=== PATIENT | male | born 1960 | race Hispanic/Latino ===

== ENCOUNTER 2017-07-05 15:20 | Inpatient (IN) | payer MEDICARE ==
[2017-07-05 16:10] LABS: Bilirubin Negative (Negative); Blood, Urine Large (Negative); Glucose, Urine (Dipstick) Negative (Negative); Ketone, Urine Negative (Negative); Nitrite Positive (Negative); Protein, Urine (Dipstick) 100 mg/dL (Neg-Trace)
[2017-07-05 16:13] LABS: Bacteria/HPF 3+ HPF (None Seen); Hyaline Casts/LPF 0-3 HYALINE CAST LPF (0-3 Hyaline); RBC/HPF GREATER THAN 50-TNTC HPF (0-3); Squamous Epithelial 0-3 HPF (0-3)
--- NOTE | 2017-07-05 16:22 | RAD ---
PORTABLE CHEST ONE VIEW: Date: 07-05-17 Time: 4:09 p.m. History: Dyspnea. FINDINGS/IMPRESSION: Comparison made with exam of 04-10-17. There are changes of median sternotomy. Left sided AICD remains in place. The heart is enlarged. Mil d pulmonary vascular congestion is present. No lobar consolidation, pneumothorax, or large effusions are seen. POS: [facility]
[2017-07-05 16:25] LABS: Renal Epithelial None Seen HPF (0-3); Transitional Epithelial NONE SEEN HPF (0-3)
[2017-07-05 16:27] LABS: #Lymphocytes 0.5 thou/uL (1.20-3.40); #Monocytes 0.4 thou/uL (0.11-0.59); #Neutrophils 3.3 thou/uL (1.40-6.50); %Basophils 0.2 % (0.0-1.0); %Eosinophils 0.8 % (0.0-10.0); %Lymphocytes 11.4 % (21.0-51.0); %Monocytes 9.8 % (0.0-10.0); Hematocrit 26.2 % (42.0-52.0); Mean Platelet Volume 8.6 fL (7.4-10.4); Red Blood Cell (RBC) Count 2.59 mill/uL (4.70-6.10); White Blood Cell (WBC) Count 4.2 thou/uL (4.8-10.8)
[2017-07-05 16:32] LABS: ALT (SGPT) 7 U/L (8-55); AST (SGOT) 18 U/L (5-34); Alkaline Phosphatase 261 U/L (40-150); Anion Gap 16 mmol/L (10-20); BUN (Urea Nitrogen) 30 mg/dL (8.4-25.7); Bilirubin, Total 1.4 mg/dL (0.2-1.2); CK (CPK) 54 U/L (30-200); Calc. Creatinine Clearance 0 mL/min (70-130); Calcium 8.6 mg/dL (7.8-10.44); Carbon Dioxide 30 mmol/L (22-29); Chloride 100 mmol/L (98-107); Estimated GFR-MDRD 43; Globulin 3.6 g/dL (2.4-3.5); Protein, Total 6.6 g/dL (6.0-8.3)
[2017-07-05 16:35] LABS: Lactic Acid - Sepsis 2.4 mmol/L (0.5-2.2)
[2017-07-05 16:36] LABS: Troponin I 0.048 ng/mL (< 0.028)
[2017-07-05] MEDS ORDERED: Piperacillin/Tazobactam 3.375 GM in Sodium Chloride 0.9% 100 ML IVPB SCH (17:45)
[2017-07-05] MEDS ORDERED: Ondansetron ODT 4 MG TAB PO PRN (21:55)
[2017-07-05] MEDS ORDERED: Dextrose 5% in Water 1,000 ML IV PRN (21:55)
[2017-07-05] MEDS ORDERED: Acetaminophen 500 MG TAB PO PRN (21:55)
[2017-07-05] MEDS ORDERED: Non-Formulary Item 1 EACH (Ranitidine Hcl [Ranitidine Hcl] 150 MG) PO SCH (21:55)
[2017-07-05] MEDS ORDERED: hydrALAZINE 20 MG/ML VIAL SLOW IVP PRN (21:55)
[2017-07-05] MEDS ORDERED: cloNIDine 0.1 MG TAB PO PRN (21:55)
[2017-07-05] MEDS ORDERED: Dextrose 50% Abboject 50 ML SYRINGE SLOW IVP PRN (21:55)
[2017-07-05] MEDS ORDERED: HumaLOG 300 UNITS/3 ML VIAL SC PRN (21:55)
[2017-07-05] MEDS ORDERED: Ondansetron HCl/PF 4 MG/2 ML Vial IVP PRN (21:55)
[2017-07-05] MEDS ORDERED: Sodium Chloride 0.9% 1,000 ML IV SCH (22:02)
[2017-07-05] MEDS ORDERED: Acetaminophen 325 MG TAB PO PRN (22:02)
[2017-07-05] MEDS: Sodium Chloride 0.9% 1,000 ML IV SCH (22:39)
--- NOTE | 2017-07-05 23:52 | HP ---
PRIMARY CARE PROVIDER: Dr. Morales. CHIEF COMPLAINT: Shortness of breath and chest pain. HISTORY OF PRESENT ILLNESS: This is a 57-year-old male who was recently placed on hospice with the [facility] agency over the last month and a half according to the patient. The patient stat es that he had increasing shortness of breath and swelling in the scrotum and lower extremities with some chest pain. The patient admitted to substernal chest pain over the last several hours prior t o evaluation in the emergency room, and was evaluated by EMS personnel, given 1 aspirin and 2 sublin gual nitroglycerins. The patient was also placed on oxygen supplementation and brought to the emerg ency room for evaluation. The patient states that he revoked his hospice status, stating that he di d not want to and wanted treatment. The patient denied any specific fever or chills, but admits to a cough over the last 7-9 months. The patient admits the sputum is brownish in appearance witho ut hemoptysis. The patient states he is minimally ambulatory at home, needing some assistance due t o a left udwiz-wbw-usvy amputation with a prosthesis device. The patient denied any recent fall or chest trauma. The patient initially rated the pain in chest, 8/10, worse with deep inspiration, imp roved with resting. The patient states that he was unhappy with hospice care and decided to revoke hospice and pursue treatment. The patient states approximately a week prior to this evaluation, he was given a Novak catheter due to urinary retention and [facility]. In the emergency room, the patient underwent general evaluation including chest imaging showing mild pulmonary vascular prominence. The patient also underwent urinalysis showing suspicious for ur inary tract infection and elevated lactic acid level of 2.4. The patient received IV vancomycin, Zo syn and Levaquin in addition to 1 liter of normal saline. The patient met sepsis criteria and has b een referred to the Hospitalist Service for admission. PAST MEDICAL HISTORY: 1. Coronary artery disease status post cardiac stent placement in 02/2017. 2. 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 3. Peripheral vascular disease. 4. Congestive heart failure with ejection fraction of 25% to 30%. 5. Dyslipidemia. 6. Chronic obstructive pulmonary disease. 7. Chronic kidney disease stage 2. PAST SURGICAL HISTORY: 1. Status post 5-vessel coronary artery bypass grafting. 2. Status post cardiac stent placement x3 in 02/2017. 3. Status post left mzioy-hui-sfiv amputation. 4. Status post amputation of several toes on the right foot. 5. Status post lumbar spine surgery. 6. Status post right rotator cuff repair. 7. Status post AICD placement. CURRENT MEDICATIONS: 1. Albuterol sulfate 90 mcg 2 puffs inhaled q.6 hours p.r.n. 2. Anoro Ellipta 1 puff inhaled daily. 3. Aspirin 81 mg 1 tab p.o. daily. 4. Lipitor 40 mg 1 tab p.o. at bedtime. 5. Carvedilol 6.25 mg p.o. b.i.d. 6. Plavix 37.5 mg p.o. daily. 7. Ferrous sulfate 325 mg 1 tab p.o. daily. 8. Gabapentin 800 mg p.o. t.i.d. 9. [place] 10/325 mg 1 tab p.o. q.8 hours p.r.n. pain. 10. Dulcolax suppositories 10 mg rectally daily p.r.n. constipation. 11. Glargine insulin 5 units subcutaneously t.i.d. 12. DuoNebs t.i.d. p.r.n. 13. Isosorbide mononitrate 15 mg p.o. daily. 14. Lasix 120 mg 1-1/2 tablets b.i.d. 15. Levsin 0.125 mg p.o. q.4 hours p.r.n. 16. Nitroglycerin 0.4 mg sublingually q.5 minutes p.r.n. chest pain. 17. Protonix 40 mg 1 tab p.o. b.i.d. 18. Potassium chloride 20 mg p.o. daily. 19. Ranitidine 150 mg p.o. t.i.d. 20. Sertraline 50 mg 1 tab p.o. at bedtime. 21. Tamsulosin 0.4 mg p.o. daily. 22. Tessalon Perles 100 mg p.o. t.i.d. p.r.n. ALLERGIES: No known drug allergies. FAMILY HISTORY: Mother at 73 years of age, alive and well. SOCIAL HISTORY: Patient resides in [place], [place]. Smoked up to 3-4 cigarettes his entire life. No alcohol use. Smokes marijuana daily. Previously on hospice with [facility], asim ently revoked. REVIEW OF SYSTEMS: Otherwise negative except as stated per HPI. Constitutional: Weight loss or gain, ability to conduct usual activities. Skin: Rash, itching. Eyes: Double vision, pain. ENT/Mouth: Nose bleeding, neck stiffness, pain, tenderness. Cardiovascular: Palpitations, dyspnea on exertion, orthopnea. Respiratory: Shortness of breath, wheezing, cough, hemoptysis, fever or night sweats. Gastrointestinal: Poor appetite, abdominal pain, heartburn, nausea, vomiting, constipation, or diar thu. Genitourinary: Urgency, frequency, dysuria, nocturia. Musculoskeletal: Pain, swelling. Neurologic/Psychiatric: Anxiety, depression. Allergy/Immunologic: Skin rash, bleeding tendency. PHYSICAL EXAMINATION: VITAL SIGNS: On admission, blood pressure 109/50, pulse 60, respiratory rate 17, temperature 98.2 d egrees Fahrenheit and O2 saturation 98% on 3 liters per minute by nasal cannula. GENERAL APPEARANCE: This is a 57-year-old male, alert and oriented x3, pleasant, conversan t, in no acute distress. HEENT: Pupils are equal, round and reactive to light and accommodation. Extraocular muscles are in tact. No scleral icterus, no conjunctival injection. Nares patent. OP is clear. NECK: Supple. No cervical adenopathy, no thyromegaly, no carotid bruits, no JVD appreciated. Cerv ical spine with full active and passive range of motion. CHEST: Decreased breath sounds in the bases bilaterally. Occasional scattered rhonchi. CARDIOVASCULAR: S1 and S2 with distant heart sounds. ABDOMEN: Obese, firm, nontender and nondistended. Bowel sounds are positive in all four quadrants. There is no hepatosplenomegaly, no abdominal bruits, no rebound or guarding appreciated. [place] s are difficult to palpate due to patient's body habitus. EXTREMITIES: Right lower extremity with edema to the knee. Hyperpigmentation changes consistent wi th chronic venous stasis. Pulses diminished bilaterally at the right dorsalis pedis, posterior tibi al and popliteal arteries. Left lower extremity with below the knee amputation, stump intact with p rosthesis in place. NEUROLOGIC: Cranial nerves II-XII are grossly intact. No focal or lateralizing signs appreciated. PERTINENT LABORATORY AND X-RAY FINDINGS: Sodium 142, potassium 4.3, chloride 100, CO2 of 30, BUN 30 , creatinine 1.65 with estimated GFR of 43, glucose 144, lactic acid level 2.4, calcium 8.6, total b ilirubin 1.4, AST 18, ALT of 7, alkaline phosphatase 61, total CK 54, troponin 0.048. BNP 1175 prev iously noted at 619 822, albumin 3.0. CBC showed a white blood cell count 4.2, hemoglobin 8.3, dereck tocrit 26.2, MCV 101, platelet count 75 with 78% neutrophils. Urinalysis showed positive protein, l arge amount of blood, positive nitrite, large leukocyte esterase with greater than 50 to too numerou s to count rbc's per high power field and 11-20 wbc's per high powered field, 3+ bacteria noted. Po rtable chest x-ray dated 07/05/2017 showed mild pulmonary vascular prominence. Left-sided AICD mich ce in place. No lobar consolidation. EKG dated 07/05/2017 by my interpretation shows sinus mechani sm with heart rates in the 70s. Attenuated R waves noted in the precordial leads. Normal axis. No acute ST-T wave changes appreciated. T-wave flattening in lead V5 and V6. ASSESSMENT AND PLAN: 1. Sepsis. Patient will be admitted to the Intermediate Care Unit. Suspected urinary tract source preliminarily. We will continue Rocephin 1 gram IV q.12 hours with additional vancomycin 1 gram IV q.12 hours. Await urine and blood culture results. Continue intravenous normal saline at 75 mL pe r hour. Repeat lactate per protocol. 2. Hypotension secondarily to #1, improved with IV fluid hydration. Continue low volume IV fluid r eplacement and avoid antihypertensive medications. 3. Acute kidney injury on chronic kidney disease stage 2. We will continue intravenous fluids as o utlined previously. Avoid nephrotoxic agents and contrast media. Repeat creatinine in the a.m. 4. Chest pain. Suspect secondarily to #1. No current evidence to suggest acute coronary syndrome. Monitor on the telemetry unit. Continue aspirin 81 mg and Plavix 37.5 mg daily. 5. Diabetes mellitus type 2, insulin requiring. Insulin sliding scale for reflexive coverage. Ser ial Accu-Cheks. ADA diet. Resume Glargine insulins 5 units subcutaneously daily. 6. Chronic obstructive pulmonary disease. No evidence to suggest an acute exacerbation. Continue general pulmonary supportive measures. Oxygen as needed to maintain O2 saturations greater than or equal to 90%. 7. Chronic macrocytic anemia. Stable currently. Continue to monitor hemoglobin trend. No evidenc e to suggest acute blood loss. 8. Ischemic cardiomyopathy with ejection fraction of 25% to 30%. We will continue close monitoring of cardiopulmonary status. Continue Lasix 40 mg p.o. b.i.d. 9. Deconditioning. PT, OT evaluation in the a.m. for functional assessment. 10. Prophylaxis. Sequential compression devices while in bed. Protonix 40 mg p.o. b.i.d. 11. Code status is full. Surrogate medical decision maker is patient's son.
[2017-07-06] MEDS: cefTRIAXone\\ROCEPHIN 2 GM, Admixture Fee 1 EACH in Sodium Chloride 0.9% 100 ML IVPB SCH ×2 (00:22→23:27)
[2017-07-06] MEDS: HYDROcodone/Acetaminophen 10/325 mg Tablet PO PRN ×2 (00:23→20:44)
[2017-07-06] MEDS: Vancomycin HCl 1 GM in Premix Bag 1 BAG IVPB SCH ×2 (05:15→15:18)
[2017-07-06 05:34] LABS: ALT (SGPT) Less than 7 U/L (8-55); AST (SGOT) 17 U/L (5-34); Alkaline Phosphatase 232 U/L (40-150); Anion Gap 10 mmol/L (10-20); BUN (Urea Nitrogen) 29 mg/dL (8.4-25.7); Bilirubin, Total 0.9 mg/dL (0.2-1.2); Calc. Creatinine Clearance 81 mL/min (70-130); Calcium 8.2 mg/dL (7.8-10.44); Carbon Dioxide 33 mmol/L (22-29); Chloride 101 mmol/L (98-107); Estimated GFR-MDRD 46; Globulin 3.4 g/dL (2.4-3.5); Protein, Total 6.1 g/dL (6.0-8.3)
[2017-07-06 05:53] LABS: Band 1 % (5-11); Hematocrit 24.4 % (42.0-52.0); Mean Platelet Volume 9.3 fL (7.4-10.4); Neutrophil 77 % (42-75); Red Blood Cell (RBC) Count 2.41 mill/uL (4.70-6.10); White Blood Cell (WBC) Count 3.6 thou/uL (4.8-10.8)
[2017-07-06] MEDS: HumaLOG 300 UNITS/3 ML VIAL SC PRN (06:22)
[2017-07-06] MEDS ORDERED: Non-Formulary Item 1 EACH (Budesonide-Formoterol [Symbicort 160-4.5] 1 PUFF) INH SCH (06:30)
[2017-07-06] MEDS ORDERED: [UNRECOGNIZED DRUG - OTHER] IH SCH (07:00)
[2017-07-06] MEDS: Gabapentin 400 MG CAP PO SCH ×3 (07:20→20:44)
[2017-07-06] MEDS: Ferrous Sulfate 325 MG TAB PO SCH (07:20)
[2017-07-06] MEDS: Clopidogrel Bisulfate 75 MG TAB PO SCH (07:21)
[2017-07-06] MEDS: Famotidine 20 MG TAB PO SCH ×2 (07:21→20:44)
[2017-07-06] MEDS: Pantoprazole 40 MG GRANULES PACKET PO SCH (07:21)
[2017-07-06] MEDS: Mometasone/Formoterol 120 PUFF INHALER INH SCH ×2 (07:38→18:32)
[2017-07-06] MEDS: Insulin Detemir 100 UNITS/ML 5 UNITS in Pre-Filled Syringe 1 EACH SC SCH (08:17)
[2017-07-06] MEDS ORDERED: Non-Formulary Item 1 EACH (Insulin Glargine,Hum.Rec.Anlog 5 UNIT) SQ SCH (09:00)
--- NOTE | 2017-07-06 10:22 | CON ---
DATE OF CONSULTATION: 07/06/2017 HISTORY OF PRESENT ILLNESS: Usman Hein is a 57-year-old obese gentleman who seeks normally care at [facility]. 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 He presented with generalized anasarca, fluid overload and shortness of breath. He was smoking until 2 weeks ago, cigarettes. He also smokes marijuana. He apparently was on hospice which he revo ked. He did not go to [facility] because apparently they were not helping his medical problems. Extensive history with a recent discharge here with a diagnosis of congestive heart failure, EF is at 20-30%. He has a left leg amputation which prevents him from ambulating. Denies any fever, chills, sweats, hemoptysis. PAST MEDICAL HISTORY: Coronary artery disease, diabetes, hypertension, COPD, peripheral vascular dis ease, CVA, hemiparesis. PAST SURGICAL HISTORY: Left BKA, right foot surgery, a single chamber ICD, coronary artery bypass gr aft, multiple stents, spine, back, shoulder surgery. MEDICATIONS: Anoro, tamsulosin, sertraline, potassium, Zofran, morphine, ISMO, DuoNeb, gabapentin, L asix 180, Plavix 75, Coreg, Tessalon, atorvastatin. On his admission he was started on ceftriaxone and vancomycin for presumed infection. LABORATORY AND X-RAY FINDINGS: X-ray shows as noted CHF. White count 3.6, H&H 7 and 24, platelet count is low at 70,000, 77 segs. Creatinine 1.56[place] [address]. Urine is growing Proteus. IMPRESSION: 1. Respiratory failure. 2. Congestive heart failure, ejection fraction 20%. 3. Ongoing tobacco. 4. Chronic obstructive pulmonary disease. 5. Peripheral vascular disease. 6. Renal failure. 7. Anemia. 8. Severe thrombocytopenia. PLAN: I have started neb treatments, deescalate antibiotics once we have all cultures back. [facility] max care as per Cardiology. I will follow while in the [facility].
[2017-07-06] MEDS: Sodium Chloride 0.9% 1,000 ML IV SCH (15:19)
[2017-07-06] MEDS: Furosemide 40 MG/4 ML VIAL SLOW IVP SCH (15:19)
--- NOTE | 2017-07-06 15:52 | PDOC.PN ---
- Subjective Encounter Start Date: 07/06/17 Encounter Start Time: 15:10 Subjective: f/u for sepsis, UTI with Proteus spp. Currently feeling better overall. -: No fever or chills. Some swelling in L thigh and flank region. Appetite -: good. - Objective Resuscitation Status: Resuscitation Status FULL:Full Resuscitation MAR Reviewed: Yes Vital Signs & Weight: Vital Signs (12 hours) Temp Pulse Resp BP Pulse Ox 07/06/17 13:00 61 19 99 07/06/17 07:47 98.0 F 56 L 16 110/60 98 07/06/17 07:39 99 07/06/17 07:08 98.0 F 61 16 100 Weight Weight 240 lb 3.2 oz I&O: 07/05/17 07/06/17 07/07/17 06:59 06:59 06:59 Intake Total 2215 Output Total 1800 Balance 415 Result Diagrams: 07/06/17 04:04 07/06/17 04:04 Additional Labs: Accuchecks 07/06/17 07/06/17 07/05/17 11:10 05:17 22:05 POC Glucose 131 H 166 H 116 H Microbiology 07/05/17 16:00 Urine lawrence catheter Urine Culture - Preliminary Proteus mirabilis 07/05/17 15:55 Venous blood - Right Arm Blood Culture - Preliminary Specimen has been received and culture in progress. No Growth to date. 07/05/17 15:43 Venous blood - Left Hand Blood Culture - Preliminary Specimen has been received and culture in progress. No Growth to date. Laboratory Tests 07/05/17 07/05/17 15:43 15:43 WBC 4.2 L Hgb 8.3 L Plt Count 75 L Creatinine 1.65 H EKG Reviewed by me: Yes (Tele - SR in 70's) Phys Exam - Physical Examination Constitutional: NAD alert, responsive HEENT: PERRLA, oral pharynx no lesions Neck: no JVD, supple diminished in bases bilat Cardiovascular: RRR obese, firm Gastrointestinal: non-tender, positive bowel sounds + edema of L thigh and L flank region L femoral stump intact Musculoskeletal: pulses present Neurological: normal sensation, moves all 4 limbs Psychiatric: A&O x 3 Skin: normal turgor, cap refill <2 seconds Dx/Plan (1) Sepsis Code(s): A41.9 - SEPSIS, UNSPECIFIED ORGANISM Status: Acute Comment: Secondary to UTI with Proteus spp, continue Rocephin another 24h until final sensitivities available, saline lock IVF's (2) BARB (acute kidney injury) Code(s): N17.9 - ACUTE KIDNEY FAILURE, UNSPECIFIED Status: Acute Comment: Improved, saline lock IVF, avoid nephrotoxic meds and contrast media (3) Hypotension Status: Acute Comment: Secondary to #1, improved (4) DM type 2 (diabetes mellitus, type 2) Status: Chronic Comment: Resume Levemir, ISS, serial accuchecks (5) PVD (peripheral vascular disease) Code(s): I73.9 - PERIPHERAL VASCULAR DISEASE, UNSPECIFIED Status: Chronic Comment: Supportive, continue ASA 81mg daily - Plan continue antibiotics, PT/OT, social services assistant, out of bed/ambulate Stable currently -: Continue Rocephin and Vancomycin another 24h pending final cx -: sensitivities -: Saline lock IVF's -: Transfer to Tele unit * AM lab: CMP, CBC
[2017-07-06] MEDS ORDERED: Benzonatate 100 MG CAP PO PRN (16:00)
[2017-07-06] MEDS ORDERED: PROVENTIL INHALER 6.7 G (200 INHALATIONS) INH PRN (16:15)
[2017-07-06] MEDS: Atorvastatin Calcium 40 MG TAB PO SCH (20:44)
[2017-07-06] MEDS: Carvedilol 6.25 MG TAB PO SCH (20:44)
[2017-07-06] MEDS ORDERED: Furosemide 20 MG TAB PO SCH (21:00)
[2017-07-07 05:14] LABS: Band 4 % (5-11); Hematocrit 24.7 % (42.0-52.0); Mean Platelet Volume 8.4 fL (7.4-10.4); Neutrophil 64 % (42-75); Red Blood Cell (RBC) Count 2.46 mill/uL (4.70-6.10); White Blood Cell (WBC) Count 4.1 thou/uL (4.8-10.8)
[2017-07-07 05:18] LABS: Vancomycin, Trough 19.2 ug/mL
[2017-07-07 05:22] LABS: ALT (SGPT) 7 U/L (8-55); AST (SGOT) 15 U/L (5-34); Alkaline Phosphatase 235 U/L (40-150); Anion Gap 10 mmol/L (10-20); BUN (Urea Nitrogen) 27 mg/dL (8.4-25.7); Bilirubin, Total 0.8 mg/dL (0.2-1.2); Calc. Creatinine Clearance 82 mL/min (70-130); Calcium 8.4 mg/dL (7.8-10.44); Carbon Dioxide 34 mmol/L (22-29); Chloride 100 mmol/L (98-107); Estimated GFR-MDRD 49; Globulin 3.4 g/dL (2.4-3.5); Protein, Total 6.2 g/dL (6.0-8.3)
[2017-07-07] MEDS: Vancomycin HCl 1 GM in Premix Bag 1 BAG IVPB SCH (05:49)
[2017-07-07] MEDS: Furosemide 40 MG/4 ML VIAL SLOW IVP SCH ×2 (05:50→14:06)
[2017-07-07] MEDS: Mometasone/Formoterol 120 PUFF INHALER INH SCH ×2 (07:05→18:59)
--- NOTE | 2017-07-07 07:10 | PDOC.EVN ---
Event Note - Event Note Event Note: RN called with 1/2 positive blood culture - already on Vancomycin
[2017-07-07] MEDS: Famotidine 20 MG TAB PO SCH ×2 (10:08→20:49)
[2017-07-07] MEDS: Cefdinir 300 MG CAP PO SCH ×2 (10:08→20:48)
[2017-07-07] MEDS: Ferrous Sulfate 325 MG TAB PO SCH (10:08)
[2017-07-07] MEDS: Gabapentin 400 MG CAP PO SCH ×3 (10:08→20:48)
[2017-07-07] MEDS: Clopidogrel Bisulfate 75 MG TAB PO SCH (10:08)
[2017-07-07] MEDS: Pantoprazole 40 MG GRANULES PACKET PO SCH (10:09)
[2017-07-07] MEDS: Aspirin 81 mg Enteric Coated Tablet PO SCH (10:09)
[2017-07-07] MEDS: Carvedilol 6.25 MG TAB PO SCH ×2 (10:09→20:52)
[2017-07-07] MEDS: Insulin Detemir 100 UNITS/ML 5 UNITS in Pre-Filled Syringe 1 EACH SC SCH (10:10)
--- NOTE | 2017-07-07 12:01 | PDOC.PN ---
- Subjective Encounter Start Date: 07/07/17 Encounter Start Time: 11:30 Subjective: f/u of sepsis and UTI with Proteus spp. Currently on Omnicef. Feeling fine -: no SOB or fever. Working with PT for mobilization. - Objective Resuscitation Status: Resuscitation Status FULL:Full Resuscitation MAR Reviewed: Yes Vital Signs & Weight: Vital Signs (12 hours) Temp Pulse Resp BP BP Pulse Ox 07/07/17 10:09 128/65 07/07/17 08:18 97.5 F L 64 17 128/65 94 L 07/07/17 08:00 97.5 F L 59 L 20 94 L 07/07/17 07:08 100 07/07/17 07:05 59 L 20 100 07/07/17 04:50 100 07/07/17 04:00 97.6 F 61 18 120/61 97 07/07/17 02:01 58 L 16 100 Weight Weight 233 lb I&O: 07/06/17 07/07/17 07/08/17 06:59 06:59 06:59 Intake Total 2215 2440 240 Output Total 1800 2465 Balance 415 -25 240 Result Diagrams: 07/07/17 04:34 07/07/17 04:34 Additional Labs: Accuchecks 07/07/17 07/06/17 07/06/17 05:31 20:33 15:44 POC Glucose 119 H 130 H 142 H Radiology Reviewed by me: Yes (2D echo - EF 25-30%, severe TR, LAE) EKG Reviewed by me: Yes (Tele - sinus rosanna in 50's) Phys Exam - Physical Examination Constitutional: NAD HEENT: PERRLA, oral pharynx no lesions Neck: no JVD, supple diminished in bases Cardiovascular: RRR firm Gastrointestinal: soft, non-tender, positive bowel sounds LLE stump intact Musculoskeletal: pulses present, edema present Neurological: normal sensation, moves all 4 limbs Psychiatric: A&O x 3 Skin: normal turgor, cap refill <2 seconds Dx/Plan (1) Sepsis Code(s): A41.9 - SEPSIS, UNSPECIFIED ORGANISM Status: Acute Comment: Secondary to UTI with Proteus spp, continue Omnicef 300mg BID, saline lock IVF's , resolving (2) BARB (acute kidney injury) Code(s): N17.9 - ACUTE KIDNEY FAILURE, UNSPECIFIED Status: Acute Comment: Improved, saline lock IVF, avoid nephrotoxic meds and contrast media (3) Hypotension Status: Acute Comment: Secondary to #1, improved (4) DM type 2 (diabetes mellitus, type 2) Status: Chronic Comment: Resume Levemir, ISS, serial accuchecks (5) PVD (peripheral vascular disease) Code(s): I73.9 - PERIPHERAL VASCULAR DISEASE, UNSPECIFIED Status: Chronic Comment: Supportive, continue ASA 81mg daily (6) Ischemic cardiomyopathy Code(s): I25.5 - ISCHEMIC CARDIOMYOPATHY Status: Chronic Comment: EF 25-30% , Lasix 40mg IV q12h, follow I/O's (7) Pancytopenia Code(s): D61.818 - OTHER PANCYTOPENIA Status: Chronic Comment: ? etiology, check Iron, Ferritin, Retic count, B12/Folate and stool guaiac - Plan continue antibiotics, PT/OT, hospice social worker, respiratory therapy, out of bed/ ambulate Stable overall -: Continue Lasix 40mg IV q12h -: Saline lock IVF's -: PT for mobilization -: AM lab: BMP, CBC, Ferritin, Iron, Retic count, B12/Folate * .
--- NOTE | 2017-07-07 12:38 | PQF ---
CLINICAL DOCUMENTATION IMPROVEMENT CLARIFICATION FORM: ICD-10 Updated PLEASE DO AN ADDENDUM TO THE PROGRESS NOTE WITH ANY DOCUMENTATION UPDATES OR ADDITIONS AND CARRY THROUGH TO DC SUMMARY. THANK YOU. DATE: 07/07 ATTN: DR. OSMANI CHANDRA Please exercise your independent, professional judgment in responding to the clarification form. Clinical indicators are provided on the bottom of this form for your review Please check appropriate box(s): [ x ] UTI please specify if due to or related to (as applicable): [ x ] Indwelling catheter [ ] Not r/t Indwelling catheter [ ] Unable to determine etiology [ ] Other diagnosis [ ] Unable to determine For continuity of documentation, please document condition throughout progress notes and discharge summary. Thank You. CLINICAL INDICATORS - SIGNS / SYMPTOMS / LABS ER PHYSICIAN DOCUMENTATION 07/05: HE PRESENTED WITH A EASTON D/T TESTICULAR SWELLING THAT WAS PLACED ONE WEEK AGO URINE CX SOURCE 07/05: EASTON CATHETER POSITIVE URINALYSIS ATTENDING PHYSICIAN PN 07/06 & DOCUMENTATION: DX/PLAN: 1. SEPSIS 2/2 UTI RISK FACTORS: EASTON CATHETER PLACED 1 WEEK AGO FOR TESTICULAR SWELLING URINARY RETENTION TREATMENT: IV ANTIBIOTICS (VANCOMYCIN 07/05 - ; IV ROCEPHIN 07/05 - ) IVF (NS 07/05 - ) THANK YOU! Manuela (This form is maintained as a part of the permanent medical record) 2015 [employer]. All Rights Reserved Manuela Moon RN, BSN [email or web address] Office: [phone] [facility]
--- NOTE | 2017-07-07 12:44 | PRG ---
DATE OF SERVICE: 07/07/2017 SUBJECTIVE: Usman Hein this morning is better, less short of breath, less coughing. PHYSICAL EXAMINATION: VITAL SIGNS: Stable. Blood pressure 120/65, sats are 97% on 2 liters, temperature 97.5. I's and O' s are 2440 in and 2465 out. CHEST: Bilateral crackles. CARDIAC: Normal S1, S2, no gallops. ABDOMEN: Soft, no masses. LABORATORY DATA: White count 4,000, hemoglobin and hematocrit is 7 and 24, platelet count is low at 72, creatinine 1.49. Urine is growing Proteus sensitive pretty much. Hold the antibiotics. Suggest deescalating antibiotics, we will notify Dr. Antoine who has seen the patient in the past. Continue cardiac cath.
--- NOTE | 2017-07-07 15:15 | PRG ---
DATE OF SERVICE: 07/07/2017 SERVICE: Pulmonary Medicine. INTERVAL HISTORY: The patient is doing fine from a cardiovascular and respiratory standpoint. He de nies any current fevers, chills, nausea, or vomiting. His breathing is much improved. With the diur etics, he is pulling more fluid off. His lower extremity swelling is improving based on omi zimmer. PHYSICAL EXAMINATION: VITAL SIGNS: Afebrile, pulse 65, blood pressure 134/69, respirations 17, and saturation 99% on 3 lit ers nasal cannula. GENERAL: Patient is awake, alert, no apparent distress. LUNGS: Decent air entry. Dependent crackles are present with no prolonged expiratory phase, wheezin g or rhonchi. HEART: Normal rate, regular. ABDOMEN: Soft, nontender, nondistended. Bowel sounds positive. MUSCULOSKELETAL: No cyanosis or clubbing. Left leg is surgically absent below the knee. He has a r ight transmetatarsal amputation. He has got 2+ pitting in the bilateral lower extremities. GENITOURINARY: Novak catheter in place. NEUROLOGIC: Grossly nonfocal. LABORATORY DATA: WBC 4.1, hemoglobin 7.8, and platelets 72,000. INR 1.49, which is gently down tren ding. Basic metabolic profile is otherwise unremarkable. Alkaline phosphatase is 235. AST and ALT are otherwise normal. Vancomycin trough is 19.2. He has significant red blood cells in the urine. Urine culture is growing Proteus mirabilis, which is pansensitive. One out of two blood cultures is growing coag negative staph. ASSESSMENT: 1. Acute on chronic systolic and diastolic heart failure. 2. Acute hypoxic respiratory failure. 3. Urinary tract infection. 4. Peripheral vascular disease, severe. PLAN: We can direct antibiotics at his Proteus mirabilis. IV fluids will be minimized. We will con tinue to diurese the patient to euvolemia. Pulmonary will continue to follow for the time being.
[2017-07-07] MEDS: Atorvastatin Calcium 40 MG TAB PO SCH (20:49)
[2017-07-08] MEDS: Guaifenesin DM 100-10/5 ML UDCUP PO PRN (03:05)
[2017-07-08 05:35] LABS: Hematocrit 25.9 % (42.0-52.0); Mean Platelet Volume 9.9 fL (7.4-10.4); Red Blood Cell (RBC) Count 2.55 mill/uL (4.70-6.10); White Blood Cell (WBC) Count 3.9 thou/uL (4.8-10.8)
[2017-07-08 05:45] LABS: Anion Gap 9 mmol/L (10-20); BUN (Urea Nitrogen) 28 mg/dL (8.4-25.7); Calc. Creatinine Clearance 79 mL/min (70-130); Calcium 8.5 mg/dL (7.8-10.44); Carbon Dioxide 32 mmol/L (22-29); Chloride 100 mmol/L (98-107); Estimated GFR-MDRD 46; Iron 39 ug/dL (65-175)
[2017-07-08 05:52] LABS: IRF 0.294 Ratio (0.163-0.362); Reticulocyte Count 1.3 % (0.5-1.5)
[2017-07-08 06:00] LABS: Band 1 % (5-11); Neutrophil 83 % (42-75)
[2017-07-08] MEDS: Furosemide 40 MG/4 ML VIAL SLOW IVP SCH (06:27)
[2017-07-08] MEDS: Mometasone/Formoterol 120 PUFF INHALER INH SCH ×2 (08:31→18:37)
[2017-07-08] MEDS: Carvedilol 6.25 MG TAB PO SCH ×2 (09:32→21:25)
[2017-07-08] MEDS: Clopidogrel Bisulfate 75 MG TAB PO SCH (09:32)
[2017-07-08] MEDS: Aspirin 81 mg Enteric Coated Tablet PO SCH (09:32)
[2017-07-08] MEDS: Cefdinir 300 MG CAP PO SCH ×2 (09:32→21:26)
[2017-07-08] MEDS: Famotidine 20 MG TAB PO SCH ×2 (09:33→21:26)
[2017-07-08] MEDS: Ferrous Sulfate 325 MG TAB PO SCH (09:33)
[2017-07-08] MEDS: Gabapentin 400 MG CAP PO SCH ×3 (09:33→21:26)
[2017-07-08] MEDS: Insulin Detemir 100 UNITS/ML 5 UNITS in Pre-Filled Syringe 1 EACH SC SCH (09:36)
--- NOTE | 2017-07-08 12:19 | PDOC.PN ---
- Subjective Encounter Start Date: 07/08/17 Encounter Start Time: 11:30 Pt seen and examined, chart reviewed in its entirety. This is my first visit with this patient. Pt complaint of dry nose today. says hes still 30 pounds up from dry weight since admit, improved form the initial 40. No F/C,no N/V/d/C. not able to walk due to RLE stump edema and inability to wear prosthesis. discussed with case management. Pt plans ot head [facility] on D/c to be with girlfriend. not willing to do rehab. 10 point ROS performed and neg for all systems except as above - Objective Resuscitation Status: Resuscitation Status FULL:Full Resuscitation MAR Reviewed: Yes Vital Signs & Weight: Vital Signs (12 hours) Temp Pulse Resp BP BP Pulse Ox 07/08/17 09:32 142/64 H 07/08/17 08:31 73 16 07/08/17 08:24 94 L 07/08/17 08:22 73 16 07/08/17 07:56 97.8 F 66 16 142/64 H 93 L 07/08/17 04:00 98.0 F 65 20 113/58 L 96 07/08/17 00:18 60 16 Weight Admit Weight 240 lb 3.2 oz Weight 234 lb I&O: 07/07/17 07/08/17 07/09/17 06:59 06:59 06:59 Intake Total 2440 1440 Output Total 2465 1925 Balance -25 -744 Result Diagrams: 07/08/17 04:45 07/08/17 04:44 Additional Labs: Accuchecks 07/08/17 07/08/17 07/07/17 11:44 06:21 20:27 POC Glucose 126 H 108 386 H 07/07/17 17:12 POC Glucose 177 H Radiology Reviewed by me: Yes EKG Reviewed by me: Yes Phys Exam - Physical Examination Constitutional: NAD HEENT: PERRLA, moist MMs, sclera anicteric, oral pharynx no lesions Neck: no nodes, supple, full ROM Respiratory: no wheezing, no rales, no rhonchi faint bibasilar rales Cardiovascular: RRR, no significant murmur, no rub HSM, 2/6 LLSB Gastrointestinal: soft, non-tender, no distention, positive bowel sounds Musculoskeletal: pulses present edema MALLORY, including RLE BKA stump Neurological: non-focal, normal sensation, moves all 4 limbs Lymphatic: no nodes Psychiatric: normal affect, A&O x 3 Skin: no rash, normal turgor, cap refill <2 seconds Dx/Plan (1) UTI (urinary tract infection) Status: Acute Qualifiers: Urinary tract infection type: acute cystitis Hematuria presence: with hematuria Qualified Code(s): N30.01 - Acute cystitis with hematuria Comment: present on admit (2) Proteus (mirabilis) (morganii) as the cause of diseases classified elsewhere Code(s): B96.4 - PROTEUS (MIRABILIS) (MORGANII) CAUSING DIS CLASSD [id number] Status: Acute (3) BARB (acute kidney injury) Code(s): N17.9 - ACUTE KIDNEY FAILURE, UNSPECIFIED Status: Acute Comment: Improved, saline lock IVF, avoid nephrotoxic meds and contrast media. Cr stable form admit, increased eleno march of 2017/. increase lasix, on 40 IV bid , only a fraction of home dose (4) Hypotension Status: Acute Qualifiers: Hypotension type: other hypotension type Qualified Code(s): I95.89 - Other hypotension Comment: Secondary to #1, improved (5) Sepsis Code(s): A41.9 - SEPSIS, UNSPECIFIED ORGANISM Status: Acute Comment: Secondary to UTI with Proteus spp, continue Omnicef 300mg BID, saline lock IVF's , resolving (6) Ischemic cardiomyopathy Code(s): I25.5 - ISCHEMIC CARDIOMYOPATHY Status: Chronic Comment: EF 25-30% , Lasix 40mg IV q12h, follow I/O's (7) Pancytopenia Code(s): D61.818 - OTHER PANCYTOPENIA Status: Chronic Comment: ? etiology, check Iron, Ferritin, Retic count, B12/Folate and stool guaiac (8) Acute on chronic systolic and diastolic heart failure, NYHA class 2 Code(s): I50.43 - ACUTE ON CHRONIC COMBINED SYSTOLIC AND DIASTOLIC HRT FAIL Status: Acute (9) HLD (hyperlipidemia) Code(s): E78.5 - HYPERLIPIDEMIA, UNSPECIFIED Status: Acute Qualifiers: Hyperlipidemia type: unspecified Qualified Code(s): E78.5 - Hyperlipidemia , unspecified (10) HTN (hypertension) Code(s): I10 - ESSENTIAL (PRIMARY) HYPERTENSION Status: Acute Qualifiers: Hypertension type: essential hypertension Qualified Code(s): I10 - Essential (primary) hypertension - Plan cont current plan of care, continue antibiotics, PT/OT * . anticipste discharge as early as tomorrow
[2017-07-08] MEDS: Furosemide 100 MG/10 ML VIAL SLOW IVP SCH (14:55)
--- NOTE | 2017-07-08 15:00 | PRG ---
DATE OF SERVICE: 07/08/2017 SERVICE: Pulmonary Medicine. INTERVAL HISTORY: The patient is doing fine from a respiratory standpoint. He is on room air presen tly. He just got transitioned to room air because his saturations were fine on 1 liter nasal cannula . Otherwise, he did have no complaints of fevers, chills, nausea, vomiting or chest discomfort. His lower extremity swelling is improving, but still prevents him from putting his prosthetic leg on. PHYSICAL EXAMINATION: VITAL SIGNS: Afebrile, pulse 67, blood pressure 129/62, respirations 18, saturation 95% on room air. GENERAL: Awake, alert, in no apparent distress. LUNGS: Excellent air entry. There is no prolonged expiratory phase. I do not appreciate wheezing o r rhonchi. Crackles are much improved. HEART: Normal rate, regular. ABDOMEN: Soft, nontender, nondistended, bowel sounds positive. MUSCULOSKELETAL: No cyanosis or clubbing. No pitting in the bilateral lower extremities. NEUROLOGIC: Grossly nonfocal. LABORATORY DATA: WBC 3.9, hemoglobin 8.1 and stable. Platelets 86,000. Creatinine 1.55 and roughly stable. BUN 28. Basic metabolic profile is otherwise unremarkable. Ferritin is elevated. Folate and B12 fall within normal limits. Vancomycin trough was 19.2. Urinalysis is growing Proteus mirabi lis, which is essentially pansensitive. Coag negative Staph is growing in 1 of 2 blood cultures. ASSESSMENT: 1. Acute on chronic systolic and diastolic heart failure. 2. Acute hypoxic respiratory failure, resolved. 3. Urinary tract infection. 4. Peripheral vascular disease, severe. We will continue diuresing the patient until he returns to euvolemia. He has made a significant headway over the past 48 hours and my hope is that he will cont inue to improve. Pulmonary will continue to follow intermittently during this hospital stay. If he gets into trouble, please call Dr. Ritter over the weekend.
[2017-07-08] MEDS: HYDROcodone/Acetaminophen 10/325 mg Tablet PO PRN (17:04)
[2017-07-08] MEDS: Atorvastatin Calcium 40 MG TAB PO SCH (21:25)
[2017-07-09 05:19] LABS: #Eosinphils 0.1 thou/uL (0.0-0.7); #Lymphocytes 0.5 thou/uL (1.20-3.40); #Monocytes 0.4 thou/uL (0.11-0.59); #Neutrophils 2.7 thou/uL (1.40-6.50); %Basophils 0.5 % (0.0-1.0); %Eosinophils 1.5 % (0.0-10.0); %Lymphocytes 14.6 % (21.0-51.0); %Monocytes 10.1 % (0.0-10.0); Hematocrit 25.2 % (42.0-52.0); Mean Platelet Volume 8.8 fL (7.4-10.4); Red Blood Cell (RBC) Count 2.51 mill/uL (4.70-6.10); White Blood Cell (WBC) Count 3.7 thou/uL (4.8-10.8)
[2017-07-09] MEDS: Furosemide 100 MG/10 ML VIAL SLOW IVP SCH ×2 (05:37→14:13)
[2017-07-09 05:38] LABS: Anion Gap 10 mmol/L (10-20); BUN (Urea Nitrogen) 34 mg/dL (8.4-25.7); Calc. Creatinine Clearance 67 mL/min (70-130); Calcium 8.6 mg/dL (7.8-10.44); Carbon Dioxide 33 mmol/L (22-29); Chloride 100 mmol/L (98-107); Estimated GFR-MDRD 39
[2017-07-09] MEDS: Mometasone/Formoterol 120 PUFF INHALER INH SCH ×2 (07:18→18:48)
[2017-07-09] MEDS: Aspirin 81 mg Enteric Coated Tablet PO SCH (09:40)
[2017-07-09] MEDS: Cefdinir 300 MG CAP PO SCH ×2 (09:40→21:04)
[2017-07-09] MEDS: Famotidine 20 MG TAB PO SCH ×2 (09:41→21:03)
[2017-07-09] MEDS: Clopidogrel Bisulfate 75 MG TAB PO SCH (09:41)
[2017-07-09] MEDS: Insulin Detemir 100 UNITS/ML 5 UNITS in Pre-Filled Syringe 1 EACH SC SCH (09:42)
[2017-07-09] MEDS: Ferrous Sulfate 325 MG TAB PO SCH (09:42)
[2017-07-09] MEDS: Gabapentin 400 MG CAP PO SCH ×3 (09:42→21:03)
[2017-07-09] MEDS: Carvedilol 6.25 MG TAB PO SCH ×2 (09:43→21:04)
--- NOTE | 2017-07-09 12:00 | PDOC.PN ---
- Subjective Encounter Start Date: 07/09/17 Encounter Start Time: 08:00 Subjective: feels better, no sob - Objective Resuscitation Status: Resuscitation Status FULL:Full Resuscitation MAR Reviewed: Yes Vital Signs & Weight: Vital Signs (12 hours) Temp Pulse Resp BP BP Pulse Ox 07/09/17 09:43 132/67 07/09/17 08:00 98.7 F 62 18 132/67 97 07/09/17 07:18 61 16 07/09/17 07:16 99 07/09/17 07:07 61 16 07/09/17 04:00 98.2 F 64 20 132/70 96 07/09/17 00:23 72 16 Weight Admit Weight 240 lb 3.2 oz Weight 234 lb I&O: 07/08/17 07/09/17 07/10/17 06:59 06:59 06:59 Intake Total 1440 540 Output Total 1925 350 Balance -485 190 Result Diagrams: 07/09/17 05:01 07/09/17 05:01 Additional Labs: Accuchecks 07/09/17 07/08/17 07/08/17 06:16 21:03 11:44 POC Glucose 171 H 179 H 126 H Phys Exam - Physical Examination HEENT: PERRLA, moist MMs Neck: no JVD, supple Respiratory: no wheezing, no rales Cardiovascular: RRR, no significant murmur Gastrointestinal: soft, no distention, positive bowel sounds abd wall edema++ Musculoskeletal: pulses present, edema present left bka Neurological: non-focal, moves all 4 limbs Psychiatric: A&O x 3 Dx/Plan (1) Acute respiratory failure with hypoxia Code(s): J96.01 - ACUTE RESPIRATORY FAILURE WITH HYPOXIA Status: Acute Comment: cont O2 (2) CHF (congestive heart failure) Code(s): I50.9 - HEART FAILURE, UNSPECIFIED Status: Acute Qualifiers: Congestive heart failure type: systolic Congestive heart failure chronicity : acute on chronic Qualified Code(s): I50.23 - Acute on chronic systolic ( congestive) heart failure Comment: EF 25% (3) HLD (hyperlipidemia) Code(s): E78.5 - HYPERLIPIDEMIA, UNSPECIFIED Status: Chronic Qualifiers: Hyperlipidemia type: unspecified Qualified Code(s): E78.5 - Hyperlipidemia , unspecified (4) CAD (coronary artery disease) Code(s): I25.10 - ATHSCL HEART DISEASE OF [place] CORONARY ARTERY W/O ANG PCTRS Status: Chronic Qualifiers: Coronary Disease-Associated Artery/Lesion type: [place] artery [place] vs. transplanted heart: [place] heart Associated angina: without angina Qualified Code(s): I25.10 - Atherosclerotic heart disease of [place] coronary artery without angina pectoris (5) COPD (chronic obstructive pulmonary disease) Status: Chronic Qualifiers: COPD type: chronic bronchitis (6) DM type 2 (diabetes mellitus, type 2) Status: Chronic Qualifiers: Diabetes mellitus complication status: with kidney complications Diabetes mellitus complication detail: with chronic kidney disease Diabetes mellitus mcc insulin use: with mcc use Chronic kidney disease stage: stage 3 (moderate) Qualified Code(s): E11.22 - Type 2 diabetes mellitus with diabetic chronic kidney disease; N18.3 - Chronic kidney disease, stage 3 ( moderate); N18.3 - Chronic kidney disease, stage 3 (moderate); Z79.4 - [facility] (current) use of insulin; 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; 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; Z79.4 - [facility] (current) use of insulin Comment: Resume Yovany, KIRSTY, serial accuchecks (7) Depression Code(s): F32.9 - MAJOR DEPRESSIVE DISORDER, SINGLE EPISODE, UNSPECIFIED Status : Chronic Qualifiers: Depression Type: unspecified Qualified Code(s): F32.9 - Major depressive disorder, single episode, unspecified (8) History of left below knee amputation Code(s): Z89.512 - ACQUIRED ABSENCE OF LEFT LEG BELOW KNEE Status: Chronic (9) PVD (peripheral vascular disease) Code(s): I73.9 - PERIPHERAL VASCULAR DISEASE, UNSPECIFIED Status: Chronic Comment: Supportive, continue ASA 81mg daily (10) UTI (urinary tract infection) Status: Acute Qualifiers: Urinary tract infection type: acute cystitis Hematuria presence: with hematuria Qualified Code(s): N30.01 - Acute cystitis with hematuria Comment: present on admit - Plan is on lasix 80iv q12h -: omnicef -: watch for renal function -: his stump is still swollen but better now, will try and see if his prosthes -: -is will fit now to ambulate. Has revoked hospice prior to hospitalization * . Review of Systems - Medications/Allergies Allergies/Adverse Reactions: Allergies Allergy/AdvReac Type Severity Reaction Status Date / Time No Known Allergies Allergy Verified 04/11/17 05:38 Medications: Current Medications Acetaminophen (Tylenol) 1,000 mg PO Q6H PRN PRN Reason: Headache/Fever or Mild Pain Hydrocodone Bitart/Acetaminophen ([place] 10/325) 1 tab PO Q6H PRN PRN Reason: Pain >3 Last Admin: 07/08/17 17:04 Dose: 1 tab Albuterol Sulfate (Proventil Hfa) 1 puff INH Q6H PRN PRN Reason: Dyspnea/Wheezing/SOB Albuterol/Ipratropium (Duoneb) 3 ml NEB [id number] [facility] Last Admin: 07/09/17 07:07 Dose: 3 ml Aspirin (Ecotrin) 81 mg PO DAILY [facility] Last Admin: 07/09/17 09:40 Dose: 81 mg Atorvastatin Calcium (Lipitor) 40 mg PO HS [facility] Last Admin: 07/08/17 21:25 Dose: 40 mg Carvedilol (Coreg) 6.25 mg PO BID [facility] Last Admin: 07/09/17 09:43 Dose: 6.25 mg Cefdinir (Omnicef) 300 mg PO BID [facility] Last Admin: 07/09/17 09:40 Dose: 300 mg Clonidine (Catapres) 0.1 mg PO Q4H PRN PRN Reason: Systolic BP > 180 Clopidogrel Bisulfate (Plavix) 37.5 mg PO DAILY [facility] Last Admin: 07/09/17 09:41 Dose: 37.5 mg Dextrose/Water (Dextrose 50%) 25 gm SLOW IVP PRN PRN PRN Reason: Hypoglycemia Famotidine (Pepcid) 20 mg PO BID [facility] Last Admin: 07/09/17 09:41 Dose: 20 mg Ferrous Sulfate (Feosol) 325 mg PO DAILY [facility] Last Admin: 07/09/17 09:42 Dose: 325 mg Furosemide (Lasix) 80 mg SLOW IVP 0600,1400 [facility] Last Admin: 07/09/17 05:37 Dose: 80 mg Gabapentin (Neurontin) 800 mg PO TID [facility] Last Admin: 07/09/17 09:42 Dose: 800 mg Glucagon (Glucagon) 1 mg IM PRN PRN PRN Reason: Hypoglycemia Guaifenesin/Dextromethorphan (Robitussin Dm) 15 ml PO Q4H PRN PRN Reason: Cough Last Admin: 07/08/17 03:05 Dose: 15 ml Hydralazine HCl (Apresoline) 10 mg SLOW IVP Q4H PRN PRN Reason: Systolic BP > 180 Dextrose/Water (D5w) 1,000 mls @ 0 mls/hr IV .Q0M PRN; As Directed PRN Reason: Hypoglycemia Insulin Detemir 5 units/ (Miscellaneous Medication) 0.05 mls @ 0 mls/hr SC DAILY YRIS PRN Reason: As Directed Last Admin: 07/09/17 09:42 Dose: 0.05 mls Insulin Human Lispro (Humalog) 0 units SC .MODERATE SLIDING SC PRN PRN Reason: Moderate Correctional Scale Last Admin: 07/06/17 06:22 Dose: 2 unit Insulin Human Lispro (Humalog) 0 units SC .BEDTIME SLIDING SC PRN PRN Reason: Bedtime Correctional Scale Last Admin: 07/07/17 20:49 Dose: 5 unit Mometasone Furoate/Formoterol Fumar (Dulera 200 Mcg/5 Mcg Inhaler) 2 puff INH BID-RT [facility] Last Admin: 07/09/17 07:18 Dose: 2 puff Ondansetron HCl (Zofran Odt) 4 mg PO Q6H PRN PRN Reason: Nausea/Vomiting Ondansetron HCl (Zofran) 4 mg IVP Q6H PRN PRN Reason: Nausea/Vomiting Pantoprazole Sodium (Protonix) 40 mg PO DAILY [facility] Last Admin: 07/09/17 09:42 Dose: 40 mg Sodium Chloride (Flush - Normal Saline) 10 ml IVF Q12HR [facility] Last Admin: 07/09/17 09:42 Dose: 10 ml Sodium Chloride (Flush - Normal Saline) 10 ml IVF PRN PRN PRN Reason: Saline Flush
--- NOTE | 2017-07-09 13:15 | PRG ---
DATE OF SERVICE: 07/09/2017 SUBJECTIVE: This morning, he is better, he is less short of breath. He is not ambulating because of his prostheses in his left side. PHYSICAL EXAMINATION: VITAL SIGNS: Blood pressure 130/67, temperature 98, satting 97% on 2 liters, respirations 18. CHEST: Decreased breath sounds, no wheezing. CARDIAC: Normal S1. ABDOMEN: Soft. No masses. LABORATORY: White count 3,000, hemoglobin and hematocrit 8 and 25, platelet count is low at 77. Cre atinine 1.8. IMPRESSION: Congestive heart failure, chronic obstructive pulmonary disease, renal failure, thromboc ytopenia, diastolic dysfunction, and peripheral vascular disease. PLAN: Continue p.o. antibiotics, neb treatments, supportive care, home when okay with Cardiology.
[2017-07-09] MEDS: Atorvastatin Calcium 40 MG TAB PO SCH (21:04)
[2017-07-10] MEDS: Furosemide 100 MG/10 ML VIAL SLOW IVP SCH (05:53)
[2017-07-10 06:12] LABS: Anion Gap 9 mmol/L (10-20); BUN (Urea Nitrogen) 34 mg/dL (8.4-25.7); Calc. Creatinine Clearance 74 mL/min (70-130); Calcium 8.5 mg/dL (7.8-10.44); Carbon Dioxide 33 mmol/L (22-29); Chloride 101 mmol/L (98-107); Estimated GFR-MDRD 43
[2017-07-10 06:14] LABS: #Eosinphils 0.1 thou/uL (0.0-0.7); #Lymphocytes 0.5 thou/uL (1.20-3.40); #Monocytes 0.5 thou/uL (0.11-0.59); #Neutrophils 3.2 thou/uL (1.40-6.50); %Basophils 0.2 % (0.0-1.0); %Eosinophils 2.2 % (0.0-10.0); %Lymphocytes 12.1 % (21.0-51.0); %Monocytes 10.8 % (0.0-10.0); Hematocrit 25.8 % (42.0-52.0); Mean Platelet Volume 8.8 fL (7.4-10.4); Red Blood Cell (RBC) Count 2.59 mill/uL (4.70-6.10); White Blood Cell (WBC) Count 4.3 thou/uL (4.8-10.8)
[2017-07-10] MEDS: Mometasone/Formoterol 120 PUFF INHALER INH SCH ×2 (07:08→18:49)
[2017-07-10] MEDS: Insulin Detemir 100 UNITS/ML 5 UNITS in Pre-Filled Syringe 1 EACH SC SCH (09:17)
[2017-07-10] MEDS: Aspirin 81 mg Enteric Coated Tablet PO SCH (09:17)
[2017-07-10] MEDS: Cefdinir 300 MG CAP PO SCH ×2 (09:18→20:38)
[2017-07-10] MEDS: Ferrous Sulfate 325 MG TAB PO SCH (09:18)
[2017-07-10] MEDS: Gabapentin 400 MG CAP PO SCH ×3 (09:18→20:39)
[2017-07-10] MEDS: Clopidogrel Bisulfate 75 MG TAB PO SCH (09:18)
[2017-07-10] MEDS: Famotidine 20 MG TAB PO SCH ×2 (09:18→20:40)
[2017-07-10] MEDS: Furosemide 40 MG TAB PO SCH ×2 (09:19→14:09)
[2017-07-10] MEDS: Carvedilol 6.25 MG TAB PO SCH ×2 (09:19→20:38)
--- NOTE | 2017-07-10 09:32 | PDOC.PN ---
- Subjective Encounter Start Date: 07/10/17 Encounter Start Time: 07:45 Subjective: no sob, feels better -: still has swelling/edema over his abd and thighs - Objective Resuscitation Status: Resuscitation Status FULL:Full Resuscitation MAR Reviewed: Yes Vital Signs & Weight: Vital Signs (12 hours) Temp Pulse Resp BP BP Pulse Ox 07/10/17 09:19 132/67 07/10/17 08:00 98.3 F 65 17 126/63 95 07/10/17 07:08 62 16 07/10/17 06:58 98 07/10/17 06:55 62 16 07/10/17 04:00 97.9 F 64 20 118/61 95 07/09/17 23:46 67 20 100 Weight Admit Weight 240 lb 3.2 oz Weight 235 lb I&O: 07/09/17 07/10/17 07/11/17 06:59 06:59 06:59 Intake Total 540 1430 Output Total 350 1825 Balance 190 -395 Result Diagrams: 07/10/17 05:52 07/10/17 05:52 Additional Labs: Accuchecks 07/10/17 07/09/17 07/09/17 05:19 20:14 16:56 POC Glucose 142 H 146 H 161 H 07/09/17 07/08/17 11:15 16:52 POC Glucose 177 H 137 H Phys Exam - Physical Examination HEENT: PERRLA, moist MMs Neck: no JVD, supple Respiratory: no wheezing, no rales Cardiovascular: RRR, no significant murmur Gastrointestinal: soft, positive bowel sounds abd wall edema Musculoskeletal: pulses present, edema present Neurological: non-focal, moves all 4 limbs Psychiatric: A&O x 3 Dx/Plan (1) Acute respiratory failure with hypoxia Code(s): J96.01 - ACUTE RESPIRATORY FAILURE WITH HYPOXIA Status: Resolved Comment: cont O2 (2) CHF (congestive heart failure) Code(s): I50.9 - HEART FAILURE, UNSPECIFIED Status: Acute Qualifiers: Congestive heart failure type: systolic Congestive heart failure chronicity : acute on chronic Qualified Code(s): I50.23 - Acute on chronic systolic ( congestive) heart failure Comment: EF 25% (3) HLD (hyperlipidemia) Code(s): E78.5 - HYPERLIPIDEMIA, UNSPECIFIED Status: Chronic Qualifiers: Hyperlipidemia type: unspecified Qualified Code(s): E78.5 - Hyperlipidemia , unspecified (4) CAD (coronary artery disease) Code(s): I25.10 - ATHSCL HEART DISEASE OF [place] CORONARY ARTERY W/O ANG PCTRS Status: Chronic Qualifiers: Coronary Disease-Associated Artery/Lesion type: [place] artery [place] vs. 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 Chronic kidney disease stage: stage 3 (moderate) Qualified Code(s): E11.22 - Type 2 diabetes mellitus with diabetic chronic kidney disease; N18.3 - Chronic kidney disease, stage 3 ( moderate); N18.3 - Chronic kidney disease, stage 3 (moderate); Z79.4 - longterm (current) use of insulin; Z79.4 - terminologist (current) use of insulin; Z79.4 - longterm (current) use of insulin; Z79.4 - longterm (current) use of insulin Comment: KIRSTY Copeland, serial accuchecks (7) Depression Code(s): F32.9 - MAJOR DEPRESSIVE DISORDER, SINGLE EPISODE, UNSPECIFIED Status : Chronic Qualifiers: Depression Type: unspecified Qualified Code(s): F32.9 - Major depressive disorder, single episode, unspecified (8) History of left below knee amputation Code(s): Z89.512 - ACQUIRED ABSENCE OF LEFT LEG BELOW KNEE Status: Chronic (9) PVD (peripheral vascular disease) Code(s): I73.9 - PERIPHERAL VASCULAR DISEASE, UNSPECIFIED Status: Chronic Comment: Supportive, continue ASA 81mg daily (10) UTI (urinary tract infection) Status: Acute Qualifiers: Urinary tract infection type: acute cystitis Hematuria presence: with hematuria Qualified Code(s): N30.01 - Acute cystitis with hematuria Comment: present on admit - Plan oral lasix, slow raise in his renal function # -: has anasarca centered around abd and thighs -: hopefully his prosthesis will fit now to amb with receding edema -: was in hospice prior to this hosp -: oral iron, high prt diet with alb of 2.8 * . Review of Systems - Medications/Allergies Allergies/Adverse Reactions: Allergies Allergy/AdvReac Type Severity Reaction Status Date / Time No Known Allergies Allergy Verified 04/11/17 05:38 Medications: Current Medications Acetaminophen (Tylenol) 1,000 mg PO Q6H PRN PRN Reason: Headache/Fever or Mild Pain Hydrocodone Bitart/Acetaminophen ([place] 10/325) 1 tab PO Q6H PRN PRN Reason: Pain >3 Last Admin: 07/08/17 17:04 Dose: 1 tab Albuterol Sulfate (Proventil Hfa) 1 puff INH Q6H PRN PRN Reason: Dyspnea/Wheezing/SOB Albuterol/Ipratropium (Duoneb) 3 ml NEB [id number] [facility] Last Admin: 07/10/17 06:55 Dose: 3 ml Aspirin (Ecotrin) 81 mg PO DAILY [facility] Last Admin: 07/10/17 09:17 Dose: 81 mg Atorvastatin Calcium (Lipitor) 40 mg PO HS [facility] Last Admin: 07/09/17 21:04 Dose: 40 mg Carvedilol (Coreg) 6.25 mg PO BID [facility] Last Admin: 07/10/17 09:19 Dose: 6.25 mg Cefdinir (Omnicef) 300 mg PO BID [facility] Last Admin: 07/10/17 09:18 Dose: 300 mg Clonidine (Catapres) 0.1 mg PO Q4H PRN PRN Reason: Systolic BP > 180 Clopidogrel Bisulfate (Plavix) 37.5 mg PO DAILY [facility] Last Admin: 07/10/17 09:18 Dose: 37.5 mg Dextrose/Water (Dextrose 50%) 25 gm SLOW IVP PRN PRN PRN Reason: Hypoglycemia Famotidine (Pepcid) 20 mg PO BID [facility] Last Admin: 07/10/17 09:18 Dose: 20 mg Ferrous Sulfate (Feosol) 325 mg PO DAILY [facility] Last Admin: 07/10/17 09:18 Dose: 325 mg Furosemide (Lasix) 40 mg PO 0900,1400 [facility] Last Admin: 07/10/17 09:19 Dose: 40 mg Gabapentin (Neurontin) 800 mg PO TID [facility] Last Admin: 07/10/17 09:18 Dose: 800 mg Glucagon (Glucagon) 1 mg IM PRN PRN PRN Reason: Hypoglycemia Guaifenesin/Dextromethorphan (Robitussin Dm) 15 ml PO Q4H PRN PRN Reason: Cough Last Admin: 07/08/17 03:05 Dose: 15 ml Hydralazine HCl (Apresoline) 10 mg SLOW IVP Q4H PRN PRN Reason: Systolic BP > 180 Dextrose/Water (D5w) 1,000 mls @ 0 mls/hr IV .Q0M PRN; As Directed PRN Reason: Hypoglycemia Insulin Detemir 5 units/ (Miscellaneous Medication) 0.05 mls @ 0 mls/hr SC DAILY YRIS PRN Reason: As Directed Last Admin: 07/10/17 09:17 Dose: 0.05 mls Insulin Human Lispro (Humalog) 0 units SC .MODERATE SLIDING SC PRN PRN Reason: Moderate Correctional Scale Last Admin: 07/06/17 06:22 Dose: 2 unit Insulin Human Lispro (Humalog) 0 units SC .BEDTIME SLIDING SC PRN PRN Reason: Bedtime Correctional Scale Last Admin: 07/07/17 20:49 Dose: 5 unit Mometasone Furoate/Formoterol Fumar (Dulera 200 Mcg/5 Mcg Inhaler) 2 puff INH BID-RT [facility] Last Admin: 07/10/17 07:08 Dose: 2 puff Ondansetron HCl (Zofran Odt) 4 mg PO Q6H PRN PRN Reason: Nausea/Vomiting Ondansetron HCl (Zofran) 4 mg IVP Q6H PRN PRN Reason: Nausea/Vomiting Pantoprazole Sodium (Protonix) 40 mg PO DAILY [facility] Last Admin: 07/10/17 09:18 Dose: 40 mg Sodium Chloride (Flush - Normal Saline) 10 ml IVF Q12HR [facility] Last Admin: 07/10/17 09:19 Dose: 10 ml Sodium Chloride (Flush - Normal Saline) 10 ml IVF PRN PRN PRN Reason: Saline Flush
--- NOTE | 2017-07-10 14:45 | PRG ---
DATE OF SERVICE: 07/10/2017 SUBJECTIVE: Mr. Usman Hein is better, still not walking because of his prosthetic leg. OBJECTIVE: VITAL SIGNS: Blood pressure 132/67, temperature 98, respirations 18. CHEST: No wheezing, some rhonchi. CARDIAC: Normal S1, S2. No gallops ABDOMEN: Soft, no masses. LABORATORY DATA: Creatinine 1.6, glucose 142. White count 4000. IMPRESSION: 1. Congestive heart failure. 2. Chronic obstructive pulmonary disease. 3. Bronchitis. 4. Renal failure. 5. Diabetes. PLAN: Disposition as per primary care physician. Continue PT, nebs, supportive care.
[2017-07-10] MEDS: Guaifenesin DM 100-10/5 ML UDCUP PO PRN (15:22)
[2017-07-10] MEDS: Atorvastatin Calcium 40 MG TAB PO SCH (20:38)
[2017-07-11 05:46] LABS: Anion Gap 11 mmol/L (10-20); BUN (Urea Nitrogen) 38 mg/dL (8.4-25.7); Calc. Creatinine Clearance 80 mL/min (70-130); Calcium 8.7 mg/dL (7.8-10.44); Carbon Dioxide 30 mmol/L (22-29); Chloride 101 mmol/L (98-107); Estimated GFR-MDRD 47
[2017-07-11 06:46] VITALS: BMI 33.8
[2017-07-11] MEDS: Mometasone/Formoterol 120 PUFF INHALER INH SCH ×2 (07:19→19:31)
[2017-07-11] MEDS: HumaLOG 300 UNITS/3 ML VIAL SC PRN (08:51)
[2017-07-11] MEDS: Insulin Detemir 100 UNITS/ML 5 UNITS in Pre-Filled Syringe 1 EACH SC SCH (08:53)
[2017-07-11] MEDS: Clopidogrel Bisulfate 75 MG TAB PO SCH (08:53)
[2017-07-11] MEDS: Cefdinir 300 MG CAP PO SCH (08:53)
[2017-07-11] MEDS: Ferrous Sulfate 325 MG TAB PO SCH (08:54)
[2017-07-11] MEDS: Furosemide 40 MG TAB PO SCH ×2 (08:54→14:59)
[2017-07-11] MEDS: Gabapentin 400 MG CAP PO SCH ×2 (08:54→14:59)
[2017-07-11] MEDS: Aspirin 81 mg Enteric Coated Tablet PO SCH (08:55)
[2017-07-11] MEDS: Carvedilol 6.25 MG TAB PO SCH (08:55)
[2017-07-11] MEDS: Famotidine 20 MG TAB PO SCH (10:15)
--- NOTE | 2017-07-11 10:48 | PDOC.PN ---
- Subjective Encounter Start Date: 07/11/17 Encounter Start Time: 08:40 Subjective: feels better, no sob - Objective Resuscitation Status: Resuscitation Status FULL:Full Resuscitation MAR Reviewed: Yes Vital Signs & Weight: Vital Signs (12 hours) Temp Pulse Resp BP BP Pulse Ox 07/11/17 08:55 115/65 07/11/17 07:55 98.9 F 64 18 115/65 97 07/11/17 07:20 99 07/11/17 07:19 59 L 16 99 07/11/17 04:00 98.0 F 59 L 20 111/56 L 96 07/11/17 00:11 64 12 Weight Admit Weight 240 lb 3.2 oz Weight 235 lb 11.2 oz I&O: 07/10/17 07/11/17 07/12/17 06:59 06:59 06:59 Intake Total 1430 1680 Output Total 1825 2545 Balance -741 -3974 Result Diagrams: 07/10/17 05:52 07/11/17 04:52 Additional Labs: Accuchecks 07/11/17 07/10/17 07/10/17 06:09 20:26 17:20 POC Glucose 175 H 123 H 121 H 07/10/17 11:07 POC Glucose 128 H Phys Exam - Physical Examination HEENT: PERRLA, moist MMs Neck: no JVD, supple Respiratory: no wheezing, no rales Cardiovascular: RRR, no significant murmur Gastrointestinal: soft, positive bowel sounds has abd wall edema Musculoskeletal: pulses present, edema present left bka Neurological: non-focal, moves all 4 limbs Psychiatric: A&O x 3 Dx/Plan (1) Acute respiratory failure with hypoxia Code(s): J96.01 - ACUTE RESPIRATORY FAILURE WITH HYPOXIA Status: Resolved Comment: cont O2 (2) CHF (congestive heart failure) Code(s): I50.9 - HEART FAILURE, UNSPECIFIED Status: Acute Qualifiers: Congestive heart failure type: systolic Congestive heart failure chronicity : acute on chronic Qualified Code(s): I50.23 - Acute on chronic systolic ( congestive) heart failure Comment: EF 25% (3) HLD (hyperlipidemia) Code(s): E78.5 - HYPERLIPIDEMIA, UNSPECIFIED Status: Chronic Qualifiers: Hyperlipidemia type: unspecified Qualified Code(s): E78.5 - Hyperlipidemia , unspecified (4) CAD (coronary artery disease) Code(s): I25.10 - ATHSCL HEART DISEASE OF [place] CORONARY ARTERY W/O ANG PCTRS Status: Chronic Qualifiers: Coronary Disease-Associated Artery/Lesion type: [place] artery [place] vs. transplanted heart: [place] heart Associated angina: without angina Qualified Code(s): I25.10 - Atherosclerotic heart disease of [place] coronary artery without angina pectoris (5) COPD (chronic obstructive pulmonary disease) Status: Chronic Qualifiers: COPD type: chronic bronchitis (6) DM type 2 (diabetes mellitus, type 2) Status: Chronic Qualifiers: Diabetes mellitus complication status: with kidney complications Diabetes mellitus complication detail: with chronic kidney disease Diabetes mellitus residential insulin use: with residential use Chronic kidney disease stage: stage 3 (moderate) Qualified Code(s): E11.22 - Type 2 diabetes mellitus with diabetic chronic kidney disease; N18.3 - Chronic kidney disease, stage 3 ( moderate); N18.3 - Chronic kidney disease, stage 3 (moderate); Z79.4 - FDC (current) use of insulin; Z79.4 - FDC (current) use of insulin; Z79.4 - FDC (current) use of insulin; Z79.4 - FDC (current) use of insulin Comment: Resume Yovany, KIRSTY, serial accuchecks (7) Depression Code(s): F32.9 - MAJOR DEPRESSIVE DISORDER, SINGLE EPISODE, UNSPECIFIED Status : Chronic Qualifiers: Depression Type: unspecified Qualified Code(s): F32.9 - Major depressive disorder, single episode, unspecified (8) History of left below knee amputation Code(s): Z89.512 - ACQUIRED ABSENCE OF LEFT LEG BELOW KNEE Status: Chronic (9) PVD (peripheral vascular disease) Code(s): I73.9 - PERIPHERAL VASCULAR DISEASE, UNSPECIFIED Status: Chronic Comment: Supportive, continue ASA 81mg daily (10) UTI (urinary tract infection) Status: Acute Qualifiers: Urinary tract infection type: acute cystitis Hematuria presence: with hematuria Qualified Code(s): N30.01 - Acute cystitis with hematuria Comment: present on admit (11) Protein-calorie malnutrition, moderate Code(s): E44.0 - MODERATE PROTEIN-CALORIE MALNUTRITION Status: Chronic - Plan has anasarca which is multifactorial including low protein, ckd and chf -: is on oral lasix, will need slow diuresis to avoid dg -: dc pt home with HH, OT and PT -: to f/u with Dr.Scott Tapia for bladder train and remove lawrence * .
--- NOTE | 2017-07-11 14:22 | PRG ---
DATE OF SERVICE: 07/11/2017 SERVICE: Pulmonary Medicine. INTERVAL HISTORY: The patient is doing great from a respiratory standpoint. He denies any current c hest pain, shortness of breath. He is on room air, presently. Otherwise, there have been no events. PHYSICAL EXAMINATION: VITAL SIGNS: Afebrile, pulse 67, blood pressure 108/55, respirations 16, saturation 89% on room air. GENERAL: Patient is awake, alert, in no apparent distress. LUNGS: Excellent air entry with no prolonged expiratory phase, wheezing, rhonchi or crackles. HEART: Normal rate, regular. ABDOMEN: Soft, nontender, nondistended. Bowel sounds positive. MUSCULOSKELETAL: No cyanosis or clubbing. I saw 2+ pitting edema of the sacrum. The right lower ex tremity below the knee has resolved. LABORATORY DATA: Creatinine 1.54, which is basically at baseline. Basic metabolic profile is otherw ise unremarkable with bicarbonate of 30. Urine culture is growing Proteus mirabilis, which is pansen sitive. One out of two blood cultures is growing coag negative staph. ASSESSMENT: 1. Acute on chronic systolic and diastolic heart failure. 2. Acute hypoxic respiratory failure, resolved. 3. Urinary tract infection. 4. Peripheral vascular disease, severe. PLAN: From a purely respiratory perspective, there is nothing sounding in the way of the patient dis charging from the hospital. He has no further requirements for inpatient Pulmonary or Critical Care opinion. As such, we will sign off. Please call with additional questions or concerns ca saldaña
[2017-07-11 16:29] VITALS: BP 134/61; TEMP 97.7
--- NOTE | 2017-07-11 20:30 | DIS ---
DATE OF ADMISSION: 07/05/2017 DATE OF DISCHARGE: 07/11/2017 DISCHARGE DISPOSITION: To home. PRIMARY DISCHARGE DIAGNOSES: Acute on chronic congestive heart failure exacerbation with systolic dysfunction, acute respiratory failure with hypoxia secondary to volume overload. SECONDARY DISCHARGE DIAGNOSES: Anasarca with hypoalbuminemia and moderate protein malnutrition; chronic obstructive pulmonary disease; diabetes mellitus, type 2; coronary artery disease; dyslipidemia; depression; history of left BKA; peripheral vascular disease; urinary tract infection. PROCEDURES DONE DURING HOSPITALIZATION: The patient has had chest x-ray done on the day of admission, mild pulmonary vascular congestion was seen. Discharge H&H are 7.8 and 25.8, platelet count of 85, white count of 4.3, MCV is 99. Discharge BUN and creatinine are 38 and 1.54. B12 was 399, folic acid 11.20, albumin is 2.8. BNP was 1174. Urine culture grew Proteus mirabilis resistant to nitrofurantoin, but sensitive to all other antibiotics. INPATIENT CONSULTS: Dr. Ritter for Pulmonology. DISCHARGE MEDICATIONS: Albuterol inhaler q.6 hourly p.r.n., aspirin 81 mg p.o. daily, atorvastatin 40 mg p.o. at bedtime, Coreg 6.25 mg p.o. twice daily, Omnicef 300 mg p.o. twice daily for another 4 days, Lasix 40 mg p.o. twice daily , ferrous sulfate 325 mg p.o. daily, gabapentin 800 mg p.o. 3 times daily, Levemir 5 units subcutaneous 3 times daily, Imdur 15 mg p.o. daily extended release, potassium chloride 20 mEq p.o. daily, sertraline 50 mg p.o. at bedtime , ranitidine 150 mg p.o. 3 times daily, Flomax 0.4 mg extended release daily. ALLERGIES: No known drug allergies. DISCHARGE PLAN: The patient to follow up with his primary care physician in 1 week. BRIEF COURSE DURING HOSPITALIZATION: The patient initially got admitted on for complaints of shortness of breath and chest pain. The patient was in hospice prior to arrival, but he apparently revoked that. He has had known history of CHF with ejection fraction of around 25% with anasarca and multiple medical issues. He was suspected to have sepsis initially with UA being positive for urinary tract infection. He was placed on broad spectrum antibiotics and has been transitioned to Omnicef at the time of discharge. The patient has known history of CKD and had volume overload as well. He has had gentle diuresis done. He still has anasarca, which is centered around his abdomen and lower extremities. His albumin is also low at around 2.8. He is not being able to ambulate and wear his prosthesis due to edema of the stump. In view of his chronic kidney disease getting worse with diuresis, he was switched over to p.o. Lasix. His overall prognosis is poor. He would like to go home with home health. The patient does not want to see his urologist and instead wants his Lawrence catheter removed. We will bladder train him and remove it today prior to discharge. The patient will be at high risk for readmission given his multiple medical issues and anasarca, which needs chronic Lasix therapy plus improvement in his albumin and total protein numbers to get ahold of it. The patient's overall ejection fraction is also 25%. Please see a face- to -face documentation on [facility] for the day of discharge. Addendum: he failed voiding trial with residual volume of nearly 600ml and had his lawrence placed back. has been adviced to f/u with urology in 2 weeks for lawrence removal. He wants to see a new urologist and will make outpt appointment for the same. SOSA
== END 2017-07-11 20:03 | disposition home health service (06) | DRG 698 ==
LOC: ERS 15:20 → IMCU/EMU 18:06 → 2NO 07-07 00:18
PROVIDERS: ADMIT Family Medicine; ATTEND Family Medicine
DX: T83.511A Infection and inflammatory reaction due to indwelling urethral catheter, initial encounter (principal); A41.9 Sepsis, unspecified organism; J96.01 Acute respiratory failure with hypoxia; I50.23 Acute on chronic systolic (congestive) heart failure; N17.9 Acute kidney failure, unspecified; D61.818 Other pancytopenia; E44.0 Moderate protein-calorie malnutrition; I13.0 Hypertensive heart and chronic kidney disease with heart failure and stage 1 through stage 4 chronic kidney disease, or unspecified chronic kidney disease; N30.00 Acute cystitis without hematuria; E11.21 Type 2 diabetes mellitus with diabetic nephropathy; D69.6 Thrombocytopenia, unspecified; E11.22 Type 2 diabetes mellitus with diabetic chronic kidney disease; E11.51 Type 2 diabetes mellitus with diabetic peripheral angiopathy without gangrene; J44.9 Chronic obstructive pulmonary disease, unspecified; D53.9 Nutritional anemia, unspecified; I25.5 Ischemic cardiomyopathy; Z95.810 Presence of automatic (implantable) cardiac defibrillator; Z95.1 Presence of aortocoronary bypass graft; Z95.5 Presence of coronary angioplasty implant and graft; Z89.512 Acquired absence of left leg below knee; F17.210 Nicotine dependence, cigarettes, uncomplicated; N18.2 Chronic kidney disease, stage 2 (mild); I25.10 Atherosclerotic heart disease of native coronary artery without angina pectoris; E78.5 Hyperlipidemia, unspecified; F32.9 Major depressive disorder, single episode, unspecified; E88.09 Other disorders of plasma-protein metabolism, not elsewhere classified; Z79.4 Long term (current) use of insulin; B96.4 Proteus (mirabilis) (morganii) as the cause of diseases classified elsewhere; Y84.6 Urinary catheterization as the cause of abnormal reaction of the patient, or of later complication, without mention of misadventure at the time of the procedure
CPT/HCPCS: 36415; 36416; 71010; 80048; 80053; 80202; 81003; 81015; 82553; 82607; 82728; 82746; 83540; 83605; 83880; 84484; 85007; 85025; 85027; 85046; 87040; 87077; 87086; 87149; 87186; 93005; 94640; 94760; 96365; 96367; A4216; G8978-GP-CL; G8979-GP-CI; G8987-GO-CK; G8988-GO-CI; J0696; J1815; J1940; J1956; J2543; J3370; J7050; J7620

== ENCOUNTER 2018-09-23 12:09 | Observation (INO) | payer MEDICARE, OTHER ==
--- NOTE | 2018-09-23 14:13 | RAD ---
CHEST 2 VIEWS: Date: 09/23/18 INDICATION: Chest pain. COMPARISON: Prior exam dated 01/02/08 and 07/05/17. FINDINGS: AICD and midline sternotomy changes are stable. There is mild cardiomegaly. There is mild pulmonary v ascular congestion with tiny bilateral pleural effusions. ACDF is again seen involving the lower cerv ical spine. Multilevel spondylosis seen involving the thoracic spine. IMPRESSION: Findings suspicious for mild CHF. POS: [facility]
[2018-09-23 14:47] LABS: #Eosinphils 0.2 thou/uL (0.0-0.7); #Monocytes 0.5 thou/uL (0.11-0.59); #Neutrophils 3.7 thou/uL (1.40-6.50); %Basophils 0.2 % (0.0-1.0); %Eosinophils 3.8 % (0.0-10.0); %Lymphocytes 18.5 % (21.0-51.0); %Neutrophils 68.5 % (42.0-75.0); Hemoglobin 12.9 g/dL (14.0-18.0); Mean Corpuscular HGB CONC 33.7 g/dL (32.0-36.0); Mean Corpuscular Hemoglobin 31.3 pg (27.0-31.0); Mean Platelet Volume 8.6 fL (7.4-10.4); Platelet Count 94 thou/uL (130-400); RBC Distribution Width 13.2 % (11.5-14.5); Red Blood Cell (RBC) Count 4.13 mill/uL (4.70-6.10); White Blood Cell (WBC) Count 5.3 thou/uL (4.8-10.8)
[2018-09-23 15:04] LABS: ALT (SGPT) 16 U/L (8-55); AST (SGOT) 21 U/L (5-34); Albumin 3.2 g/dL (3.5-5.0); Alkaline Phosphatase 173 U/L (40-150); Anion Gap 11 mmol/L (10-20); BUN (Urea Nitrogen) 26 mg/dL (8.4-25.7); Bilirubin, Total 0.4 mg/dL (0.2-1.2); Calc. Creatinine Clearance 0 mL/min (70-130); Calcium 8.5 mg/dL (7.8-10.44); Carbon Dioxide 20 mmol/L (22-29); Chloride 113 mmol/L (98-107); Estimated GFR-MDRD Greater than 90; Globulin 3.3 g/dL (2.4-3.5); Glucose 106 mg/dL (70-105); Potassium 4.1 mmol/L (3.5-5.1); Protein, Total 6.5 g/dL (6.0-8.3); Sodium 140 mmol/L (136-145)
[2018-09-23 15:26] LABS: CKMB 4.8 ng/mL (0-6.6)
[2018-09-23 15:55] LABS: Bilirubin Negative (Negative); Blood, Urine Trace (Negative); Clarity CLEAR (Clear); Glucose, Urine (Dipstick) Negative (Negative); Leukocyte Negative (Negative); Nitrite Negative (Negative); Protein, Urine (Dipstick) 300 mg/dL (Neg-Trace); Specific Gravity, Urine 1.021 (1.002-1.036); pH, Urine 5.5 (5.0-9.0)
[2018-09-23 15:57] LABS: Bacteria/HPF None Seen HPF (None Seen); Hyaline Casts/LPF 4-6 HYALINE CAST LPF (0-3 Hyaline); Pathc Cast-AUWi Flag 0.58 (0-2.49); RBC/HPF 0-3 HPF (0-3); Squamous Epithelial 0-3 HPF (0-3); WBC/HPF 0-3 HPF (0-3)
[2018-09-23] MEDS ORDERED: Aspirin Chewable 81 MG TAB ONE (16:00)
[2018-09-23 17:14] LABS: Troponin I 0.046 ng/mL (< 0.028)
[2018-09-23 20:13] LABS: Troponin I 0.042 ng/mL (< 0.028)
[2018-09-23] MEDS ORDERED: Dextrose 5% in Water 1,000 ML IV PRN (20:40)
[2018-09-23] MEDS ORDERED: Ondansetron PF 4 MG/2 ML Vial IVP PRN (20:40)
[2018-09-23] MEDS ORDERED: HumaLOG 300 UNITS/3 ML VIAL SC PRN ×2 (20:40)
[2018-09-23] MEDS ORDERED: hydrALAZINE 20 MG/ML VIAL SLOW IVP PRN (20:40)
[2018-09-23] MEDS ORDERED: Ondansetron ODT 4 MG TAB PO PRN (20:40)
[2018-09-23] MEDS ORDERED: Dextrose 50% Abboject 50 ML SYRINGE SLOW IVP PRN (20:40)
[2018-09-23 20:51] VITALS: BMI 25.0
[2018-09-23] MEDS ORDERED: Furosemide 40 MG/4 ML VIAL SLOW IVP SCH (21:00)
[2018-09-23] MEDS: Atorvastatin Calcium 40 MG TAB PO SCH (21:11)
[2018-09-23] MEDS: Famotidine 20 MG TAB PO SCH (21:12)
[2018-09-23] MEDS: Acetaminophen 500 MG TAB PO PRN (21:12)
--- NOTE | 2018-09-24 01:36 | HP ---
PRIMARY CARE PROVIDER: Dr. Morales. CHIEF COMPLAINT: Fall and weakness. HISTORY OF PRESENT ILLNESS: This is a 58-year-old male who presents to [facility] Emergency Department complaining of a fall in his bathroom, striking the toilet with his left rib cage. The patient states he pulled his sock on to his leg when his prosthetic leg gave away. The patient noted pain in his rib cage and back region and states he has had increasing weakness over the last several days. The patient admits to some increased shortness of breath, dry cough without specific fever or chills. The patient states he has been compliant with his medication regimen, but has not followed up with his primary speech pathology teacher at [facility] in over a year. The patient denied any specific increased lower extremity swelling of his right leg, but does admit to lying propped up on 2 pillows at night. The patient does state he takes Lasix 20 mg twice daily and denies any specific dietary indiscretion. The patient admits to some increasing weakness as stated previously as well as some right-sided weakness, which has been chronic after a stroke that he sustained several years prior. The patient does admit that he has had some difficulty engaging his prosthetic leg for ambulation and this was what led to him falling in his bathroom. In the emergency room, patient underwent general evaluation including chest imaging showing pulmonary vascular prominence. The patient was also noted with elevated troponin I, which is chronic. The patient received bronchodilator therapy in the emergency room and was referred to the hospitalist service for evaluation. PAST MEDICAL HISTORY: 1. Ischemic cardiomyopathy with ejection fraction of 25% to 30%. 2. Coronary artery disease, status post cardiac stent placement in 2017. 3. 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 4. Peripheral vascular disease. 5. Dyslipidemia. 6. Chronic obstructive pulmonary disease. 7. Marijuana abuse. 8. Chronic kidney disease stage 2. PAST SURGICAL HISTORY: 1. Status post 5 vessel coronary artery bypass grafting. 2. Status post cardiac stent placement x3, 02/2017. 3. Status post left [id number]-[id number]-[id number] amputation. 4. Status post amputation of several toes of the right foot. 5. Status post lumbar spine surgery. 6. Status post right rotator cuff repair. 7. Status post AICD placement. CURRENT MEDICATIONS: 1. Albuterol sulfate 90 mcg 2 puffs inhaled q.6 hours p.r.n. 2. Anoro Ellipta 1 puff inhaled daily. 3. Aspirin 81 mg p.o. daily. 4. Lipitor 40 mg p.o. at bedtime. 5. Carvedilol 6.25 mg p.o. b.i.d. 6. Plavix 37.5 mg p.o. daily. 7. Ferrous sulfate 325 mg p.o. daily. 8. Gabapentin 800 mg p.o. t.i.d. 9. Glargine insulin t.i.d. 10. DuoNebs t.i.d. p.r.n. 11. Isosorbide mononitrate 15 mg p.o. daily. 12. Lasix 20 mg p.o. b.i.d. 13. Nitroglycerin 0.4 mg sublingually q.5 minutes p.r.n. chest pain. 14. Potassium chloride 20 mEq p.o. daily. 15. Sertraline 50 mg p.o. at bedtime. 16. Tamsulosin 0.4 mg p.o. daily. 17. List will need to be confirmed with the patient for accuracy. ALLERGIES: NO KNOWN DRUG ALLERGIES. FAMILY HISTORY: Mother alive and well at 75 years of age. SOCIAL HISTORY: The patient resides in [place], [place]. Smokes up to half a pack of cigarettes daily. Daily marijuana use. Ambulates with the use of a left hytmz-thb-[id number] prosthesis. Occasional alcohol use. REVIEW OF SYSTEMS: CONSTITUTIONAL: Negative for weight loss or gain, ability to conduct usual activities. SKIN: Negative for rash, itching. EYES: Negative for double vision, pain. ENT/MOUTH: Negative for nose bleeding, neck stiffness, pain, tenderness. CARDIOVASCULAR: Negative for palpitations, dyspnea on exertion, orthopnea. RESPIRATORY: Negative for shortness of breath, wheezing, cough, hemoptysis, fever or night sweats. GASTROINTESTINAL: Negative for poor appetite, abdominal pain, heartburn, nausea, vomiting, constipation, or diarrhea. GENITOURINARY: Negative for urgency, frequency, dysuria, nocturia. MUSCULOSKELETAL: Negative for pain, swelling. NEUROLOGIC/PSYCHIATRIC: Negative for anxiety, depression. ALLERGY/IMMUNOLOGIC: Negative for skin rash, bleeding tendency. Otherwise negative except as stated per HPI. PHYSICAL EXAMINATION: VITAL SIGNS: On admission, blood pressure 135/91, pulse 60, respiratory rate 21, temperature is 98.2 degrees Fahrenheit, O2 saturation 98% on room air. GENERAL APPEARANCE: This is a 58-year-old male, alert and oriented x3, pleasant, conversant, in no acute distress. HEENT: Pupils are equal, round and reactive to light and accommodation. Extraocular muscles are intact. No scleral icterus. No conjunctival injection. Nares patent. OP is clear. Teeth in fair repair. NECK: Supple. No cervical adenopathy. No thyromegaly. No carotid bruits. No JVD appreciated. Cervical spine full active and passive range of motion. No meningeal signs noted. CHEST: Coarse crackles to bibasilar segments. CARDIOVASCULAR: Distant heart sounds. S1, S2 without detectable murmur. ABDOMEN: Obese, soft, nontender, and nondistended. Bowel sounds are positive in all 4 quadrants. No hepatosplenomegaly. No abdominal bruits. No rebound or guarding appreciated. EXTREMITIES: Left vgofk-ycf-mcju amputation with stump intact. Right lower extremity with mild edema to the mid waldrop. Pulses palpable in the right lower extremity of the dorsalis pedis, posterior tibial arteries. NEUROLOGIC: Cranial nerves 2 through 12 are grossly intact. Right upper extremity weakness with some contracture noted in the right hand, chronic. Not observed ambulatory during this exam. PERTINENT LAB AND X-RAY FINDINGS: Sodium 140, potassium 4.1, chloride 113, CO2 of 20, BUN 26, creatinine 0.86, estimated GFR greater than 90, glucose 106, calcium 8.5. LFTs within normal limits. Troponin I ranged between 0.040 to 0.046. BNP 242, previously noted 1175 on 07/05/2017. CBC showed a white blood cell count of 5.3, hemoglobin 13, hematocrit 38, and platelet count 94, with normal differential. IMAGING: Portable chest x-ray dated 09/23/2018 showed a pulmonary vascular prominence with cardiomegaly. AICD in place. Telemetry monitoring shows sinus mechanism. ASSESSMENT AND PLAN: 1. Chest wall pain status post blunt trauma. The patient will be observed on the telemetry unit. Continue symptomatic and supportive management. No evidence to suggest acute coronary syndrome. 2. Chronic systolic congestive heart failure with ejection fraction of 25-30 percent. Question of decompensated congestive heart failure. Start Lasix 40 mg IV b.i.d. Monitor daily weights and I's and O's. Check 2D transthoracic echocardiogram for comparison of ejection fraction from previous study dated 04/11/2017. 3. Coronary artery disease, chronic and stable. Resume home regimen to include dual antiplatelet therapy with aspirin and Plavix. Continue telemetry monitoring. Resume Lipitor 40 mg p.o. at bedtime. 4. Diabetes mellitus type 2. Questionable control. Check A1c level in the a.m. Insulin sliding scale for reflexive coverage. ADA diet. 5. Marijuana abuse. We will offer smoking cessation resources prior to discharge. 6. Mechanical fall. Obtain PT/OT evaluation in the a.m. General fall risk precautions. 7. Prophylaxis. SCDs held due to amputation of the left lower extremity. Lovenox 40 mg subcutaneously daily. Pepcid 20 mg p.o. b.i.d. PT/OT evaluation in the a.m. CODE STATUS: Full. Surrogate medical decision maker is the patient's son. Job ID: [id number]
[2018-09-24] MEDS: Benzonatate 100 MG CAP PO PRN ×2 (03:29→17:15)
[2018-09-24] MEDS: Acetaminophen 500 MG TAB PO PRN ×3 (03:29→17:16)
[2018-09-24 05:43] LABS: Hemoglobin A1c 6.1 % (4.0-6.0)
[2018-09-24] MEDS: Furosemide 40 MG/4 ML VIAL SLOW IVP SCH ×2 (05:45→15:53)
[2018-09-24 05:56] LABS: Anion Gap 11 mmol/L (10-20); BUN (Urea Nitrogen) 23 mg/dL (8.4-25.7); Calc. Creatinine Clearance 97 mL/min (70-130); Calcium 8.4 mg/dL (7.8-10.44); Carbon Dioxide 21 mmol/L (22-29); Chloride 112 mmol/L (98-107); Estimated GFR-MDRD 83; Glucose 124 mg/dL (70-105); Potassium 3.4 mmol/L (3.5-5.1); Sodium 141 mmol/L (136-145)
[2018-09-24 06:38] LABS: Band 4 % (5-11); Eosinophils 9 % (0-10); Hemoglobin 11.8 g/dL (14.0-18.0); Lymphocytes 20 % (21-51); MDiff Complete? YES; Mean Corpuscular HGB CONC 33.5 g/dL (32.0-36.0); Mean Corpuscular Hemoglobin 31.3 pg (27.0-31.0); Mean Corpuscular Volume 93.2 fL (78.0-98.0); Mean Platelet Volume 8.7 fL (7.4-10.4); Monocytes 4 % (0-10); Neutrophil 61 % (42-75); Platelet Count 85 thou/uL (130-400); Platelet Morphology Comment Appears Decreased; RBC Distribution Width 13.2 % (11.5-14.5); Reactive Lymphocytes 2 % (0-10); Red Blood Cell (RBC) Count 3.78 mill/uL (4.70-6.10); White Blood Cell (WBC) Count 4.3 thou/uL (4.8-10.8)
[2018-09-24] MEDS: Clopidogrel Bisulfate 75 MG TAB PO SCH (08:44)
[2018-09-24] MEDS: Aspirin 81 mg Enteric Coated Tablet PO SCH (08:44)
[2018-09-24] MEDS: Famotidine 20 MG TAB PO SCH ×2 (08:44→20:41)
[2018-09-24] MEDS: Enoxaparin Sodium 40 MG/0.4 ML SYRINGE SC SCH (08:44)
--- NOTE | 2018-09-24 17:05 | PDOC.PN ---
- Subjective Encounter Start Date: 09/24/18 Encounter Start Time: 16:50 Subjective: f/u for fall and chest contusions as well as CHF. Feels ok overall except -: for rib pain and mild cough. Voiding with IV Lasix. - Objective Resuscitation Status - Order Detail: 09/23/18 19:03 Resuscitation Status Routine Resuscitation Status: FULL: Full Resuscitation MAR Reviewed: Yes Vital Signs & Weight: Vital Signs (12 hours) Temp Pulse Pulse Pulse Resp BP BP 09/24/18 14:10 80 88 145/70 H 199/91 H 09/24/18 14:05 65 16 09/24/18 12:29 98 F 82 16 09/24/18 10:19 61 14 09/24/18 07:30 97.9 F 70 18 09/24/18 06:33 50 L 12 BP Pulse Ox Pulse Ox Pulse Ox 09/24/18 14:10 98 97 09/24/18 14:05 95 09/24/18 12:29 113/62 100 09/24/18 10:19 96 09/24/18 07:30 132/76 99 09/24/18 06:33 95 Weight Weight 174 lb 1.6 oz I&O: 09/23/18 09/24/18 09/25/18 06:59 06:59 06:59 Output Total 1475 800 Balance -1475 -800 Result Diagrams: 09/24/18 05:07 09/24/18 05:07 Additional Labs: Accuchecks 09/24/18 09/23/18 11:20 21:01 POC Glucose 214 H 85 Microbiology 07/05/17 16:00 Urine lawrence catheter Urine Culture - Preliminary Proteus mirabilis 07/05/17 15:55 Venous blood - Right Arm Blood Culture - Preliminary Specimen has been received and culture in progress. No Growth to date. 07/05/17 15:43 Venous blood - Left Hand Blood Culture - Preliminary Specimen has been received and culture in progress. No Growth to date. Laboratory Tests 07/05/17 07/05/17 09/23/18 15:43 15:43 14:18 WBC 4.2 L Hgb 8.3 L Plt Count 75 L Potassium 4.1 Creatinine 1.65 H Hemoglobin A1c TSH 3rd Generation 09/24/18 09/24/18 05:07 05:07 WBC Hgb Plt Count Potassium Creatinine Hemoglobin A1c 6.1 H TSH 3rd Generation 1.2117 Radiology Reviewed by me: Yes (Echo - EF 30-35%, severe TR, severe LAE) EKG Reviewed by me: Yes (Tele - SR) Phys Exam - Physical Examination Constitutional: NAD HEENT: PERRLA, sclera anicteric, oral pharynx no lesions Neck: no nodes, no JVD, supple, full ROM diminished in bases, few crackles Respiratory: no wheezing S1, S2 with distant heart sounds Cardiovascular: RRR, no rub, gallop Gastrointestinal: soft, non-tender, no distention, positive bowel sounds contracture RUE/hand LLE BKA Musculoskeletal: no edema, pulses present Neurological: normal sensation, moves all 4 limbs Psychiatric: A&O x 3 Skin: normal turgor, cap refill <2 seconds Dx/Plan (1) Acute on chronic systolic and diastolic heart failure, NYHA class 2 Code(s): I50.43 - ACUTE ON CHRONIC COMBINED SYSTOLIC AND DIASTOLIC HRT FAIL Status: Acute Comment: Mild decompensation, continue Lasix 40mg IV BID, Echo showing mild improvement in EF 30-35% (2) Chest wall pain Code(s): R07.89 - OTHER CHEST PAIN Status: Acute Comment: contusion s/p fall with blunt injury, supportive mgmt (3) Abnormal cardiac enzyme level Code(s): R74.8 - ABNORMAL LEVELS OF OTHER SERUM ENZYMES Status: Chronic Comment: chronic demand ischemia (4) HTN (hypertension) Code(s): I10 - ESSENTIAL (PRIMARY) HYPERTENSION Status: Chronic Qualifiers: Hypertension type: essential hypertension Qualified Code(s): I10 - Essential (primary) hypertension Comment: Resume home BP regimen and monitor serial BP's (5) CAD (coronary artery disease) Code(s): I25.10 - ATHSCL HEART DISEASE OF [place] CORONARY ARTERY W/O ANG PCTRS Status: Chronic Qualifiers: Coronary Disease-Associated Artery/Lesion type: [place] artery [place] vs. transplanted heart: [place] heart Associated angina: without angina Qualified Code(s): I25.10 - Atherosclerotic heart disease of [place] coronary artery without angina pectoris Comment: Continue dual anti-platelet therapy, Lipitor, Coreg (6) COPD (chronic obstructive pulmonary disease) Status: Chronic Qualifiers: COPD type: chronic bronchitis Comment: Bronchodilators, Duonebs, Anoro Ellipta - Plan PT/OT, transition social worker, respiratory therapy, out of bed/ambulate Stable currently -: Continue Lasix 40mg IV BID -: Resume home BP regimen -: Bronchodilator therapy -: KCL 40meq x 1 now then BID * AM lab: BMP * Likely home in 24h
[2018-09-24] MEDS ORDERED: Non-Formulary Item 1 EACH (Albuterol Sulfate [Proair Respiclick] 90 MCG) IH PRN (17:09)
[2018-09-24] MEDS ORDERED: PROVENTIL INHALER 6.7 G (200 INHALATIONS) INH PRN ×2 (17:15→17:30)
[2018-09-24] MEDS ORDERED: Potassium Chloride 20 MEQ TAB PO SCH (17:15)
[2018-09-24] MEDS: Carvedilol 6.25 MG TAB PO SCH (20:40)
[2018-09-24] MEDS: Gabapentin 400 MG CAP PO SCH (20:40)
[2018-09-24] MEDS: Atorvastatin Calcium 40 MG TAB PO SCH (20:40)
[2018-09-24] MEDS ORDERED: Insulin Glargine 5 UNITS in Pre-Filled Syringe 1 EACH SC SCH (21:00)
[2018-09-24] MEDS ORDERED: SERTRALINE HCL PO SCH (21:00)
[2018-09-24] MEDS ORDERED: Non-Formulary Item 1 EACH (Gabapentin [Gabapentin] 800 MG) PO SCH (21:00)
[2018-09-25] MEDS: Furosemide 40 MG/4 ML VIAL SLOW IVP SCH (05:51)
[2018-09-25 05:55] LABS: Anion Gap 15 mmol/L (10-20); BUN (Urea Nitrogen) 24 mg/dL (8.4-25.7); Calc. Creatinine Clearance 84 mL/min (70-130); Calcium 8.5 mg/dL (7.8-10.44); Carbon Dioxide 17 mmol/L (22-29); Chloride 112 mmol/L (98-107); Estimated GFR-MDRD 72; Glucose 103 mg/dL (70-105); Sodium 140 mmol/L (136-145)
[2018-09-25] MEDS ORDERED: [UNRECOGNIZED DRUG - OTHER] IH SCH (07:00)
[2018-09-25] MEDS ORDERED: ANORO ELLIPTA INH SCH (07:00)
[2018-09-25] MEDS ORDERED: Potassium Chloride 20 MEQ TAB PO SCH (08:00)
[2018-09-25 08:01] VITALS: TEMP 97.7
[2018-09-25] MEDS: Enoxaparin Sodium 40 MG/0.4 ML SYRINGE SC SCH (08:36)
[2018-09-25] MEDS: Carvedilol 6.25 MG TAB PO SCH (08:37)
[2018-09-25] MEDS: Gabapentin 400 MG CAP PO SCH (08:37)
[2018-09-25] MEDS: Famotidine 20 MG TAB PO SCH (08:37)
[2018-09-25] MEDS: Clopidogrel Bisulfate 75 MG TAB PO SCH (08:38)
[2018-09-25] MEDS: Aspirin 81 mg Enteric Coated Tablet PO SCH (08:38)
[2018-09-25] MEDS ORDERED: Ferrous Sulfate 325 MG TAB PO SCH (09:00)
[2018-09-25] MEDS ORDERED: Tamsulosin HCl 0.4 MG CAP PO SCH ×2 (09:00)
[2018-09-25] MEDS ORDERED: Non-Formulary Item 1 EACH (Insulin Glargine,Hum.Rec.Anlog [Lantus Solostar] 5 UNIT) SQ SCH (09:00)
[2018-09-25] MEDS ORDERED: Non-Formulary Item 1 EACH (Ferrous Sulfate [Iron] 325 MG) PO SCH (09:00)
--- NOTE | 2018-09-25 09:51 | DIS ---
DATE OF ADMISSION: 09/23/2018 DATE OF DISCHARGE: 09/25/2018 DISCHARGE DIAGNOSES: 1. Acute on chronic systolic/diastolic congestive heart failure, [place] Heart Association class II, stable. 2. Chest wall pain, status post blunt trauma. 3. Chronic demand ischemia. 4. Hypertension, stable. 5. Coronary artery disease, chronic and stable. 6. Chronic obstructive pulmonary disease, stable. CONSULTATIONS: None. PERTINENT LABS AND X-RAY FINDINGS: Creatinine ranged between 0.86 to 1.06. Estimated GFR ranged between 72 to greater than 90. Hemoglobin A1c 6.1. TSH 1.21. Troponin I ranged between 0.040 to 0.046. BNP 242. Urine culture dated 09/23/2018, showed mixed culture. Portable chest x-ray dated 09/23/2018,, showed mild pulmonary vascular prominence with small bilateral pleural effusions. 2D transthoracic echocardiogram dated 09/24/2018, showed ejection fraction of 30% to 35%. Severe left atrial enlargement. Moderate mitral valve regurgitation. Severe tricuspid valve regurgitation. HOSPITAL COURSE: The patient was observed on the telemetry unit after initially presenting with fall and weakness with left rib cage pain. The patient was placed on general supportive management, undergoing a chest imaging showing evidence of mild pulmonary vascular prominence. The patient was treated with IV Lasix for mild volume overload in the context of known systolic congestive heart failure. Repeat 2D transthoracic echocardiogram was performed showing a mild improvement in ejection fraction to 30% to 35%. The patient diuresed appropriately and symptomatically improved. The patient received oral pain medication for chest wall pain due to rib contusions. The patient was also evaluated by the Physical and Occupational Therapy Service with recommendations for a rolling walker or cane for ambulation. The patient also cautioned to ensure proper fitting of left lower extremity prosthesis prior to ambulating. Overall, the patient did remain clinically stable under observation, tolerating regular oral intake, voiding appropriately with stable vital signs. I have examined the patient at the time of discharge and discussed followup instructions. The patient verbalized understanding and agreement, and ready for discharge on 09/25/2018. DISCHARGE MEDICATIONS: 1. Lisinopril 5 mg p.o. daily. 2. Tramadol 50 mg p.o. q.i.d. p.r.n. 3. ProAir RespiClick 90 mcg inhaled q.6 hours p.r.n. 4. Enteric-coated aspirin 81 mg p.o. daily. 5. Lipitor 40 mg p.o. at bedtime. 6. Plavix 37.5 mg p.o. daily. 7. Ferrous sulfate 325 mg p.o. daily. 8. Gabapentin 800 mg p.o. t.i.d. 9. Levsin SL 0.125 mg sublingually q.4 hours p.r.n. 10. Glargine insulin 5 units subcutaneously daily. 11. DuoNeb 3 mL nebulized t.i.d. p.r.n. 12. Isosorbide mononitrate 30 mg p.o. daily. 13. Potassium 20 mEq p.o. daily. 14. Ranitidine 150 mg p.o. t.i.d. 15. Sertraline 50 mg p.o. at bedtime. 16. Tamsulosin 0.4 mg p.o. daily. 17. Anoro Ellipta 62.5/25 mcg one inhalation daily. 18. Coreg 6.25 mg p.o. b.i.d. 19. Lasix 40 mg p.o. b.i.d. FOLLOWUP: The patient will follow up with Dr. Layne within 7 days of discharge. CONDITION ON DISCHARGE: Stable. ACTIVITY: Ad-skylar. DIET: Heart healthy and ADA. CODE STATUS: Full. DISPOSITION: Home, 09/25/2018. Job ID: [id number]
[2018-09-25] MEDS: Acetaminophen 500 MG TAB PO PRN (10:44)
[2018-09-25] MEDS: Benzonatate 100 MG CAP PO PRN (10:44)
--- NOTE | 2018-09-25 17:30 | EKG ---
Test Reason : Blood Pressure : / mmHG Vent. Rate : 069 BPM Atrial Rate : 071 BPM P-R Int : 000 ms QRS Dur : 092 ms QT Int : 420 ms P-R-T Axes : 000 068 056 degrees QTc Int : 450 ms Normal sinus rhythm with Premature atrial complexes Otherwise normal ECG When compared with ECG of 05-JUL-2017 15:31, Current undetermined rhythm precludes rhythm comparison, needs review Nonspecific T wave abnormality, improved in Anterolateral leads Confirmed by LAZARUS PIERCE, DR. Almaraz ([id number]) on 09/25/2018 5:30:07 PM Referred By: CORAZON Confirmed By:DR. Rufina QIU MD
[2018-09-26 08:33] VITALS: BP 108/65
--- NOTE | 2018-09-30 17:18 | EKG ---
Test Reason : Blood Pressure : / mmHG Vent. Rate : 068 BPM Atrial Rate : 067 BPM P-R Int : 000 ms QRS Dur : 080 ms QT Int : 410 ms P-R-T Axes : 000 059 -45 degrees QTc Int : 435 ms Atrial fibrillation Nonspecific T wave abnormality , probably digitalis effect Abnormal ECG Confirmed by MARIANA VENEGAS DO ([id number]), magazine editor LEOLA PARR ([id number]) on 09/30/2018 5:17:44 PM Referred By: Confirmed By:MARIANA VENEGAS DO
== END 2018-09-25 12:08 | disposition home or self-care (01) ==
LOC: ERS 12:09 → 2SW 15:42
PROVIDERS: ADMIT Family Medicine; ATTEND Family Medicine
DX: R07.89 Other chest pain (principal); S20.212A Contusion of left front wall of thorax, initial encounter; I13.0 Hypertensive heart and chronic kidney disease with heart failure and stage 1 through stage 4 chronic kidney disease, or unspecified chronic kidney disease; E11.22 Type 2 diabetes mellitus with diabetic chronic kidney disease; N18.2 Chronic kidney disease, stage 2 (mild); I50.43 Acute on chronic combined systolic (congestive) and diastolic (congestive) heart failure; I25.10 Atherosclerotic heart disease of native coronary artery without angina pectoris; I25.5 Ischemic cardiomyopathy; E11.40 Type 2 diabetes mellitus with diabetic neuropathy, unspecified; E11.21 Type 2 diabetes mellitus with diabetic nephropathy; I73.9 Peripheral vascular disease, unspecified; I24.8 Other forms of acute ischemic heart disease; J44.9 Chronic obstructive pulmonary disease, unspecified; E78.5 Hyperlipidemia, unspecified; F12.10 Cannabis abuse, uncomplicated; Z89.512 Acquired absence of left leg below knee; Z95.5 Presence of coronary angioplasty implant and graft; Z95.810 Presence of automatic (implantable) cardiac defibrillator; Z89.421 Acquired absence of other right toe(s); Z79.82 Long term (current) use of aspirin; Z79.02 Long term (current) use of antithrombotics/antiplatelets; Z79.899 Other long term (current) drug therapy; W18.09XA Striking against other object with subsequent fall, initial encounter
CPT/HCPCS: 71046; 80048 ×2; 80053; 82553; 82962 ×2; 83036; 83880; 84443; 84484 ×2; 85007; 85025; 85027; 87086; 93005 ×2; 93306; 94640 ×3; 96372 ×2; 96374; 96376 ×2; 97116; 97139; 97535; 99285; G0378 ×2; 36415; 36416; 81003; 81015; 93010; J1650; J1825; J1940; J7620

== ENCOUNTER 2018-11-07 15:44 | Inpatient (IN) | payer MEDICARE ==
--- NOTE | 2018-11-07 16:53 | RAD ---
FRONTAL VIEW CHEST: 11/07/18 COMPARISON: 09/23/18 INDICATION: CHF exacerbation. Chest pressure. Abnormal breath sounds. FINDINGS: There is enlargement of the cardiac silhouette and pulmonary vasculature. Bilateral interstitial and alveolar opacities indicate edema. Bilateral pleural effusion present. Chest otherwise similar. IMPRESSION: Decompensated CHF. Recommend followup to resolution. POS: SUNITA
[2018-11-07 17:20] LABS: #Eosinphils 0.1 thou/uL (0.0-0.7); #Lymphocytes 0.9 thou/uL (1.20-3.40); #Monocytes 0.5 thou/uL (0.11-0.59); #Neutrophils 4.8 thou/uL (1.40-6.50); %Basophils 0.3 % (0.0-1.0); %Eosinophils 1.4 % (0.0-10.0); %Lymphocytes 14.5 % (21.0-51.0); %Monocytes 8.4 % (0.0-10.0); %Neutrophils 75.4 % (42.0-75.0); Hemoglobin 12.3 g/dL (14.0-18.0); Mean Corpuscular HGB CONC 32.6 g/dL (32.0-36.0); Mean Corpuscular Hemoglobin 31.2 pg (27.0-31.0); Mean Corpuscular Volume 95.6 fL (78.0-98.0); Mean Platelet Volume 8.3 fL (7.4-10.4); Platelet Count 122 thou/uL (130-400); RBC Distribution Width 13.7 % (11.5-14.5); Red Blood Cell (RBC) Count 3.94 mill/uL (4.70-6.10); White Blood Cell (WBC) Count 6.4 thou/uL (4.8-10.8)
[2018-11-07 17:48] LABS: ALT (SGPT) 9 U/L (8-55); AST (SGOT) 16 U/L (5-34); Albumin 3.5 g/dL (3.5-5.0); Alkaline Phosphatase 236 U/L (40-150); Anion Gap 12 mmol/L (10-20); BUN (Urea Nitrogen) 17 mg/dL (8.4-25.7); Bilirubin, Total 0.8 mg/dL (0.2-1.2); CK (CPK) 60 U/L (30-200); Calc. Creatinine Clearance 0 mL/min (70-130); Calcium 8.8 mg/dL (7.8-10.44); Carbon Dioxide 24 mmol/L (22-29); Chloride 107 mmol/L (98-107); Estimated GFR-MDRD 73; Globulin 3.5 g/dL (2.4-3.5); Glucose 176 mg/dL (70-105); Lipase 5 U/L (8-78); Potassium 4.3 mmol/L (3.5-5.1); Sodium 139 mmol/L (136-145)
[2018-11-07 18:05] LABS: CKMB 2.8 ng/mL (0-6.6)
[2018-11-07] MEDS ORDERED: Nitroglycerin 2% Ointment 1 INCH/1 GM Packet ONE (20:13)
[2018-11-07 22:37] LABS: Troponin I 0.044 ng/mL (< 0.028)
[2018-11-08 04:56] LABS: Troponin I 0.027 ng/mL (< 0.028)
[2018-11-08] MEDS ORDERED: Dextrose 50% Abboject 50 ML SYRINGE SLOW IVP PRN (10:56)
[2018-11-08] MEDS ORDERED: HumaLOG 300 UNITS/3 ML VIAL SC PRN (10:56)
[2018-11-08] MEDS ORDERED: hydrALAZINE 20 MG/ML VIAL SLOW IVP PRN (10:56)
[2018-11-08] MEDS ORDERED: Acetaminophen 325 MG TAB PO PRN (10:56)
[2018-11-08] MEDS ORDERED: Nitroglycerin 0.4 MG TAB (25 Tab Bottle) SL PRN (10:56)
[2018-11-08] MEDS ORDERED: Dextrose 5% in Water 1,000 ML IV PRN (10:56)
--- NOTE | 2018-11-08 11:33 | HP ---
PRIMARY CARE PHYSICIAN: Dr. Morales. PROSTHETIST: Dr. Quan. CHIEF COMPLAINT: "Having shortness of breath when walking and I could tell the fluid was building up." HISTORY OF PRESENT ILLNESS: Mr. Hein is a very pleasant 58-year-old gentleman, who has a history of chronic systolic heart failure. His last ejection fraction was estimated around 30% to 35%. He also has an operable ischemic heart disease as well. He says that he began having difficulties on Tuesday. He noticed that he could walk only shorter distances without getting short of breath. He also could tell the fluid was building up because he was having increasing swelling in his legs. He also felt like it was hard to breathe and he was "drowning." He also noted some pressure in his chest on Tuesday as well. He was not doing anything particular. At the time, he was just sitting and watching TV. He says that the pressure radiated into his neck and to his back and shoulder. He also noted some nausea and feeling a bit cold and clammy during this time. He has experience with congestive heart failure and says that he noticed that his weight was increasing too. He is up about 18 pounds from his baseline weight and he tried to call and get an appointment with his physician, but he was not able to, so he took it upon himself to increase his Lasix from 40 to 60 mg twice a day. He did this on Tuesday, but it did not improve his symptoms. He also said he was compliant with his fluid restriction of just a liter and a half a day and even "stopped eating" because he was afraid he might be getting too much sodium in his diet, but noted that this did not help, and for this reason, he came to the ER for evaluation. In the ER, they did a chest x-ray, which showed findings consistent with volume overload and he is being admitted for CHF exacerbation. With regard to the review of systems, all systems were reviewed and are negative with the exception of some left lower quadrant abdominal pain and he also admitted to some bright red blood per rectum, but no rectal pain. No change in bowel such as diarrhea or constipation and he does admit to having a colonoscopy a couple of years ago, which he said he believes was negative. PAST MEDICAL HISTORY: Significant for chronic systolic heart failure with an ejection fraction of 30% to 35%; cerebral vascular accident; coronary artery disease; diabetes mellitus; peripheral vascular disease; dyslipidemia; COPD, on home oxygen; and chronic kidney disease, stage 2. PAST SURGICAL HISTORY: Recently, he had a right carotid endarterectomy. He says that the other side, the left side is about 75% blocked. He has had bypass surgery five vessel and has had numerous coronary stents placed. Left BKA amputation of the toes on the right foot, spinal surgery, AICD placement, and a right rotator cuff surgery. ALLERGIES: NO KNOWN DRUG ALLERGIES. SOCIAL HISTORY: He is single. Has 2 children. His son, Valentin Hein, is his surrogate decision maker. He would like to be a full code. He smokes about a pack of cigarettes a week for the last 40 years. He has tried nicotine patches without relief. He also drinks about a 6 pack every month. FAMILY HISTORY: Significant for diabetes and cancer. CURRENT MEDICATIONS: His current medications are taken from the ER records, which include; 1. Isosorbide mononitrate 30 mg once a day. 2. Reglan 10 mg 3 times a day. 3. Carvedilol 6.25 mg twice a day. 4. Insulin 5 units subcu before meals. 5. Albuterol inhaler as needed. 6. Anoro Ellipta inhaler 62.5/25 mcg daily. 7. Aspirin 325 mg daily. 8. Plavix 75 mg once a day. 9. Iron sulfate 325 mg once daily. 10. Gabapentin 800 mg 3 times a day. 11. Nitrostat sublingual p.r.n. 12. Pantoprazole 40 mg daily. 13. Ranitidine 150 mg 3 times a day. 14. Flomax 0.4 mg daily. 15. Dulcolax p.r.n. 16. [place] 10/325 q.6 hours as needed. 17. Lorazepam p.r.n. 18. Morphine 20 mg p.r.n. PHYSICAL EXAMINATION: GENERAL: He is alert and oriented. He appears to be in no acute distress. He is well developed and well nourished. VITAL SIGNS: Blood pressure was 153/74, heart rate 78, respiratory rate of 18, and temperature is 98.1. HEENT: His pupils are equal, round, and reactive to light. Extraocular muscles are intact. His sclerae are anicteric. Throat; there is no erythema. No exudates. NECK: No adenopathy. No appreciable bruits. LUNGS: Essentially clear to auscultation. He did have some basilar rales. There was no wheezing. No rhonchi. CARDIOVASCULAR: He had a normal S1 and S2. I did not appreciate an S3 or S4. No murmurs, or clicks. No rubs. ABDOMEN: Obese. It is soft. He did have some left lower quadrant tenderness. There is no rebound. No guarding. No appreciable organomegaly. EXTREMITIES: He has a left BKA and his prosthesis is in place. On the right lower extremity, he does have 2+ pitting edema. Some hyperpigmentation consistent with chronic venous stasis changes. He has a trans-tarsal amputation and no other lesions. His pulses are nonpalpable, but his feet are warm and dry. NEUROLOGICAL: Grossly, he is intact. SKIN AND INTEGUMENT: Again, some chronic venous stasis changes, but no skin lesions or rash. LABORATORY DATA AND X-RAY: On his chest x-ray by my reading, he has cardiomegaly. The AICD is in place. He has elevation of his right hemidiaphragm, bilateral pleural effusions, and some increased pulmonary vascular markings consistent with CHF. His EKGs also by my reading is undetermined rhythm. He had some nonspecific ST wave changes. He had lab work on 11/07 and that include a sodium of 139, potassium 4.3, chloride is 107, CO2 is 24, BUN of 17, creatinine 1.05, and glucose is 176. Alkaline phosphatase was 236. Troponin is initially 0.36. White blood cell count 6.4, hemoglobin 12.3, hematocrit is 37.6, and platelet count is 122. ASSESSMENT: This is a pleasant 58-year-old gentleman, who presents to the ER with shortness of breath, which has been progressive as well as some chest pressure. His symptoms likely represent an acute on chronic exacerbation of his congestive heart failure as he is clinically volume overloaded on exam as well as radiographically, he has increased pulmonary vascular markings and an elevated BNP. I suspect that the chest pressure could be related to the volume overload as well. Therefore for, 1. Acute on chronic systolic heart failure. He will be placed on IV Lasix. We will continue his usual medications for heart failure and we will monitor his blood pressure. If this remains elevated, then we may need to make adjustments to help with afterload reduction. 2. Chest pain. He does have a history of ischemic cardiomyopathy, which is nonoperable. I suspect that with the volume overload, it is causing some exacerbation of his coronary artery disease. We will continue the nitroglycerin paste for now in lieu of his Imdur. His last troponin has began to trend down. Therefore, we will not continue trending his troponins and we will continue his other cardiac medications. 3. Diabetes mellitus. Again, we will reconcile and continue his home medications as well as a sliding-scale insulin. 4. Chronic obstructive pulmonary disease. We will continue his long-acting beta-agonist, either his or are to one on formulary and continue with catie Dennis. 5. He will also be placed on deep venous thrombosis and gastrointestinal prophylaxis. Job ID: [id number]
[2018-11-08] MEDS ORDERED: Lisinopril 5 MG TAB PO SCH (12:15)
[2018-11-08] MEDS ORDERED: Aspirin 81 mg Enteric Coated Tablet PO SCH (12:15)
[2018-11-08] MEDS ORDERED: Clopidogrel Bisulfate 75 MG TAB PO SCH (12:15)
[2018-11-08] MEDS ORDERED: Acetaminophen 325 MG TAB ONE (12:20)
[2018-11-08] MEDS ORDERED: Nitroglycerin 2% Ointment 1 INCH/1 GM Packet ONE (12:20)
[2018-11-08] MEDS ORDERED: Aspirin Chewable 81 MG TAB ONE (12:21)
[2018-11-08] MEDS ORDERED: Clopidogrel Bisulfate 75 MG TAB ONE (12:22)
[2018-11-08] MEDS ORDERED: Lisinopril 10 MG TAB ONE (12:23)
[2018-11-08] MEDS: Nitroglycerin 2% Ointment 1 INCH/1 GM Packet TOP SCH ×2 (13:00→20:05)
--- NOTE | 2018-11-08 13:10 | CON ---
DATE OF CONSULTATION: SUBJECTIVE: The patient is an unfortunate 58-year-old gentleman with severe nonfocal coronary artery disease, who presented with recurrent chest discomfort and dyspnea. The patient in 2008 underwent coronary bypass graft surgery x5. He had a HARMON to the LAD, saphenous graft to the PDA, a graft to the ramus, diagonal branch and obtuse marginal branch. The patient also had placement of an automatic implantable cardiac defibrillator. The patient was followed by Dr. Elkins at [facility]. The patient has undergone several stents placed and he developed to have severe diffuse coronary artery disease. The patient was admitted on multiple occasions with angina. He presents again with increasing dyspnea and chest discomfort. PAST MEDICAL HISTORY: 1. Coronary artery disease. 2. Diabetes mellitus. 3. Hypertension. 4. Peripheral vascular disease. PAST SURGICAL HISTORY: He has had shoulder surgery, back surgery, toe surgery, and a left BKA. MEDICATIONS: See nursing. ALLERGIES: NONE. SOCIAL HISTORY: Former smoker. FAMILY HISTORY: Positive family history of heart disease. REVIEW OF SYSTEMS: Twelve point system otherwise unremarkable. PHYSICAL EXAMINATION: GENERAL: This is a well-developed gentleman, no acute distress with a blood pressure of 173/112. NECK: Showed no jugular venous distention. LUNGS: Clear to auscultation. HEART: Regular rate and rhythm. Normal S1 and S2. No murmurs. ABDOMEN: Nondistended. EXTREMITIES: He is status post left BKA. VASCULAR: Radial pulses 2+. LABORATORY DATA: Sodium 139, potassium 4.3, chloride 107, bicarb 24, BUN 17, creatinine is 1.05, glucose 176. Troponin 0.044. White blood cell count 6.4, hemoglobin 12.3, hematocrit 37.6, platelets are 122. IMAGING: His EKG is not here on the chart. IMPRESSION: 1. Unstable angina. 2. Congestive heart failure. 3. Severe cardiomyopathy. 4. Hypertension. 5. Dyslipidemia. 6. Status post [id number] amputation. 7. This gentleman presents with unstable angina and the patient being treated with nitroglycerin. He is on aspirin and Plavix. 8. From a cardiac standpoint, there is no evidence of an acute infarction. The patient needs improved control of hypertension. We will follow this patient with you through his hospitalization. Job ID: [id number]
[2018-11-08] MEDS ORDERED: Furosemide 40 MG/4 ML VIAL ONE (15:06)
[2018-11-08] MEDS: Heparin 5,000 UNITS/ML VIAL SC SCH ×2 (15:17→20:06)
[2018-11-08] MEDS: Furosemide 40 MG/4 ML VIAL SLOW IVP SCH (15:17)
[2018-11-08 17:00] VITALS: BMI 27.3
[2018-11-08] MEDS: Carvedilol 6.25 MG TAB PO SCH (20:05)
[2018-11-08] MEDS: Famotidine 20 MG TAB PO SCH (20:05)
[2018-11-08] MEDS: Atorvastatin Calcium 40 MG TAB PO SCH (20:05)
[2018-11-09] MEDS: Nitroglycerin 2% Ointment 1 INCH/1 GM Packet TOP SCH ×3 (05:02→20:06)
[2018-11-09] MEDS: Furosemide 40 MG/4 ML VIAL SLOW IVP SCH ×2 (05:03→14:06)
[2018-11-09 06:35] LABS: #Eosinphils 0.1 thou/uL (0.0-0.7); #Lymphocytes 1.2 thou/uL (1.20-3.40); #Monocytes 0.6 thou/uL (0.11-0.59); %Basophils 0.5 % (0.0-1.0); %Eosinophils 1.8 % (0.0-10.0); %Lymphocytes 20.4 % (21.0-51.0); %Monocytes 9.8 % (0.0-10.0); %Neutrophils 67.5 % (42.0-75.0); Hemoglobin 12.1 g/dL (14.0-18.0); Mean Corpuscular Hemoglobin 31.6 pg (27.0-31.0); Mean Corpuscular Volume 95.9 fL (78.0-98.0); Mean Platelet Volume 8.8 fL (7.4-10.4); Platelet Count 114 thou/uL (130-400); RBC Distribution Width 13.5 % (11.5-14.5); Red Blood Cell (RBC) Count 3.83 mill/uL (4.70-6.10)
[2018-11-09 06:48] LABS: Anion Gap 13 mmol/L (10-20); BUN (Urea Nitrogen) 20 mg/dL (8.4-25.7); Calc. Creatinine Clearance 96 mL/min (70-130); Calcium 8.8 mg/dL (7.8-10.44); Carbon Dioxide 25 mmol/L (22-29); Chloride 104 mmol/L (98-107); Estimated GFR-MDRD 75; Glucose 77 mg/dL (70-105); Potassium 4.5 mmol/L (3.5-5.1); Sodium 137 mmol/L (136-145)
[2018-11-09] MEDS: Clopidogrel Bisulfate 75 MG TAB PO SCH (08:02)
[2018-11-09] MEDS: Famotidine 20 MG TAB PO SCH ×2 (08:02→20:07)
[2018-11-09] MEDS: Tamsulosin HCl 0.4 MG CAP PO SCH (08:02)
[2018-11-09] MEDS: Heparin 5,000 UNITS/ML VIAL SC SCH (08:03)
[2018-11-09] MEDS: Aspirin 81 mg Enteric Coated Tablet PO SCH (08:03)
[2018-11-09] MEDS: Lisinopril 5 MG TAB PO SCH (08:03)
[2018-11-09] MEDS: Carvedilol 6.25 MG TAB PO SCH ×2 (08:03→20:07)
[2018-11-09] MEDS ORDERED: Clopidogrel Bisulfate 75 MG TAB PO SCH (09:00)
[2018-11-09] MEDS ORDERED: Lisinopril 5 MG TAB PO SCH (09:00)
[2018-11-09] MEDS ORDERED: Aspirin 81 mg Enteric Coated Tablet PO SCH (09:00)
--- NOTE | 2018-11-09 09:46 | PDOC.PN ---
- Subjective Encounter Start Date: 11/09/18 Encounter Start Time: 09:45 Mr. Hein was seen today in follow-up of CHF exacerbation. He says he feels better this morning. He notes occasionally he will have an episode of dyspnea, or a feeling of gasping then it will get better. - Objective Resuscitation Status - Order Detail: 11/08/18 09:28 Resuscitation Status Routine Resuscitation Status: FULL: Full Resuscitation MAR Reviewed: Yes Vital Signs & Weight: Vital Signs (12 hours) Temp Pulse Resp BP Pulse Ox 11/09/18 08:03 93 11/09/18 08:00 97.4 F L 62 17 138/72 97 11/09/18 04:00 98.1 F 93 20 115/67 98 Weight Weight 182 lb 2 oz I&O: 11/08/18 11/09/18 11/10/18 06:59 06:59 06:59 Intake Total 240 400 Output Total 900 875 Balance -660 -475 Result Diagrams: 11/09/18 05:11 11/09/18 05:11 Additional Labs: Accuchecks 11/08/18 11/08/18 16:55 11:46 POC Glucose 117 H 135 H Phys Exam - Physical Examination HEENT: PERRLA Respiratory: no wheezing, no rales, no rhonchi, clear to auscultation bilateral Cardiovascular: RRR, no significant murmur, no rub Gastrointestinal: soft, non-tender, no distention, positive bowel sounds Musculoskeletal: edema present pulses absent, but foot warm, + venous stasis changes Dx/Plan (1) Acute on chronic systolic and diastolic heart failure, NYHA class 2 Code(s): I50.43 - ACUTE ON CHRONIC COMBINED SYSTOLIC AND DIASTOLIC HRT FAIL Status: Acute Comment: Mild decompensation, continue Lasix 40mg IV BID, Echo showing mild improvement in EF 30-35% (2) CAD (coronary artery disease) Code(s): I25.10 - ATHSCL HEART DISEASE OF [place] CORONARY ARTERY W/O ANG PCTRS Status: Chronic Qualifiers: Coronary Disease-Associated Artery/Lesion type: [place] artery [place] vs. transplanted heart: [place] heart Associated angina: without angina Qualified Code(s): I25.10 - Atherosclerotic heart disease of [place] coronary artery without angina pectoris Comment: Continue dual anti-platelet therapy, Lipitor, Coreg (3) COPD (chronic obstructive pulmonary disease) Status: Chronic Qualifiers: COPD type: chronic bronchitis Comment: Bronchodilators, Duonebs, Anoro Ellipta (4) DM type 2 (diabetes mellitus, type 2) Status: Chronic Qualifiers: Diabetes mellitus fdc insulin use: with fdc use Diabetes mellitus complication status: with kidney complications Diabetes mellitus complication detail: with chronic kidney disease Chronic kidney disease stage : stage 3 (moderate) Qualified Code(s): E11.22 - Type 2 diabetes mellitus with diabetic chronic kidney disease; N18.3 - Chronic kidney disease, stage 3 ( moderate); N18.3 - Chronic kidney disease, stage 3 (moderate); Z79.4 - exterminator (current) use of insulin; Z79.4 - FPC (current) use of insulin; Z79.4 - FPC (current) use of insulin; Z79.4 - FPC (current) use of insulin Comment: Resume Levemir, ISS, serial accuchecks (5) HTN (hypertension) Code(s): I10 - ESSENTIAL (PRIMARY) HYPERTENSION Status: Chronic Qualifiers: Hypertension type: essential hypertension Qualified Code(s): I10 - Essential (primary) hypertension Comment: Resume home BP regimen and monitor serial BP's (6) PVD (peripheral vascular disease) Code(s): I73.9 - PERIPHERAL VASCULAR DISEASE, UNSPECIFIED Status: Chronic Comment: Supportive, continue ASA 81mg daily - Plan * Acute on chronic systolic heart failure exacerbation-improved. He has diuresed well overnight * Patient developed Atrial Flutter last night, and remains in Atrial flutter now. * Possible EP consult * CAD- stable * DM- blood glucose is stable * HTN- blood pressure is stable.
[2018-11-09] MEDS: Apixaban 5 MG TAB PO SCH ×2 (11:50→20:07)
[2018-11-09 18:13] LABS: Hemoglobin 11.7 g/dL (14.0-18.0); Platelet Count 119 thou/uL (130-400)
[2018-11-09] MEDS: Atorvastatin Calcium 40 MG TAB PO SCH (20:06)
[2018-11-10] MEDS: Nitroglycerin 2% Ointment 1 INCH/1 GM Packet TOP SCH ×3 (04:56→21:18)
[2018-11-10] MEDS: Furosemide 40 MG/4 ML VIAL SLOW IVP SCH (04:57)
[2018-11-10] MEDS: Clopidogrel Bisulfate 75 MG TAB PO SCH (08:25)
[2018-11-10] MEDS: Famotidine 20 MG TAB PO SCH ×2 (08:26→20:19)
[2018-11-10] MEDS: Apixaban 5 MG TAB PO SCH ×2 (08:26→20:19)
[2018-11-10] MEDS: Tamsulosin HCl 0.4 MG CAP PO SCH (08:26)
[2018-11-10] MEDS: Aspirin 81 mg Enteric Coated Tablet PO SCH (08:26)
[2018-11-10] MEDS: Carvedilol 6.25 MG TAB PO SCH ×2 (08:26→21:18)
[2018-11-10] MEDS: Lisinopril 5 MG TAB PO SCH (08:26)
[2018-11-10 10:43] LABS: Anion Gap 12 mmol/L (10-20); BUN (Urea Nitrogen) 32 mg/dL (8.4-25.7); Calc. Creatinine Clearance 54 mL/min (70-130); Calcium 8.5 mg/dL (7.8-10.44); Carbon Dioxide 24 mmol/L (22-29); Chloride 104 mmol/L (98-107); Estimated GFR-MDRD 41; Glucose 162 mg/dL (70-105); Potassium 4.3 mmol/L (3.5-5.1); Sodium 136 mmol/L (136-145)
--- NOTE | 2018-11-10 13:07 | PDOC.PN ---
- Subjective Encounter Start Date: 11/10/18 Encounter Start Time: 11:00 Mr. Hein was seen today in follow-up of CHF exacerbation. He does not have any complaints, and is breathing better. - Objective Resuscitation Status - Order Detail: 11/08/18 09:28 Resuscitation Status Routine Resuscitation Status: FULL: Full Resuscitation Vital Signs & Weight: Vital Signs (12 hours) Temp Pulse Resp BP Pulse Ox 11/10/18 08:26 59 L 11/10/18 08:00 97.7 F 55 L 17 115/71 100 11/10/18 04:00 97.7 F 59 L 18 99/55 L 98 Weight Weight 183 lb 4 oz I&O: 11/09/18 11/10/18 11/11/18 06:59 06:59 06:59 Intake Total 240 1360 Output Total 900 2250 Balance -660 -890 Result Diagrams: 11/09/18 18:05 11/10/18 10:07 Additional Labs: Accuchecks 11/10/18 11/10/18 11/09/18 11:31 05:50 20:37 POC Glucose 110 132 H 233 H 11/09/18 16:48 POC Glucose 177 H Phys Exam - Physical Examination Respiratory: no wheezing, no rales, no rhonchi, clear to auscultation bilateral Cardiovascular: RRR, no significant murmur, no rub Gastrointestinal: soft, non-tender, no distention, positive bowel sounds Musculoskeletal: no edema, pulses present left BKA Dx/Plan (1) Acute on chronic systolic and diastolic heart failure, NYHA class 2 Code(s): I50.43 - ACUTE ON CHRONIC COMBINED SYSTOLIC AND DIASTOLIC HRT FAIL Status: Acute Comment: Mild decompensation, continue Lasix 40mg IV BID, Echo showing mild improvement in EF 30-35% (2) CAD (coronary artery disease) Code(s): I25.10 - ATHSCL HEART DISEASE OF [place] CORONARY ARTERY W/O ANG PCTRS Status: Chronic Qualifiers: Coronary Disease-Associated Artery/Lesion type: [place] artery [place] vs. transplanted heart: [place] heart Associated angina: without angina Qualified Code(s): I25.10 - Atherosclerotic heart disease of [place] coronary artery without angina pectoris Comment: Continue dual anti-platelet therapy, Lipitor, Coreg (3) COPD (chronic obstructive pulmonary disease) Status: Chronic Qualifiers: COPD type: chronic bronchitis Comment: Bronchodilators, Duonebs, Anoro Ellipta (4) DM type 2 (diabetes mellitus, type 2) Status: Chronic Qualifiers: Diabetes mellitus slide fastener repairer insulin use: with slide fastener repairer use Diabetes mellitus complication status: with kidney complications Diabetes mellitus complication detail: with chronic kidney disease Chronic kidney disease stage : stage 3 (moderate) Qualified Code(s): E11.22 - Type 2 diabetes mellitus with diabetic chronic kidney disease; N18.3 - Chronic kidney disease, stage 3 ( moderate); N18.3 - Chronic kidney disease, stage 3 (moderate); Z79.4 - lapel stitcher (current) use of insulin; Z79.4 - lapel stitcher (current) use of insulin; Z79.4 - lapel stitcher (current) use of insulin; Z79.4 - [facility] (current) use of insulin Comment: Resume Yovany, KIRSTY, serial accuchecks (5) HTN (hypertension) Code(s): I10 - ESSENTIAL (PRIMARY) HYPERTENSION Status: Chronic Qualifiers: Hypertension type: essential hypertension Qualified Code(s): I10 - Essential (primary) hypertension Comment: Resume home BP regimen and monitor serial BP's (6) PVD (peripheral vascular disease) Code(s): I73.9 - PERIPHERAL VASCULAR DISEASE, UNSPECIFIED Status: Chronic Comment: Supportive, continue ASA 81mg daily - Plan * Acute on chronic systolic heart failure- improved with diaurese * BARB- he likely has some pre-renal azotemia from diuretics- will hold Lasix today and re-check his creatinine in the am. * HTN- blood pressure is stable * DM- blood glucose is stable
[2018-11-10] MEDS: Atorvastatin Calcium 40 MG TAB PO SCH (20:19)
[2018-11-11] MEDS: Nitroglycerin 2% Ointment 1 INCH/1 GM Packet TOP SCH ×2 (04:25→13:19)
[2018-11-11] MEDS: Carvedilol 6.25 MG TAB PO SCH ×2 (08:23→20:07)
[2018-11-11] MEDS: Apixaban 5 MG TAB PO SCH ×2 (08:23→20:07)
[2018-11-11] MEDS: Tamsulosin HCl 0.4 MG CAP PO SCH (08:24)
[2018-11-11] MEDS: Clopidogrel Bisulfate 75 MG TAB PO SCH (08:24)
[2018-11-11] MEDS: Famotidine 20 MG TAB PO SCH ×2 (08:24→20:07)
[2018-11-11 08:31] LABS: Anion Gap 13 mmol/L (10-20); BUN (Urea Nitrogen) 40 mg/dL (8.4-25.7); Calc. Creatinine Clearance 55 mL/min (70-130); Calcium 8.8 mg/dL (7.8-10.44); Carbon Dioxide 24 mmol/L (22-29); Chloride 104 mmol/L (98-107); Estimated GFR-MDRD 41; Glucose 84 mg/dL (70-105); Potassium 4.3 mmol/L (3.5-5.1); Sodium 137 mmol/L (136-145)
--- NOTE | 2018-11-11 15:22 | PDOC.PN ---
- Subjective Encounter Start Date: 11/11/18 Encounter Start Time: 15:21 Mr. Hein was seen today in follow-up of CHF exacerbation. He says he does not feel as well today as he did yesterday. He says he had an episode of chest tightness, and then felt short of breath for a while. He is not sure if it has to do with his mother falling suddenly ill, and now on life support. - Objective Resuscitation Status - Order Detail: 11/08/18 09:28 Resuscitation Status Routine Resuscitation Status: FULL: Full Resuscitation MAR Reviewed: Yes Vital Signs & Weight: Vital Signs (12 hours) Temp Pulse Resp BP BP Pulse Ox 11/11/18 12:00 98.4 F 53 L 18 112/72 96 11/11/18 08:23 146/74 H 11/11/18 08:17 96 11/11/18 08:00 97.8 F 60 18 146/74 H 96 11/11/18 04:55 98 F 52 L 16 122/77 95 Weight Weight 183 lb 4 oz I&O: 11/10/18 11/11/18 11/12/18 06:59 06:59 06:59 Intake Total 1360 480 Output Total 2250 550 Balance -890 -70 Result Diagrams: 11/09/18 18:05 11/11/18 07:28 Additional Labs: Accuchecks 11/11/18 11/11/18 11/10/18 11:27 04:47 20:44 POC Glucose 125 H 99 222 H 11/10/18 16:35 POC Glucose 175 H Phys Exam - Physical Examination HEENT: PERRLA + coarse breath sounds bilaterally, and scattered rales at the bases Cardiovascular: RRR, no significant murmur, no rub Gastrointestinal: soft, non-tender, no distention, positive bowel sounds Musculoskeletal: no edema, pulses present + chronic venous stasis changes Dx/Plan (1) Acute on chronic systolic and diastolic heart failure, NYHA class 2 Code(s): I50.43 - ACUTE ON CHRONIC COMBINED SYSTOLIC AND DIASTOLIC HRT FAIL Status: Acute Comment: Mild decompensation, continue Lasix 40mg IV BID, Echo showing mild improvement in EF 30-35% (2) CAD (coronary artery disease) Code(s): I25.10 - ATHSCL HEART DISEASE OF [place] CORONARY ARTERY W/O ANG PCTRS Status: Chronic Qualifiers: Coronary Disease-Associated Artery/Lesion type: [place] artery [place] vs. transplanted heart: [place] heart Associated angina: without angina Qualified Code(s): I25.10 - Atherosclerotic heart disease of [place] coronary artery without angina pectoris Comment: Continue dual anti-platelet therapy, Lipitor, Coreg (3) COPD (chronic obstructive pulmonary disease) Status: Chronic Qualifiers: COPD type: chronic bronchitis Comment: Bronchodilators, Duonebs, Anoro Ellipta (4) DM type 2 (diabetes mellitus, type 2) Status: Chronic Qualifiers: Diabetes mellitus retirement insulin use: with retirement use Diabetes mellitus complication status: with kidney complications Diabetes mellitus complication detail: with chronic kidney disease Chronic kidney disease stage : stage 3 (moderate) Qualified Code(s): E11.22 - Type 2 diabetes mellitus with diabetic chronic kidney disease; N18.3 - Chronic kidney disease, stage 3 ( moderate); N18.3 - Chronic kidney disease, stage 3 (moderate); Z79.4 - correction (current) use of insulin; Z79.4 - correction (current) use of insulin; Z79.4 - correction (current) use of insulin; Z79.4 - terminal manager (current) use of insulin Comment: Resume Levemir, ISS, serial accuchecks (5) HTN (hypertension) Code(s): I10 - ESSENTIAL (PRIMARY) HYPERTENSION Status: Chronic Qualifiers: Hypertension type: essential hypertension Qualified Code(s): I10 - Essential (primary) hypertension Comment: Resume home BP regimen and monitor serial BP's (6) PVD (peripheral vascular disease) Code(s): I73.9 - PERIPHERAL VASCULAR DISEASE, UNSPECIFIED Status: Chronic Comment: Supportive, continue ASA 81mg daily - Plan * Acute on chronic systolic heart failure- will re-start Lasix, and give an IV dose today- he is clinically a little volume overloaded * Acute kidney injury- his renal function has stabilized- will re-check tomorrow * CAD- stable- will change him back to Ismo from nitropaste * Some of his symptoms could be related to anxiety * Hopefully home in the AM.
[2018-11-11] MEDS ORDERED: Furosemide 40 MG/4 ML VIAL SLOW IVP SCH (15:30)
[2018-11-11] MEDS: HumaLOG 300 UNITS/3 ML VIAL SC PRN (17:14)
--- NOTE | 2018-11-11 17:44 | EKG ---
Test Reason : Blood Pressure : / mmHG Vent. Rate : 078 BPM Atrial Rate : 086 BPM P-R Int : 000 ms QRS Dur : 080 ms QT Int : 396 ms P-R-T Axes : 000 053 204 degrees QTc Int : 451 ms Undetermined rhythm Abnormal ECG Confirmed by YASHIRA VINCENT ([id number]), video news editor LEOLA PARR ([id number]) on 11/11/2018 5:43:48 PM Referred By: Confirmed By:YASHIRA VINCENT
[2018-11-11] MEDS: Atorvastatin Calcium 40 MG TAB PO SCH (20:07)
[2018-11-11] MEDS: Gabapentin 400 MG CAP PO SCH (20:08)
[2018-11-11] MEDS ORDERED: Furosemide 40 MG TAB PO SCH (21:00)
[2018-11-12] MEDS: HumaLOG 300 UNITS/3 ML VIAL SC PRN ×2 (05:45→12:16)
[2018-11-12 06:34] LABS: Anion Gap 13 mmol/L (10-20); BUN (Urea Nitrogen) 43 mg/dL (8.4-25.7); Calc. Creatinine Clearance 57 mL/min (70-130); Calcium 8.7 mg/dL (7.8-10.44); Carbon Dioxide 26 mmol/L (22-29); Chloride 103 mmol/L (98-107); Estimated GFR-MDRD 43; Glucose 155 mg/dL (70-105); Potassium 4.5 mmol/L (3.5-5.1); Sodium 137 mmol/L (136-145)
[2018-11-12] MEDS: Clopidogrel Bisulfate 75 MG TAB PO SCH (07:50)
[2018-11-12] MEDS: Tamsulosin HCl 0.4 MG CAP PO SCH (07:51)
[2018-11-12] MEDS: Apixaban 5 MG TAB PO SCH (07:51)
[2018-11-12] MEDS: Gabapentin 400 MG CAP PO SCH ×2 (07:52→14:47)
[2018-11-12] MEDS: Carvedilol 6.25 MG TAB PO SCH (07:52)
[2018-11-12] MEDS: Famotidine 20 MG TAB PO SCH (07:52)
[2018-11-12] MEDS ORDERED: Furosemide 40 MG TAB PO SCH (09:00)
[2018-11-12 15:41] VITALS: BP 128/65; TEMP 98.3
--- NOTE | 2018-11-12 17:54 | DIS ---
DATE OF ADMISSION: 11/08/2018 DATE OF DISCHARGE: 11/12/2018 DISCHARGE DIAGNOSES: 1. Acute on chronic systolic congestive heart failure with ejection fraction of 30% to 35%. 2. Acute kidney injury on chronic kidney disease, stage 2. 3. Coronary artery disease, chronic and stable. 4. Chronic obstructive pulmonary disease, compensated and stable. 5. Diabetes mellitus type 2, insulin requiring, stable. 6. Hypertension, stable. 7. Peripheral vascular disease, stable. CONSULTATIONS: Dr. Yen and Dr. Mcdaniels with Cardiology Service. PERTINENT LABORATORY DATA AND X-RAY FINDINGS: Creatinine ranged between 1.02 to 1.74. Estimated GFR ranged between 41 to 75. BNP 422, previously noted 242 on 09/23/2018. CBC showed hemoglobin ranged between 11.7 to 12.3. Portable chest x-ray dated 11/07/2018, showed bilateral pulmonary edema. HOSPITAL COURSE: The patient was initially admitted after presenting with increased shortness of breath and lower extremity edema in the context of known systolic congestive heart failure with ejection fraction in the 30% to 35%range. The patient was placed on IV Lasix and monitored for clinical response. The patient's weight loss was noted approximately 8 pounds during the hospital stay, decreasing from 190 pounds to 182 pounds by the time of discharge. The patient continued to diurese and symptomatically improved, maintaining O2 saturations in the mid 90% range on room air. The patient continued on his chronic medication regimen, however, was held on his ELEUTERIO inhibitor due to acute kidney injury. The patient may need re-evaluation on an outpatient basis for resumption of his ELEUTERIO inhibitor after stabilization of renal function. Overall, the patient did remain clinically stable during the hospital course. DISCHARGE INSTRUCTIONS: I have examined the patient at the time of discharge and discussed followup instructions. The patient verbalized understanding and agreement, ready for discharge on 11/12/2018. DISCHARGE MEDICATIONS: 1. Eliquis 5 mg p.o. b.i.d. 2. Lipitor 40 mg p.o. at bedtime. 3. Carvedilol 6.25 mg p.o. b.i.d. 4. Plavix 37.5 mg p.o. daily. 5. Lasix 40 mg p.o. b.i.d. 6. Gabapentin 800 mg p.o. t.i.d. 7. Isosorbide mononitrate extended release 30 mg p.o. daily. 8. Sertraline 50 mg p.o. at bedtime. 9. Tamsulosin 0.4 mg p.o. daily. 10. ProAir respite click 90 mcg inhaled q.6 hours p.r.n. 11. Ferrous sulfate 325 mg p.o. daily. 12. Lantus 5 units subcutaneously daily. 13. DuoNeb one nebulized t.i.d. p.r.n. 14. Protonix 40 mg p.o. daily. 15. Potassium 20 mEq p.o. daily. 16. Tramadol 50 mg p.o. q.i.d. p.r.n. 17. Anoro Ellipta 62.5-25 mcg one inhalation daily. FOLLOWUP: 1. The patient may follow up with Dr. Layne on 11/15/2018 at 11:00 a.m. 2. The patient may follow up with Dr. Jace Badillo on 11/20/2018, at 2:15 p.m. 3. The patient may follow up with [facility] at [facility]. CONDITION ON DISCHARGE: Fair. ACTIVITY: Ad-skylar. DIET: Heart healthy and ADA. CODE STATUS: Full. DISPOSITION: To home, 11/12/2018. TIME SPENT: Total time preparing and coordinating discharge is 32 minutes. Job ID: [id number]
== END 2018-11-12 16:10 | disposition home health service (06) | DRG 291 ==
LOC: ERS 15:44 → ERHOLD 21:32 → 2NO 11-08 16:23 → OBSVTOIN 11-08 21:31 → T4-B 11-10 14:16
PROVIDERS: ADMIT Internal Medicine; ATTEND Internal Medicine
DX: I13.0 Hypertensive heart and chronic kidney disease with heart failure and stage 1 through stage 4 chronic kidney disease, or unspecified chronic kidney disease (principal); I50.23 Acute on chronic systolic (congestive) heart failure; N17.9 Acute kidney failure, unspecified; I48.92 Unspecified atrial flutter; E11.22 Type 2 diabetes mellitus with diabetic chronic kidney disease; N18.2 Chronic kidney disease, stage 2 (mild); I73.9 Peripheral vascular disease, unspecified; E78.5 Hyperlipidemia, unspecified; J44.9 Chronic obstructive pulmonary disease, unspecified; I25.110 Atherosclerotic heart disease of native coronary artery with unstable angina pectoris; F17.210 Nicotine dependence, cigarettes, uncomplicated; I25.5 Ischemic cardiomyopathy; Z99.81 Dependence on supplemental oxygen; Z86.73 Personal history of transient ischemic attack (TIA), and cerebral infarction without residual deficits; Z95.1 Presence of aortocoronary bypass graft; Z95.5 Presence of coronary angioplasty implant and graft; Z89.422 Acquired absence of other left toe(s); Z95.810 Presence of automatic (implantable) cardiac defibrillator; Z83.3 Family history of diabetes mellitus; Z79.02 Long term (current) use of antithrombotics/antiplatelets; Z79.82 Long term (current) use of aspirin; Z79.4 Long term (current) use of insulin; Z79.899 Other long term (current) drug therapy; Z79.51 Long term (current) use of inhaled steroids; Z82.49 Family history of ischemic heart disease and other diseases of the circulatory system
CPT/HCPCS: 36415; 36416; 71045; 80048; 80053; 82550; 82553; 83690; 83880; 84484; 85025; 93005; 93798; 94760; J1644; J1940

== ENCOUNTER 2019-02-23 05:04 | Observation (INO) | payer MEDICARE ==
[2019-02-23 05:57] LABS: #Eosinphils 0.1 thou/uL (0.0-0.7); #Monocytes 0.6 thou/uL (0.11-0.59); #Neutrophils 6.4 thou/uL (1.40-6.50); %Basophils 0.1 % (0.0-1.0); %Eosinophils 1.2 % (0.0-10.0); %Lymphocytes 12.3 % (21.0-51.0); %Monocytes 7.6 % (0.0-10.0); %Neutrophils 78.8 % (42.0-75.0); Mean Corpuscular HGB CONC 32.6 g/dL (32.0-36.0); Mean Corpuscular Hemoglobin 29.6 pg (27.0-31.0); Mean Corpuscular Volume 90.8 fL (78.0-98.0); Mean Platelet Volume 8.7 fL (7.4-10.4); Platelet Count 118 thou/uL (130-400); Platelet Morphology Comment Appears Decreased; RBC Distribution Width 13.7 % (11.5-14.5); Red Blood Cell (RBC) Count 4.38 mill/uL (4.70-6.10); White Blood Cell (WBC) Count 8.1 thou/uL (4.8-10.8)
[2019-02-23 06:00] LABS: ALT (SGPT) 11 U/L (8-55); AST (SGOT) 15 U/L (5-34); Albumin 3.2 g/dL (3.5-5.0); Alkaline Phosphatase 207 U/L (40-150); Anion Gap 12 mmol/L (10-20); BUN (Urea Nitrogen) 31 mg/dL (8.4-25.7); Bilirubin, Total 0.6 mg/dL (0.2-1.2); CK (CPK) 62 U/L (30-200); Calc. Creatinine Clearance 0 mL/min (70-130); Calcium 8.6 mg/dL (7.8-10.44); Carbon Dioxide 22 mmol/L (22-29); Chloride 105 mmol/L (98-107); Estimated GFR-MDRD 62; Globulin 4.1 g/dL (2.4-3.5); Glucose 243 mg/dL (70-105); Potassium 4.3 mmol/L (3.5-5.1); Protein, Total 7.3 g/dL (6.0-8.3); Sodium 135 mmol/L (136-145)
[2019-02-23] MEDS ORDERED: Aspirin Chewable 81 MG TAB ONE (06:03)
[2019-02-23] MEDS ORDERED: Lorazepam 2 MG/ML VIAL ONE (06:03)
[2019-02-23 06:23] LABS: CKMB 3.2 ng/mL (0-6.6)
--- NOTE | 2019-02-23 07:09 | CT ---
CT HEAD NONCONTRAST: Date: 02/23/19 COMPARISON: 03/25/12. INDICATION: Fall with head injury and pain. FINDINGS: There is no acute intracranial hemorrhage, mass effect, midline shift, or ventriculomegaly. Mild presales engineer nicholas ischemic disease of cerebral white matter is present. There is stable, partially calcified extra- axial density overlying the medial left frontal convexity, which may be related to a small, partially calcified meningioma. IMPRESSION: No acute intracranial abnormalities. POS: [place]
--- NOTE | 2019-02-23 08:09 | RAD ---
EXAM: Chest one view: HISTORY: Chest pain COMPARISON: 11/07/2018 FINDINGS: Left ICD. Heart size: Within normal limits. Lungs: Bilateral vascular congestion with increased markings bilaterally and minimal blunting the cos tophrenic angles slightly improved from prior study. No evidence for pneumonia, pleural effusion, acute edema, or pneumothorax, or other significant acute process. IMPRESSION: Bilateral vascular congestion and probable small pleural effusions, stable to slightly improved. No s ignificant new process.
[2019-02-23] MEDS ORDERED: Furosemide 40 MG/4 ML VIAL ONE (09:33)
[2019-02-23] MEDS ORDERED: Furosemide 40 MG/4 ML VIAL SLOW IVP SCH (10:00)
[2019-02-23 10:17] LABS: Troponin I 0.017 ng/mL (< 0.028)
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
[2019-02-23] MEDS ORDERED: HumaLOG 300 UNITS/3 ML VIAL SC PRN ×2 (11:37)
[2019-02-23] MEDS ORDERED: Acetaminophen 325 MG TAB PO PRN (11:37)
[2019-02-23] MEDS ORDERED: Dextrose 50% Abboject 50 ML SYRINGE SLOW IVP PRN (11:37)
[2019-02-23] MEDS ORDERED: Dextrose 5% in Water 1,000 ML IV PRN (11:37)
[2019-02-23] MEDS ORDERED: Acetaminophen 325 MG TAB ONE (11:57)
[2019-02-23 12:39] LABS: Troponin I 0.029 ng/mL (< 0.028)
[2019-02-23] MEDS ORDERED: Famotidine 20 MG TAB PO SCH (21:00)
[2019-02-23] MEDS: Lorazepam 2 MG/ML VIAL SLOW IVP PRN (23:40)
[2019-02-24 04:51] VITALS: TEMP 98.6
[2019-02-24] MEDS: Lorazepam 2 MG/ML VIAL SLOW IVP PRN (05:54)
[2019-02-24] MEDS ORDERED: Non-Formulary Item 1 EACH (Albuterol Sulfate [Proair Respiclick] 90 MCG) IH PRN (06:59)
[2019-02-24] MEDS ORDERED: Nitroglycerin 0.4 MG TAB (25 Tab Bottle) SL PRN (06:59)
[2019-02-24 07:27] VITALS: BP 133/72
--- NOTE | 2019-02-24 08:08 | PDOC.PN ---
- Subjective Encounter Start Date: 02/24/19 Encounter Start Time: 08:07 Mr. Hein was seen today in follow-up of chest pain and suicidal ideation. He is resting and much more calm this morning. He does not have any new complaints. The nursing staff have not noted any significant problems overnight. - Objective Resuscitation Status - Order Detail: 02/23/19 09:47 Resuscitation Status Routine Resuscitation Status: FULL: Full Resuscitation MAR Reviewed: Yes Vital Signs & Weight: Vital Signs (12 hours) Temp Pulse Resp BP Pulse Ox 02/24/19 07:23 98.6 F 75 17 133/72 99 02/24/19 04:00 98.6 F 70 18 133/65 98 02/23/19 22:29 97.8 F 67 18 128/67 93 L Weight Weight 177 lb 14.4 oz I&O: 02/23/19 02/24/19 02/25/19 06:59 06:59 06:59 Intake Total 281 Balance 281 Result Diagrams: 02/23/19 05:22 02/23/19 05:22 Additional Labs: Accuchecks 02/24/19 05:19 POC Glucose 233 H Phys Exam - Physical Examination HEENT: PERRLA Respiratory: no wheezing + faint rales at the bases Cardiovascular: RRR, no significant murmur, no rub Gastrointestinal: soft, non-tender, no distention, positive bowel sounds Musculoskeletal: edema present + edema at the left stump, no erythema Deviation from normal: + excoriations of the skin at the stump Dx/Plan (1) Chest pain Code(s): R07.9 - CHEST PAIN, UNSPECIFIED Status: Acute (2) Suicidal ideation Code(s): R45.851 - SUICIDAL IDEATIONS Status: Acute (3) Acute on chronic systolic and diastolic heart failure, NYHA class 2 Code(s): I50.43 - ACUTE ON CHRONIC COMBINED SYSTOLIC AND DIASTOLIC HRT FAIL Status: Acute Comment: Mild decompensation, continue Lasix 40mg IV BID, Echo showing mild improvement in EF 30-35% (4) CAD (coronary artery disease) Code(s): I25.10 - ATHSCL HEART DISEASE OF [place] CORONARY ARTERY W/O ANG PCTRS Status: Chronic Qualifiers: Coronary Disease-Associated Artery/Lesion type: [place] artery [place] vs. transplanted heart: [place] heart Associated angina: without angina Qualified Code(s): I25.10 - Atherosclerotic heart disease of [place] coronary artery without angina pectoris Comment: Continue dual anti-platelet therapy, Lipitor, Coreg (5) COPD (chronic obstructive pulmonary disease) Status: Chronic Qualifiers: COPD type: chronic bronchitis Comment: Bronchodilators, Duonebs, Anoro Ellipta (6) Depression Code(s): F32.9 - MAJOR DEPRESSIVE DISORDER, SINGLE EPISODE, UNSPECIFIED Status : Chronic Qualifiers: Depression Type: unspecified Qualified Code(s): F32.9 - Major depressive disorder, single episode, unspecified (7) HTN (hypertension) Code(s): I10 - ESSENTIAL (PRIMARY) HYPERTENSION Status: Chronic Qualifiers: Hypertension type: essential hypertension Qualified Code(s): I10 - Essential (primary) hypertension Comment: Resume home BP regimen and monitor serial BP's (8) PVD (peripheral vascular disease) Code(s): I73.9 - PERIPHERAL VASCULAR DISEASE, UNSPECIFIED Status: Chronic Comment: Supportive, continue ASA 81mg daily - Plan * Chest pain- this has improved. Likely due to mild volume overload * Acute on chronic systolic and diastolic heart failure- improved- he is breathing fine, laying flat in bed, continue is home medications * HTN- blood pressure is controlled * CAD- stable * DM- blood glucose is a bit elevated- his home medications have been restarted , as well as SSI * Depression and Suicidal ideation- he is awaiting a bed at [facility].
[2019-02-24] MEDS: Gabapentin 400 MG CAP PO SCH ×2 (08:10→14:15)
[2019-02-24] MEDS ORDERED: Furosemide 40 MG TAB PO SCH (09:00)
[2019-02-24] MEDS ORDERED: Silver Sulfadiazine 1% Cream 50 GM JAR TOP SCH (09:00)
[2019-02-24] MEDS ORDERED: traMADol HCl 50 MG TAB PO PRN (09:00)
[2019-02-24] MEDS ORDERED: Clopidogrel Bisulfate 75 MG TAB PO SCH (09:00)
[2019-02-24] MEDS ORDERED: POTASSIUM 20 MG PO SCH (09:00)
[2019-02-24] MEDS ORDERED: Tamsulosin HCl 0.4 MG CAP PO SCH (09:00)
[2019-02-24] MEDS ORDERED: Ferrous Sulfate 325 MG TAB PO SCH (09:00)
[2019-02-24] MEDS ORDERED: Carvedilol 6.25 MG TAB PO SCH (09:00)
[2019-02-24] MEDS ORDERED: Apixaban 5 MG TAB PO SCH (09:00)
[2019-02-24] MEDS ORDERED: Insulin Glargine 5 UNITS in Pre-Filled Syringe 1 EACH SC SCH (09:00)
[2019-02-24 09:24] LABS: #Eosinphils 0.1 thou/uL (0.0-0.7); #Lymphocytes 0.9 thou/uL (1.20-3.40); #Monocytes 0.6 thou/uL (0.11-0.59); #Neutrophils 5.8 thou/uL (1.40-6.50); %Basophils 0.2 % (0.0-1.0); %Eosinophils 1.3 % (0.0-10.0); %Neutrophils 78.5 % (42.0-75.0); Hemoglobin 13.2 g/dL (14.0-18.0); Mean Corpuscular HGB CONC 33.2 g/dL (32.0-36.0); Mean Corpuscular Hemoglobin 30.9 pg (27.0-31.0); Mean Corpuscular Volume 92.8 fL (78.0-98.0); Mean Platelet Volume 8.6 fL (7.4-10.4); Platelet Count 115 thou/uL (130-400); RBC Distribution Width 13.6 % (11.5-14.5); Red Blood Cell (RBC) Count 4.27 mill/uL (4.70-6.10); White Blood Cell (WBC) Count 7.4 thou/uL (4.8-10.8)
[2019-02-24 09:42] LABS: Anion Gap 9 mmol/L (10-20); BUN (Urea Nitrogen) 29 mg/dL (8.4-25.7); Calc. Creatinine Clearance 98 mL/min (70-130); Calcium 8.6 mg/dL (7.8-10.44); Carbon Dioxide 26 mmol/L (22-29); Chloride 105 mmol/L (98-107); Estimated GFR-MDRD 82; Glucose 160 mg/dL (70-105); Sodium 136 mmol/L (136-145)
[2019-02-24] MEDS ORDERED: Atorvastatin Calcium 40 MG TAB PO SCH (21:00)
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
--- NOTE | 2019-02-25 01:07 | EKG ---
Test Reason : Blood Pressure : / mmHG Vent. Rate : 081 BPM Atrial Rate : 081 BPM P-R Int : 186 ms QRS Dur : 080 ms QT Int : 378 ms P-R-T Axes : 078 041 -65 degrees QTc Int : 439 ms Normal sinus rhythm Nonspecific ST and T wave abnormality Abnormal ECG Confirmed by BELLE PUCKETT ([id number]), avid editor LEOLA PARR ([id number]) on 02/25/2019 1:07:05 AM Referred By: Confirmed By:BELLE PUCKETT
== END 2019-02-24 17:16 ==
LOC: ERS 05:04 → 2SW 06:33 → EEVIPCON 06:33 → ERHOLD 09:39 → T4-B 22:12
PROVIDERS: ADMIT Hospitalist; ATTEND Hospitalist
DX: R45.851 Suicidal ideations (principal); R45.850 Homicidal ideations; F32.9 Major depressive disorder, single episode, unspecified; R07.9 Chest pain, unspecified; I25.10 Atherosclerotic heart disease of native coronary artery without angina pectoris; E11.22 Type 2 diabetes mellitus with diabetic chronic kidney disease; N18.2 Chronic kidney disease, stage 2 (mild); I50.43 Acute on chronic combined systolic (congestive) and diastolic (congestive) heart failure; E78.5 Hyperlipidemia, unspecified; J44.9 Chronic obstructive pulmonary disease, unspecified; E11.51 Type 2 diabetes mellitus with diabetic peripheral angiopathy without gangrene; F17.210 Nicotine dependence, cigarettes, uncomplicated; F12.10 Cannabis abuse, uncomplicated; Z86.73 Personal history of transient ischemic attack (TIA), and cerebral infarction without residual deficits; Z79.02 Long term (current) use of antithrombotics/antiplatelets; Z79.01 Long term (current) use of anticoagulants; Z79.4 Long term (current) use of insulin; Z79.899 Other long term (current) drug therapy; Z95.1 Presence of aortocoronary bypass graft; Z95.5 Presence of coronary angioplasty implant and graft; Z95.810 Presence of automatic (implantable) cardiac defibrillator; Z89.421 Acquired absence of other right toe(s); Z89.512 Acquired absence of left leg below knee; Z99.81 Dependence on supplemental oxygen; Z98.890 Other specified postprocedural states; W19.XXXA Unspecified fall, initial encounter
CPT/HCPCS: 70450; 71045; 80048; 80053; 82550; 82553; 82962; 83880; 84484 ×2; 85025 ×2; 93005; 94640; 94760; 96374; 96375; 96376 ×2; 99285; G0378 ×2; 36415; 36416; J1815; J1940; J2060; J7620

== ENCOUNTER 2019-06-02 03:17 | Inpatient (IN) | payer MEDICARE ==
[2019-06-02] MEDS ORDERED: Lidocaine 1% (PF) 30 ML VIAL ONE (03:31)
[2019-06-02] MEDS ORDERED: Heparin 25,000 units/D5W 500 ML ONE (03:35)
[2019-06-02] MEDS ORDERED: Heparin 1,000 UNITS/ML VIAL ONE ×2 (03:36→03:37)
[2019-06-02] MEDS ORDERED: Heparin 10,000 UNITS/ 10 ML VIAL SLOW IVP SCH ×2 (03:45→07:30)
[2019-06-02] MEDS ORDERED: Ondansetron PF 4 MG/2 ML Vial ONE (03:51)
[2019-06-02 03:54] LABS: Mean Corpuscular Volume 95.8 fL (78.0-98.0)
[2019-06-02 03:56] LABS: ALT (SGPT) 40 U/L (8-55); AST (SGOT) 48 U/L (5-34); Albumin 3.2 g/dL (3.5-5.0); Alkaline Phosphatase 538 U/L (40-110); Anion Gap 15 mmol/L (10-20); BUN (Urea Nitrogen) 32 mg/dL (8.4-25.7); Bilirubin, Total 0.5 mg/dL (0.2-1.2); Calc. Creatinine Clearance 0 mL/min (70-130); Calcium 8.4 mg/dL (7.8-10.44); Carbon Dioxide 19 mmol/L (22-29); Chloride 103 mmol/L (98-107); Estimated GFR-MDRD 38; Globulin 3.5 g/dL (2.4-3.5); Glucose 388 mg/dL (70-105); Potassium 5.2 mmol/L (3.5-5.1); Protein, Total 6.7 g/dL (6.0-8.3); Sodium 132 mmol/L (136-145)
[2019-06-02 04:01] LABS: #Eosinphils 0.1 thou/uL (0.0-0.7); #Lymphocytes 1.1 thou/uL (1.20-3.40); #Monocytes 0.5 thou/uL (0.11-0.59); #Neutrophils 3.9 thou/uL (1.40-6.50); %Basophils 0.4 % (0.0-1.0); %Eosinophils 1.6 % (0.0-10.0); %Lymphocytes 19.4 % (21.0-51.0); %Monocytes 8.5 % (0.0-10.0); %Neutrophils 70.1 % (42.0-75.0); Mean Corpuscular HGB CONC 34.3 g/dL (32.0-36.0); Mean Corpuscular Hemoglobin 32.8 pg (27.0-31.0); Mean Platelet Volume 8.9 fL (7.4-10.4); Platelet Count 113 thou/uL (130-400); Platelet Morphology Comment Appears Decreased; RBC Distribution Width 13.3 % (11.5-14.5); Red Blood Cell (RBC) Count 3.67 mill/uL (4.70-6.10); White Blood Cell (WBC) Count 5.6 thou/uL (4.8-10.8)
--- NOTE | 2019-06-02 04:15 | CON ---
DATE OF CONSULTATION: PRIMARY BLUE LEATHER SETTER: At this institution is Dr. Isma Yen. REASON FOR ADMISSION: Chest pain. HISTORY OF PRESENT ILLNESS: Mr. Hein is a 59-year-old gentleman. He said he has had chest pain prompting this admission, brought here by ambulance. Initially, a STEMI alert was called and I came to the emergency room. The patient states he was recently at [facility]. He underwent cardiac catheterization by Dr. Jace Badillo. He said that an attempt was made to do a stent, but he said it was not feasible, that no further intervention was indicated. The patient continues to have some substernal chest pain now. The patient underwent bypass surgery 2008 x5. The patient has diffuse atherosclerotic heart disease. PAST MEDICAL HISTORY: 1. Coronary artery disease with previous surgery. 2. Previous stent implantation. 3. Hypertension. 4. Peripheral vascular disease. PAST SURGICAL HISTORY: He has had a left mycdv-pcn-asro amputation. MEDICATION: See Nursing notes. ALLERGIES: NONE. SOCIAL HISTORY: Former smoker. PHYSICAL EXAMINATION: GENERAL: This is an ill-appearing gentleman. He looks older than his age of 59. VITAL SIGNS: Blood pressure is 100/60, pulse is in the 70s, sinus. LUNGS: Clear. CARDIAC: Normal S1, normal S2. ABDOMEN: Soft and nontender. EXTREMITIES: Previous left mgorc-mdj-hyec amputation. SKIN: Warm and dry. LABORATORY DATA: Still pending. He just arrived here. EKG shows some nonspecific ST changes in V3. No other acute changes. ASSESSMENT: 1. Severe diffuse atherosclerotic heart disease. 2. Previous recent catheterization. No other intervention is feasible per the patient. PLAN: 1. Heparin will be reasonable. 2. IV nitroglycerin if blood pressure allows. Prognosis appears poor. No other intervention indicated at this point. Job ID: [id number]
[2019-06-02 04:18] LABS: CKMB 2.9 ng/mL (0-6.6)
[2019-06-02 06:16] LABS: PTT 26.5 SEC (22.9-36.1)
[2019-06-02 06:25] LABS: INR-International Normal Ratio 1.1; Prothrombin Time 14.3 SEC (12.0-14.7)
[2019-06-02 06:45] LABS: Troponin I 0.032 ng/mL (< 0.028)
[2019-06-02] MEDS ORDERED: Nitroglycerin 0.4 MG TAB (25 Tab Bottle) SL PRN (07:15)
[2019-06-02] MEDS ORDERED: Calcium Carbonate 500 MG ChewTAB PO PRN (07:18)
[2019-06-02] MEDS ORDERED: Senokot S 8.6-50 MG TAB PO PRN (07:18)
[2019-06-02] MEDS ORDERED: Bisacodyl 5 MG TAB PO PRN (07:18)
[2019-06-02] MEDS ORDERED: Acetaminophen 325 MG TAB PO PRN (07:18)
[2019-06-02] MEDS ORDERED: Dextrose 5% in Water 1,000 ML IV PRN (07:20)
[2019-06-02] MEDS ORDERED: HumaLOG 300 UNITS/3 ML VIAL SC PRN (07:20)
[2019-06-02] MEDS ORDERED: Dextrose 50% Abboject 50 ML SYRINGE SLOW IVP PRN (07:20)
--- NOTE | 2019-06-02 08:53 | RAD ---
Chest one view HISTORY: Chest pain. COMPARISON: 02/23/2019. FINDINGS: Cardiac silhouette is magnified and upper limits of normal in size. Pulmonary vasculature i s upper limits of normal and accentuated by shallow inspiration. Mediastinum is midline with postoperative changes and a single lead left subclavian cardiac defibrillator. Calcified granulomata are consistent with healed granulomatous disease. Defibrillator patch overlies the right chest. No lobar consolidation or evidence of pneumothorax. IMPRESSION: Borderline cardiomegaly and pulmonary vascular prominence. No lobar consolidation or mansi id edema.
[2019-06-02] MEDS ORDERED: Clopidogrel Bisulfate 75 MG TAB PO SCH ×2 (09:00→15:45)
[2019-06-02] MEDS: Tamsulosin HCl 0.4 MG CAP PO SCH (09:09)
[2019-06-02] MEDS: Ferrous Sulfate 325 MG TAB PO SCH (09:09)
[2019-06-02] MEDS: HumaLOG 300 UNITS/3 ML VIAL SC PRN ×3 (09:11→16:45)
[2019-06-02] MEDS: Isosorbide Mononitrate (ER) 30 MG TAB PO SCH (09:11)
[2019-06-02] MEDS: Carvedilol 6.25 MG TAB PO SCH ×2 (09:11→21:51)
[2019-06-02 11:15] LABS: Troponin I 0.012 ng/mL (< 0.028)
[2019-06-02] MEDS: Nicotine 7 MG PATCH TD SCH (11:59)
[2019-06-02] MEDS ORDERED: Aspirin 81 mg Enteric Coated Tablet PO SCH (15:00)
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
[2019-06-02] MEDS: Atorvastatin Calcium 40 MG TAB PO SCH (21:51)
[2019-06-02] MEDS: traMADol HCl 50 MG TAB PO PRN (21:52)
[2019-06-03] MEDS: traMADol HCl 50 MG TAB PO PRN ×2 (06:09→21:14)
[2019-06-03 06:25] LABS: #Eosinphils 0.1 thou/uL (0.0-0.7); #Lymphocytes 0.9 thou/uL (1.20-3.40); #Monocytes 0.3 thou/uL (0.11-0.59); #Neutrophils 3.2 thou/uL (1.40-6.50); %Basophils 0.2 % (0.0-1.0); %Lymphocytes 20.4 % (21.0-51.0); %Monocytes 6.2 % (0.0-10.0); %Neutrophils 71.1 % (42.0-75.0); Hemoglobin 11.1 g/dL (14.0-18.0); Mean Corpuscular HGB CONC 35.1 g/dL (32.0-36.0); Mean Corpuscular Hemoglobin 32.5 pg (27.0-31.0); Mean Corpuscular Volume 92.6 fL (78.0-98.0); Mean Platelet Volume 9.1 fL (7.4-10.4); Platelet Count 93 thou/uL (130-400); RBC Distribution Width 13.2 % (11.5-14.5); Red Blood Cell (RBC) Count 3.42 mill/uL (4.70-6.10); White Blood Cell (WBC) Count 4.5 thou/uL (4.8-10.8)
[2019-06-03 06:53] LABS: Anion Gap 13 mmol/L (10-20); BUN (Urea Nitrogen) 22 mg/dL (8.4-25.7); Calc. Creatinine Clearance 68 mL/min (70-130); Calcium 8.5 mg/dL (7.8-10.44); Carbon Dioxide 20 mmol/L (22-29); Chloride 103 mmol/L (98-107); Estimated GFR-MDRD 59; Glucose 267 mg/dL (70-105); Potassium 4.8 mmol/L (3.5-5.1); Sodium 131 mmol/L (136-145)
[2019-06-03] MEDS ORDERED: [UNRECOGNIZED DRUG - OTHER] IH SCH (07:00)
[2019-06-03] MEDS ORDERED: FLU VACC QS2019-20(6MOS UP)/PF 60 MCG/0.5 ML SYRINGE IM ONE (09:00)
[2019-06-03] MEDS: Insulin Glargine 5 UNITS in Pre-Filled Syringe 1 EACH SC SCH ×2 (09:14→21:17)
[2019-06-03] MEDS: Clopidogrel Bisulfate 75 MG TAB PO SCH (09:15)
[2019-06-03] MEDS: Aspirin 81 mg Enteric Coated Tablet PO SCH (09:15)
[2019-06-03] MEDS: Ferrous Sulfate 325 MG TAB PO SCH (09:15)
[2019-06-03] MEDS: Isosorbide Mononitrate (ER) 30 MG TAB PO SCH (09:15)
[2019-06-03] MEDS: Carvedilol 6.25 MG TAB PO SCH ×2 (09:15→21:13)
[2019-06-03] MEDS: Tamsulosin HCl 0.4 MG CAP PO SCH (09:16)
[2019-06-03] MEDS: HumaLOG 300 UNITS/3 ML VIAL SC PRN ×3 (09:16→17:09)
[2019-06-03] MEDS: Nicotine 7 MG PATCH TD SCH (10:16)
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
[2019-06-03] MEDS ORDERED: Gabapentin 300 MG CAP PO SCH (15:00)
[2019-06-03] MEDS: Gabapentin 400 MG CAP PO SCH ×2 (15:44→21:13)
[2019-06-03] MEDS: Ondansetron ODT 4 MG TAB PO PRN (15:46)
--- NOTE | 2019-06-03 16:02 | PDOC.HOSPP ---
- Subjective Subjective: Seen and examined. Clinically improving. No further episodes of chest pain. He is now complaining of aches and pains in his shoulders knees and feet/stumps. Asking why he is not on his gabapentin. I explained that with renal insufficiency gabapentin must be held. With renal function now normalizing to his baseline we will restart gabapentin. - Objective Vital Signs & Weight: Vital Signs (12 hours) Temp Pulse Resp BP Pulse Ox 06/03/19 15:42 97.5 F L 64 18 96/54 L 99 06/03/19 13:09 61 20 99 06/03/19 11:15 97.5 F L 63 16 106/63 98 06/03/19 07:27 97.8 F 66 17 146/72 H 98 06/03/19 07:04 65 18 100 Weight Weight 167 lb I&O: 06/02/19 06/03/19 06/04/19 06:59 06:59 06:59 Intake Total 1030 Output Total 2024 Balance -995 Result Diagrams: 06/03/19 04:56 06/03/19 04:56 Additional Labs: Accuchecks 06/03/19 06/03/19 06/02/19 10: 06:14 20:49 POC Glucose 281 H 254 H 342 H 06/02/19 06/02/19 16:44 07:15 POC Glucose 277 H 326 H Hospitalist ROS - Review of Systems All other systems reviewed; all pertinent +/- noted in HPI/Subj - Medication Medications: Active Medications Generic Name Dose Route Start Last Admin Trade Name Freq PRN Reason Stop Dose Admin Albuterol/Ipratropium 3 ml 06/02/19 12:30 06/03/19 13:09 Duoneb NEB 3 ml TID-RT YRIS Administration Aspirin 81 mg 06/03/19 09:00 06/03/19 09:15 Ecotrin PO 81 mg DAILY YRIS Administration Atorvastatin Calcium 40 mg 06/02/19 21:00 06/02/19 21:51 Lipitor PO 40 mg HS YRIS Administration Carvedilol 6.25 mg 06/02/19 09:00 06/03/19 09:15 Coreg PO 6.25 mg BID YRIS Administration Clopidogrel Bisulfate 75 mg 06/03/19 09:00 06/03/19 09:15 Plavix PO 75 mg DAILY YRIS Administration Ferrous Sulfate 325 mg 06/02/19 09:00 06/03/19 09:15 Feosol PO 325 mg DAILY YRIS Administration Gabapentin 800 mg 06/03/19 15:00 06/03/19 15:44 Neurontin PO 800 mg TID YRIS Administration Heparin Sodium (Porcine) 0 units 06/02/19 07:30 06/02/19 16:40 Heparin 1,000 Units/Ml (10 Ml) SLOW IVP 2,277 unit WILLCALL YRIS Administration Insulin Glargine 5 units/ 0.05 mls @ 0 mls/hr 06/03/19 09:00 06/03/19 09:14 Miscellaneous Medication SC 0.05 mls BID YRIS Administration Insulin Human Lispro 0 units 06/02/19 07:20 06/02/19 21:56 Humalog SC 4 unit .BEDTIME SLIDING SC PRN Administration Bedtime Correctional Scale Insulin Human Lispro 0 units 06/03/19 07:10 06/03/19 11:40 Humalog SC 9 unit .AGGRESSIVE SLIDING PRN Administration Aggressive Correctional Scale Isosorbide Mononitrate 30 mg 06/02/19 09:00 06/03/19 09:15 Imdur Er PO 30 mg DAILY YRIS Administration Nicotine 7 mg 06/02/19 10:15 06/03/19 10:16 Nicoderm Patch TD 7 mg Q24HR YRIS Administration Ondansetron HCl 4 mg 06/02/19 07:18 06/03/19 15:46 Zofran Odt PO 4 mg Q6H PRN Administration Nausea/Vomiting Pantoprazole Sodium 40 mg 06/02/19 09:00 06/03/19 09:15 Protonix PO 40 mg DAILY YRIS Administration Ranolazine 1,000 mg 06/02/19 21:00 06/03/19 09:15 Ranexa PO 1,000 mg BID YRIS Administration Sertraline HCl 50 mg 06/02/19 21:00 06/02/19 21:51 Zoloft PO 50 mg HS YRIS Administration Sodium Chloride 10 ml 06/02/19 09:00 06/03/19 09:16 Flush - Normal Saline IVF 10 ml Q12HR YRIS Administration Tamsulosin HCl 0.4 mg 06/02/19 09:00 06/03/19 09:16 Flomax PO 0.4 mg DAILY YRIS Administration Tramadol HCl 50 mg 06/02/19 07:15 06/03/19 06:09 Ultram PO 50 mg QID PRN Administration Moderate Pain (4-6) - Exam General Appearance: NAD, awake alert Eye: PERRL ENT: normocephalic atraumatic, moist mucosa Neck: supple, symmetric, no lymphadenopathy Heart: RRR, no murmur, normal peripheral pulses Respiratory: CTAB, no wheezes, no rales, normal chest expansion Gastrointestinal: soft, non-tender, no guarding, no rigidity Extremities: no edema Extremities - other findings: Left BKA, right ray amputation all 5 digits Skin: no rashes Neurological: cranial nerve grossly intact, no new deficit Neurological - other findings: Right hand flexion contractures from CVA Musculoskeletal: generalized weakness Psychiatric: normal affect, A&O x 3 Hosp A/P (1) NSTEMI (non-ST elevated myocardial infarction) Code(s): I21.4 - NON-ST ELEVATION (NSTEMI) MYOCARDIAL INFARCTION Status: Acute (2) CAD (coronary artery disease) Code(s): I25.10 - ATHSCL HEART DISEASE OF [place] CORONARY ARTERY W/O ANG PCTRS Status: Acute (3) Angina at rest Code(s): I20.8 - OTHER FORMS OF ANGINA PECTORIS Status: Acute (4) Acute on chronic systolic and diastolic heart failure, NYHA class 2 Code(s): I50.43 - ACUTE ON CHRONIC COMBINED SYSTOLIC AND DIASTOLIC HRT FAIL Status: Acute (5) CHF (congestive heart failure) Code(s): I50.9 - HEART FAILURE, UNSPECIFIED Status: Acute Qualifiers: Qualified Code(s): I50.23 - Acute on chronic systolic (congestive) heart failure (6) Abnormal cardiac enzyme level Code(s): R74.8 - ABNORMAL LEVELS OF OTHER SERUM ENZYMES Status: Chronic (7) Anxiety Code(s): F41.9 - ANXIETY DISORDER, UNSPECIFIED Status: Chronic (8) COPD (chronic obstructive pulmonary disease) Status: Chronic Qualifiers: COPD type: chronic bronchitis (9) Chest pain Code(s): R07.9 - CHEST PAIN, UNSPECIFIED Status: Chronic (10) DM type 2 (diabetes mellitus, type 2) Status: Chronic Qualifiers: Diabetes mellitus chcf insulin use: with exterminator helper use Diabetes mellitus complication status: with kidney complications Diabetes mellitus complication detail: with chronic kidney disease Chronic kidney disease stage : stage 3 (moderate) Qualified Code(s): E11.22 - Type 2 diabetes mellitus with diabetic chronic kidney disease; N18.3 - Chronic kidney disease, stage 3 ( moderate); N18.3 - Chronic kidney disease, stage 3 (moderate); Z79.4 - assisted (current) use of insulin; Z79.4 - assisted (current) use of insulin; Z79.4 - assisted (current) use of insulin; Z79.4 - assisted (current) use of insulin (11) Depression Code(s): F32.9 - MAJOR DEPRESSIVE DISORDER, SINGLE EPISODE, UNSPECIFIED Status : Chronic Qualifiers: Depression Type: unspecified Qualified Code(s): F32.9 - Major depressive disorder, single episode, unspecified (12) Dyslipidemia Code(s): E78.5 - HYPERLIPIDEMIA, UNSPECIFIED Status: Chronic (13) HLD (hyperlipidemia) Code(s): E78.5 - HYPERLIPIDEMIA, UNSPECIFIED Status: Chronic Qualifiers: Hyperlipidemia type: unspecified Qualified Code(s): E78.5 - Hyperlipidemia , unspecified (14) HTN (hypertension) Code(s): I10 - ESSENTIAL (PRIMARY) HYPERTENSION Status: Chronic Qualifiers: Hypertension type: essential hypertension Qualified Code(s): I10 - Essential (primary) hypertension (15) History of left below knee amputation Code(s): Z89.512 - ACQUIRED ABSENCE OF LEFT LEG BELOW KNEE Status: Chronic (16) Ischemic cardiomyopathy Code(s): I25.5 - ISCHEMIC CARDIOMYOPATHY Status: Chronic (17) PVD (peripheral vascular disease) Code(s): I73.9 - PERIPHERAL VASCULAR DISEASE, UNSPECIFIED Status: Chronic - Plan Plan: medical unit with telemetry cardiology consultation, recommendations appreciated nephrology consultation, recommendations appreciated heparin drip per cardiology further plan of care per cardiology cardiomyopathy regimen is needed continue Ranexa for long-acting control of chest pain insulin sliding-scale for glucose coverage, start long-acting insulin replace electrolytes as needed nicotine patch acute kidney injury has resolved with conservative management patient was recently recommended medical management alone for coronary artery disease
--- NOTE | 2019-06-03 20:03 | PRG ---
DATE OF SERVICE: 06/03/2019 SUBJECTIVE: Mr. Hein continues to have chest pain, but it is somewhat better today. OBJECTIVE: VITAL SIGNS: His blood pressure 96/54, pulse 64 and regular. LUNGS: Clear. CARDIAC: Normal S1 and normal S2. ASSESSMENT: Severe coronary artery disease. PLAN: According to the patient, he had a catheterization at [facility] recently showing nothing else feasible. Those records are not yet available to us. Dr. Yen will return tomorrow to assume the patient's care. Hopefully, records can be obtained from the [facility] graphic illustrator. Job ID: [id number]
[2019-06-03] MEDS: Atorvastatin Calcium 40 MG TAB PO SCH (21:13)
[2019-06-03] MEDS: Ondansetron PF 4 MG/2 ML Vial IVP PRN (21:19)
[2019-06-03] MEDS: HYDROcodone/Acetaminophen 5/325 mg Tablet PO PRN (22:51)
[2019-06-04] MEDS: Heparin 25,000 units/D5W 500 ML IV SCH (02:37)
[2019-06-04] MEDS: HYDROcodone/Acetaminophen 5/325 mg Tablet PO PRN ×3 (05:01→21:07)
[2019-06-04] MEDS: Ondansetron PF 4 MG/2 ML Vial IVP PRN (05:01)
[2019-06-04] MEDS: HumaLOG 300 UNITS/3 ML VIAL SC PRN ×3 (09:21→17:13)
[2019-06-04] MEDS: Insulin Glargine 8 UNITS in Pre-Filled Syringe 1 EACH SC SCH ×2 (09:21→21:10)
[2019-06-04] MEDS: Aspirin 81 mg Enteric Coated Tablet PO SCH (09:22)
[2019-06-04] MEDS: Isosorbide Mononitrate (ER) 30 MG TAB PO SCH (09:22)
[2019-06-04] MEDS: Ferrous Sulfate 325 MG TAB PO SCH (09:22)
[2019-06-04] MEDS: Tamsulosin HCl 0.4 MG CAP PO SCH (09:22)
[2019-06-04] MEDS: Clopidogrel Bisulfate 75 MG TAB PO SCH (09:22)
[2019-06-04] MEDS: Carvedilol 6.25 MG TAB PO SCH ×2 (09:23→21:04)
[2019-06-04] MEDS: Gabapentin 400 MG CAP PO SCH ×3 (09:23→21:04)
[2019-06-04] MEDS: Nicotine 7 MG PATCH TD SCH (12:05)
--- NOTE | 2019-06-04 13:38 | PDOC.HOSPP ---
- Subjective Subjective: Seen and examined. Patient still with chest pain and mild shortness of breath and states that it feels like something heavy is sitting on his chest. Further plan of care per cardiology. Remains on heparin drip. Pending records from [facility]. - Objective Vital Signs & Weight: Vital Signs (12 hours) Temp Pulse Pulse Pulse Resp BP BP 06/04/19 11:47 98.1 F 67 15 06/04/19 11:05 61 71 113/55 L 137/72 06/04/19 09:16 98.1 F 66 19 06/04/19 06:38 63 18 06/04/19 04:00 98.5 F 64 20 BP Pulse Ox 06/04/19 11:47 113/55 L 97 06/04/19 11:05 06/04/19 09:16 112/60 96 06/04/19 06:38 100 06/04/19 04:00 107/67 100 Weight Admit Weight 167 lb Weight 166 lb 14.4 oz I&O: 06/03/19 06/04/19 06/05/19 06:59 06:59 06:59 Intake Total 1030 1626 Output Total 5 1050 Balance -995 576 Result Diagrams: 06/03/19 04:56 06/03/19 04:56 Additional Labs: Accuchecks 06/04/19 06/04/19 06/03/19 13:13 05:11 19:37 POC Glucose 193 H 233 H 174 H 06/03/19 16:53 POC Glucose 194 H Hospitalist ROS - Review of Systems All other systems reviewed; all pertinent +/- noted in HPI/Subj - Medication Medications: Active Medications Generic Name Dose Route Start Last Admin Trade Name Freq PRN Reason Stop Dose Admin Hydrocodone Bitart/Acetaminophen 1 tab 06/03/19 09:10 06/04/19 12:05 [place] 5/325 PO 1 tab Q4H PRN Administration Moderate to Severe Pain (6-10) Albuterol/Ipratropium 3 ml 06/02/19 12:30 06/04/19 06:38 Duoneb NEB 3 ml TID-RT YRIS Administration Aspirin 81 mg 06/03/19 09:00 06/04/19 09:22 Ecotrin PO 81 mg DAILY YRIS Administration Atorvastatin Calcium 40 mg 06/02/19 21:00 06/03/19 21:13 Lipitor PO 40 mg HS YRIS Administration Carvedilol 6.25 mg 06/02/19 09:00 06/04/19 09:23 Coreg PO 6.25 mg BID YRIS Administration Clopidogrel Bisulfate 75 mg 06/03/19 09:00 06/04/19 09:22 Plavix PO 75 mg DAILY YRIS Administration Ferrous Sulfate 325 mg 06/02/19 09:00 06/04/19 09:22 Feosol PO 325 mg DAILY YRIS Administration Gabapentin 800 mg 06/03/19 15:00 06/04/19 09:23 Neurontin PO 800 mg TID YRIS Administration Heparin Sodium (Porcine) 0 units 06/02/19 07:30 06/02/19 16:40 Heparin 1,000 Units/Ml (10 Ml) SLOW IVP 2,277 unit WILLCALL YRIS Administration Heparin Sodium/Dextrose 500 mls @ 0 mls/hr 06/02/19 07:30 06/04/19 02:37 Heparin 25,000 Units/D5w 500 Ml IV 500 mls INF YRIS Administration Protocol As Directed Insulin Glargine 8 units/ 0.08 mls @ 0 mls/hr 06/04/19 09:00 06/04/19 09:21 Miscellaneous Medication SC 0.08 mls BID YRIS Administration Insulin Human Lispro 0 units 06/02/19 07:20 06/02/19 21:56 Humalog SC 4 unit .BEDTIME SLIDING SC PRN Administration Bedtime Correctional Scale Insulin Human Lispro 0 units 06/03/19 07:10 06/04/19 13:16 Humalog SC 3 unit .AGGRESSIVE SLIDING PRN Administration Aggressive Correctional Scale Isosorbide Mononitrate 30 mg 06/02/19 09:00 06/04/19 09:22 Imdur Er PO 30 mg DAILY YRIS Administration Nicotine 7 mg 06/02/19 10:15 06/04/19 12:05 Nicoderm Patch TD 7 mg Q24HR YRIS Administration Ondansetron HCl 4 mg 06/02/19 07:18 06/03/19 15:46 Zofran Odt PO 4 mg Q6H PRN Administration Nausea/Vomiting Ondansetron HCl 4 mg 06/02/19 07:18 06/04/19 05:01 Zofran IVP 4 mg Q6H PRN Administration Nausea/Vomiting Pantoprazole Sodium 40 mg 06/02/19 09:00 06/04/19 09:24 Protonix PO 40 mg DAILY YRIS Administration Ranolazine 1,000 mg 06/02/19 21:00 06/04/19 09:22 Ranexa PO 1,000 mg BID YRIS Administration Sertraline HCl 50 mg 06/02/19 21:00 06/03/19 21:13 Zoloft PO 50 mg HS YRIS Administration Sodium Chloride 10 ml 06/02/19 09:00 06/04/19 09:25 Flush - Normal Saline IVF Not Given Q12HR YRIS Tamsulosin HCl 0.4 mg 06/02/19 09:00 06/04/19 09:22 Flomax PO 0.4 mg DAILY YRIS Administration Tramadol HCl 50 mg 06/02/19 07:15 06/03/19 21:14 Ultram PO 50 mg QID PRN Administration Moderate Pain (4-6) - Exam General Appearance: NAD, awake alert Eye: anicteric sclera ENT: normocephalic atraumatic, moist mucosa Neck: supple, symmetric, no lymphadenopathy Heart: no murmur, no gallops, no rubs Respiratory: CTAB, no wheezes, no rales, no ronchi Gastrointestinal: soft, non-tender, normal bowel sounds, no palpable masses, no guarding, no rigidity Extremities: no edema Skin: no lesions, no rashes Neurological: cranial nerve grossly intact, no focal deficits Musculoskeletal: no muscle wasting Psychiatric: normal affect, A&O x 3 Hosp A/P (1) NSTEMI (non-ST elevated myocardial infarction) Code(s): I21.4 - NON-ST ELEVATION (NSTEMI) MYOCARDIAL INFARCTION Status: Acute (2) CAD (coronary artery disease) Code(s): I25.10 - ATHSCL HEART DISEASE OF [place] CORONARY ARTERY W/O ANG PCTRS Status: Acute (3) Angina at rest Code(s): I20.8 - OTHER FORMS OF ANGINA PECTORIS Status: Acute (4) Acute on chronic systolic and diastolic heart failure, NYHA class 2 Code(s): I50.43 - ACUTE ON CHRONIC COMBINED SYSTOLIC AND DIASTOLIC HRT FAIL Status: Acute (5) CHF (congestive heart failure) Code(s): I50.9 - HEART FAILURE, UNSPECIFIED Status: Acute Qualifiers: Qualified Code(s): I50.23 - Acute on chronic systolic (congestive) heart failure (6) Abnormal cardiac enzyme level Code(s): R74.8 - ABNORMAL LEVELS OF OTHER SERUM ENZYMES Status: Chronic (7) Anxiety Code(s): F41.9 - ANXIETY DISORDER, UNSPECIFIED Status: Chronic (8) COPD (chronic obstructive pulmonary disease) Status: Chronic Qualifiers: COPD type: chronic bronchitis (9) Chest pain Code(s): R07.9 - CHEST PAIN, UNSPECIFIED Status: Chronic (10) DM type 2 (diabetes mellitus, type 2) Status: Chronic Qualifiers: Diabetes mellitus intermediate project manager insulin use: with intermediate project manager use Diabetes mellitus complication status: with kidney complications Diabetes mellitus complication detail: with chronic kidney disease Chronic kidney disease stage : stage 3 (moderate) Qualified Code(s): E11.22 - Type 2 diabetes mellitus with diabetic chronic kidney disease; N18.3 - Chronic kidney disease, stage 3 ( moderate); N18.3 - Chronic kidney disease, stage 3 (moderate); Z79.4 - residential (current) use of insulin; Z79.4 - terminal clerk (current) use of insulin; Z79.4 - terminal clerk (current) use of insulin; Z79.4 - residential (current) use of insulin (11) Depression Code(s): F32.9 - MAJOR DEPRESSIVE DISORDER, SINGLE EPISODE, UNSPECIFIED Status : Chronic Qualifiers: Depression Type: unspecified Qualified Code(s): F32.9 - Major depressive disorder, single episode, unspecified (12) Dyslipidemia Code(s): E78.5 - HYPERLIPIDEMIA, UNSPECIFIED Status: Chronic (13) HLD (hyperlipidemia) Code(s): E78.5 - HYPERLIPIDEMIA, UNSPECIFIED Status: Chronic Qualifiers: Hyperlipidemia type: unspecified Qualified Code(s): E78.5 - Hyperlipidemia , unspecified (14) HTN (hypertension) Code(s): I10 - ESSENTIAL (PRIMARY) HYPERTENSION Status: Chronic Qualifiers: Hypertension type: essential hypertension Qualified Code(s): I10 - Essential (primary) hypertension (15) History of left below knee amputation Code(s): Z89.512 - ACQUIRED ABSENCE OF LEFT LEG BELOW KNEE Status: Chronic (16) Ischemic cardiomyopathy Code(s): I25.5 - ISCHEMIC CARDIOMYOPATHY Status: Chronic (17) PVD (peripheral vascular disease) Code(s): I73.9 - PERIPHERAL VASCULAR DISEASE, UNSPECIFIED Status: Chronic - Plan Plan: medical unit with telemetry cardiology consultation, recommendations appreciated nephrology consultation, recommendations appreciated heparin drip per cardiology further plan of care per cardiology cardiomyopathy regimen is needed continue Ranexa for long-acting control of chest pain insulin sliding-scale for glucose coverage, start long-acting insulin replace electrolytes as needed nicotine patch acute kidney injury has resolved with conservative management patient was recently recommended medical management alone for coronary artery disease
[2019-06-04] MEDS: Atorvastatin Calcium 40 MG TAB PO SCH (21:04)
[2019-06-05] MEDS: HYDROcodone/Acetaminophen 5/325 mg Tablet PO PRN ×4 (02:03→20:23)
[2019-06-05] MEDS: Heparin 25,000 units/D5W 500 ML IV SCH (03:34)
[2019-06-05 05:39] LABS: PTT 126.2 SEC (22.9-36.1)
[2019-06-05] MEDS: Isosorbide Mononitrate (ER) 30 MG TAB PO SCH (08:58)
[2019-06-05] MEDS: Aspirin 81 mg Enteric Coated Tablet PO SCH (08:58)
[2019-06-05] MEDS: Gabapentin 400 MG CAP PO SCH ×3 (08:58→20:21)
[2019-06-05] MEDS: Ferrous Sulfate 325 MG TAB PO SCH (08:59)
[2019-06-05] MEDS: Carvedilol 6.25 MG TAB PO SCH ×2 (08:59→20:21)
[2019-06-05] MEDS: Tamsulosin HCl 0.4 MG CAP PO SCH (08:59)
[2019-06-05] MEDS: Clopidogrel Bisulfate 75 MG TAB PO SCH (08:59)
[2019-06-05] MEDS: Insulin Glargine 8 UNITS in Pre-Filled Syringe 1 EACH SC SCH ×2 (08:59→20:21)
[2019-06-05] MEDS: HumaLOG 300 UNITS/3 ML VIAL SC PRN ×2 (09:00→12:46)
[2019-06-05] MEDS: Nicotine 7 MG PATCH TD SCH (09:05)
--- NOTE | 2019-06-05 14:31 | PDOC.HOSPP ---
- Subjective Subjective: Seen and examined. Clinically unchanged. Still describes chest discomfort with a crushing sensation, however he states that it is improved since he is on Ranexa. Aches and pains with this whether he thinks his arthritis is acting up. Neuropathy is improved on gabapentin. - Objective Vital Signs & Weight: Vital Signs (12 hours) Temp Pulse Pulse Pulse Resp BP BP 06/05/19 14:09 64 16 06/05/19 11:46 69 63 105/51 L 125/60 06/05/19 11:21 97.4 F L 64 16 06/05/19 09:06 72 77 129/74 120/58 L 06/05/19 07:18 98.1 F 71 20 06/05/19 07:03 71 16 06/05/19 04:00 98.2 F 67 14 BP Pulse Ox Pulse Ox Pulse Ox 06/05/19 14:09 97 06/05/19 11:46 98 98 06/05/19 11:21 135/68 95 06/05/19 09:06 06/05/19 07:18 109/62 95 06/05/19 07:03 98 06/05/19 04:00 117/59 L 97 Weight Admit Weight 167 lb Weight 167 lb 1.6 oz I&O: 06/04/19 06/05/19 06/06/19 06:59 06:59 06:59 Intake Total 1626 1250 Output Total 1050 840 Balance 576 410 Result Diagrams: 06/03/19 04:56 06/03/19 04:56 Additional Labs: Accuchecks 06/05/19 06/05/19 06/04/19 11:26 05:29 21:14 POC Glucose 222 H 181 H 207 H 06/04/19 17:15 POC Glucose 200 H Hospitalist ROS - Review of Systems All other systems reviewed; all pertinent +/- noted in HPI/Subj - Medication Medications: Active Medications Generic Name Dose Route Start Last Admin Trade Name Freq PRN Reason Stop Dose Admin Hydrocodone Bitart/Acetaminophen 1 tab 06/03/19 09:10 06/05/19 10:30 [place] 5/325 PO 1 tab Q4H PRN Administration Moderate to Severe Pain (6-10) Albuterol/Ipratropium 3 ml 06/02/19 12:30 06/05/19 14:09 Duoneb NEB 3 ml TID-RT YRIS Administration Aspirin 81 mg 06/03/19 09:00 06/05/19 08:58 Ecotrin PO 81 mg DAILY YRIS Administration Atorvastatin Calcium 40 mg 06/02/19 21:00 06/04/19 21:04 Lipitor PO 40 mg HS YRIS Administration Carvedilol 6.25 mg 06/02/19 09:00 06/05/19 08:59 Coreg PO 6.25 mg BID YRIS Administration Clopidogrel Bisulfate 75 mg 06/03/19 09:00 06/05/19 08:59 Plavix PO 75 mg DAILY YRIS Administration Ferrous Sulfate 325 mg 06/02/19 09:00 06/05/19 08:59 Feosol PO 325 mg DAILY YRIS Administration Gabapentin 800 mg 06/03/19 15:00 06/05/19 08:58 Neurontin PO 800 mg TID YRIS Administration Heparin Sodium (Porcine) 0 units 06/02/19 07:30 06/02/19 16:40 Heparin 1,000 Units/Ml (10 Ml) SLOW IVP 2,277 unit WILLCALL YRIS Administration Insulin Glargine 8 units/ 0.08 mls @ 0 mls/hr 06/04/19 09:00 06/05/19 08:59 Miscellaneous Medication SC 0.08 mls BID YRIS Administration Insulin Human Lispro 0 units 06/02/19 07:20 06/02/19 21:56 Humalog SC 4 unit .BEDTIME SLIDING SC PRN Administration Bedtime Correctional Scale Insulin Human Lispro 0 units 06/03/19 07:10 06/05/19 12:46 Humalog SC 6 unit .AGGRESSIVE SLIDING PRN Administration Aggressive Correctional Scale Isosorbide Mononitrate 30 mg 06/02/19 09:00 06/05/19 08:58 Imdur Er PO 30 mg DAILY YRIS Administration Nicotine 7 mg 06/02/19 10:15 06/05/19 09:05 Nicoderm Patch TD 7 mg Q24HR YRIS Administration Ondansetron HCl 4 mg 06/02/19 07:18 06/03/19 15:46 Zofran Odt PO 4 mg Q6H PRN Administration Nausea/Vomiting Ondansetron HCl 4 mg 06/02/19 07:18 06/04/19 05:01 Zofran IVP 4 mg Q6H PRN Administration Nausea/Vomiting Pantoprazole Sodium 40 mg 06/02/19 09:00 06/05/19 08:59 Protonix PO 40 mg DAILY YRIS Administration Ranolazine 1,000 mg 06/02/19 21:00 06/05/19 08:58 Ranexa PO 1,000 mg BID YRIS Administration Sertraline HCl 50 mg 06/02/19 21:00 06/04/19 21:05 Zoloft PO 50 mg HS YRIS Administration Sodium Chloride 10 ml 06/02/19 09:00 06/05/19 09:04 Flush - Normal Saline IVF 10 ml Q12HR YRIS Administration Tamsulosin HCl 0.4 mg 06/02/19 09:00 06/05/19 08:59 Flomax PO 0.4 mg DAILY YRIS Administration Tramadol HCl 50 mg 06/02/19 07:15 06/03/19 21:14 Ultram PO 50 mg QID PRN Administration Moderate Pain (4-6) - Exam General Appearance: NAD, awake alert Eye: anicteric sclera ENT: normocephalic atraumatic, moist mucosa Neck: supple, no lymphadenopathy Heart: no murmur, no gallops, no rubs Respiratory: CTAB, no wheezes, no rales, normal chest expansion, no tachypnea Gastrointestinal: soft, non-tender, no guarding, no rigidity Extremities: no edema Skin: no lesions, no rashes Neurological: cranial nerve grossly intact, no new deficit Neurological - other findings: Right hand flexion contractures Musculoskeletal: generalized weakness Psychiatric: normal affect, A&O x 3 Hosp A/P (1) NSTEMI (non-ST elevated myocardial infarction) Code(s): I21.4 - NON-ST ELEVATION (NSTEMI) MYOCARDIAL INFARCTION Status: Acute (2) CAD (coronary artery disease) Code(s): I25.10 - ATHSCL HEART DISEASE OF [place] CORONARY ARTERY W/O ANG PCTRS Status: Acute (3) Angina at rest Code(s): I20.8 - OTHER FORMS OF ANGINA PECTORIS Status: Acute (4) Acute on chronic systolic and diastolic heart failure, NYHA class 2 Code(s): I50.43 - ACUTE ON CHRONIC COMBINED SYSTOLIC AND DIASTOLIC HRT FAIL Status: Acute (5) CHF (congestive heart failure) Code(s): I50.9 - HEART FAILURE, UNSPECIFIED Status: Acute Qualifiers: Qualified Code(s): I50.23 - Acute on chronic systolic (congestive) heart failure (6) Abnormal cardiac enzyme level Code(s): R74.8 - ABNORMAL LEVELS OF OTHER SERUM ENZYMES Status: Chronic (7) Anxiety Code(s): F41.9 - ANXIETY DISORDER, UNSPECIFIED Status: Chronic (8) COPD (chronic obstructive pulmonary disease) Status: Chronic Qualifiers: COPD type: chronic bronchitis (9) Chest pain Code(s): R07.9 - CHEST PAIN, UNSPECIFIED Status: Chronic (10) DM type 2 (diabetes mellitus, type 2) Status: Chronic Qualifiers: Diabetes mellitus halfway insulin use: with terminal clerk use Diabetes mellitus complication status: with kidney complications Diabetes mellitus complication detail: with chronic kidney disease Chronic kidney disease stage : stage 3 (moderate) Qualified Code(s): E11.22 - Type 2 diabetes mellitus with diabetic chronic kidney disease; N18.3 - Chronic kidney disease, stage 3 ( moderate); N18.3 - Chronic kidney disease, stage 3 (moderate); Z79.4 - intermediate school teacher (current) use of insulin; Z79.4 - intermediate school teacher (current) use of insulin; Z79.4 - intermediate school teacher (current) use of insulin; Z79.4 - residential (current) use of insulin (11) Depression Code(s): F32.9 - MAJOR DEPRESSIVE DISORDER, SINGLE EPISODE, UNSPECIFIED Status : Chronic Qualifiers: Depression Type: unspecified Qualified Code(s): F32.9 - Major depressive disorder, single episode, unspecified (12) Dyslipidemia Code(s): E78.5 - HYPERLIPIDEMIA, UNSPECIFIED Status: Chronic (13) HLD (hyperlipidemia) Code(s): E78.5 - HYPERLIPIDEMIA, UNSPECIFIED Status: Chronic Qualifiers: Hyperlipidemia type: unspecified Qualified Code(s): E78.5 - Hyperlipidemia , unspecified (14) HTN (hypertension) Code(s): I10 - ESSENTIAL (PRIMARY) HYPERTENSION Status: Chronic Qualifiers: Hypertension type: essential hypertension Qualified Code(s): I10 - Essential (primary) hypertension (15) History of left below knee amputation Code(s): Z89.512 - ACQUIRED ABSENCE OF LEFT LEG BELOW KNEE Status: Chronic (16) Ischemic cardiomyopathy Code(s): I25.5 - ISCHEMIC CARDIOMYOPATHY Status: Chronic (17) PVD (peripheral vascular disease) Code(s): I73.9 - PERIPHERAL VASCULAR DISEASE, UNSPECIFIED Status: Chronic - Plan Plan: medical unit with telemetry cardiology consultation, recommendations appreciated nephrology consultation, recommendations appreciated heparin drip per cardiology, plan to D/c when ok with cardiology further plan of care per cardiology cardiomyopathy regimen as able continue Ranexa for long-acting control of chest pain insulin sliding-scale for glucose coverage, start long-acting insulin replace electrolytes as needed nicotine patch acute kidney injury has resolved with conservative management patient was recently recommended medical management alone for coronary artery disease
[2019-06-05] MEDS: Atorvastatin Calcium 40 MG TAB PO SCH (20:21)
--- NOTE | 2019-06-05 21:34 | CT ---
CT Brain WO Con: 06/05/2019 9:06 PM CLINICAL HISTORY: Blurred vision. COMPARISON: 02/23/2019 FINDINGS: Hemorrhage: None. Ventricular system: Normal in size and morphology for the patient's age. Cerebral parenchyma: Mild chronic microvascular ischemic disease. Midline shift: None. Mass: No mass effect. Calvarium: Normal. Visualized Paranasal sinuses: Clear. IMPRESSION: No acute intracranial abnormalities.
[2019-06-06] MEDS ORDERED: Meclizine HCl 25 MG TAB PO PRN (08:25)
[2019-06-06] MEDS: Carvedilol 6.25 MG TAB PO SCH ×2 (08:47→21:20)
[2019-06-06] MEDS: Insulin Glargine 8 UNITS in Pre-Filled Syringe 1 EACH SC SCH ×2 (08:47→21:27)
[2019-06-06] MEDS: Aspirin 81 mg Enteric Coated Tablet PO SCH (08:47)
[2019-06-06] MEDS: Ferrous Sulfate 325 MG TAB PO SCH (08:48)
[2019-06-06] MEDS: Clopidogrel Bisulfate 75 MG TAB PO SCH (08:48)
[2019-06-06] MEDS: Tamsulosin HCl 0.4 MG CAP PO SCH (08:48)
[2019-06-06] MEDS: Gabapentin 400 MG CAP PO SCH ×3 (08:48→21:20)
[2019-06-06] MEDS: Isosorbide Mononitrate (ER) 30 MG TAB PO SCH (08:48)
[2019-06-06] MEDS: Ondansetron ODT 4 MG TAB PO PRN (08:48)
[2019-06-06] MEDS: HumaLOG 300 UNITS/3 ML VIAL SC PRN ×2 (08:49→11:39)
[2019-06-06] MEDS: traMADol HCl 50 MG TAB PO PRN (08:55)
--- NOTE | 2019-06-06 12:42 | PDOC.HOSPP ---
- Subjective Subjective: Seen and examined. Patient describes episode of acute onset of double vision and dizziness that started last night. Patient had a CT scan of the head that did not demonstrate any acute abnormalities. The patient with history of to prior cerebrovascular accident, peripheral arterial disease including carotid endarterectomy on the right in addition to blockage and stenosis on the left, and uncontrolled insulin-dependent diabetes mellitus is elevated risk for further CVA. MRI of the brain ordered. Neurology consultation requested. Patient has no worsening of focal neurologic deficits though he does have flexion contractures on his right hand at baseline. - Objective Vital Signs & Weight: Vital Signs (12 hours) Temp Pulse Resp BP Pulse Ox 06/06/19 11:35 97.6 F 61 18 119/66 97 06/06/19 07:45 98.5 F 66 16 134/77 97 06/06/19 07:02 61 14 96 06/06/19 04:00 97.9 F 61 16 114/62 97 Weight Admit Weight 167 lb Weight 169 lb 14.4 oz I&O: 06/05/19 06/06/19 06/07/19 06:59 06:59 06:59 Intake Total 1250 870 Output Total 840 1100 Balance 410 -230 Result Diagrams: 06/03/19 04:56 06/03/19 04:56 Additional Labs: Accuchecks 06/06/19 06/06/19 06/05/19 11:37 05:50 20:07 POC Glucose 337 H 323 H 184 H 06/05/19 17:08 POC Glucose 147 H Hospitalist ROS - Review of Systems All other systems reviewed; all pertinent +/- noted in HPI/Subj - Medication Medications: Active Medications Generic Name Dose Route Start Last Admin Trade Name Freq PRN Reason Stop Dose Admin Acetaminophen 650 mg 06/02/19 07:18 06/05/19 22:20 Tylenol PO 650 mg Q4H PRN Administration Headache/Fever/Mild Pain (1-3) Hydrocodone Bitart/Acetaminophen 1 tab 06/03/19 09:10 06/05/19 20:23 [place] 5/325 PO 1 tab Q4H PRN Administration Moderate to Severe Pain (6-10) Albuterol/Ipratropium 3 ml 06/02/19 12:30 06/06/19 07:02 Duoneb NEB 3 ml TID-RT YRIS Administration Aspirin 81 mg 06/03/19 09:00 06/06/19 08:47 Ecotrin PO 81 mg DAILY YRIS Administration Atorvastatin Calcium 40 mg 06/02/19 21:00 06/05/19 20:21 Lipitor PO 40 mg HS YRIS Administration Carvedilol 6.25 mg 06/02/19 09:00 06/06/19 08:47 Coreg PO 6.25 mg BID YRIS Administration Clopidogrel Bisulfate 75 mg 06/03/19 09:00 06/06/19 08:48 Plavix PO 75 mg DAILY YRIS Administration Ferrous Sulfate 325 mg 06/02/19 09:00 06/06/19 08:48 Feosol PO 325 mg DAILY YRIS Administration Gabapentin 800 mg 06/03/19 15:00 06/06/19 08:48 Neurontin PO 800 mg TID YRIS Administration Heparin Sodium (Porcine) 0 units 06/02/19 07:30 06/02/19 16:40 Heparin 1,000 Units/Ml (10 Ml) SLOW IVP 2,277 unit WILLCALL YRIS Administration Insulin Glargine 8 units/ 0.08 mls @ 0 mls/hr 06/04/19 09:00 06/06/19 08:47 Miscellaneous Medication SC 0.08 mls BID YRIS Administration Insulin Human Lispro 0 units 06/02/19 07:20 06/02/19 21:56 Humalog SC 4 unit .BEDTIME SLIDING SC PRN Administration Bedtime Correctional Scale Insulin Human Lispro 0 units 06/03/19 07:10 06/06/19 11:39 Humalog SC 11 unit .AGGRESSIVE SLIDING PRN Administration Aggressive Correctional Scale Isosorbide Mononitrate 30 mg 06/02/19 09:00 06/06/19 08:48 Imdur Er PO 30 mg DAILY YIRS Administration Ondansetron HCl 4 mg 06/02/19 07:18 06/06/19 08:48 Zofran Odt PO 4 mg Q6H PRN Administration Nausea/Vomiting Ondansetron HCl 4 mg 06/02/19 07:18 06/04/19 05:01 Zofran IVP 4 mg Q6H PRN Administration Nausea/Vomiting Pantoprazole Sodium 40 mg 06/02/19 09:00 06/06/19 08:48 Protonix PO 40 mg DAILY YRIS Administration Ranolazine 1,000 mg 06/02/19 21:00 06/06/19 08:48 Ranexa PO 1,000 mg BID YRIS Administration Sertraline HCl 50 mg 06/02/19 21:00 06/05/19 20:22 Zoloft PO 50 mg HS YRIS Administration Sodium Chloride 10 ml 06/02/19 09:00 06/06/19 08:48 Flush - Normal Saline IVF 10 ml Q12HR YRIS Administration Tamsulosin HCl 0.4 mg 06/02/19 09:00 06/06/19 08:48 Flomax PO 0.4 mg DAILY YRIS Administration Tramadol HCl 50 mg 06/02/19 07:15 06/06/19 08:55 Ultram PO 50 mg QID PRN Administration Moderate Pain (4-6) - Exam General Appearance: NAD, awake alert Eye: anicteric sclera ENT: normocephalic atraumatic, moist mucosa Neck: supple, symmetric, no lymphadenopathy Heart: no murmur, no gallops, no rubs Respiratory: CTAB, no wheezes, no rales, no ronchi Gastrointestinal: soft, non-tender, normal bowel sounds, no guarding, no rigidity Extremities: no edema Skin: no lesions, no rashes Neurological: cranial nerve grossly intact, no new deficit, vision deficit Neurological - other findings: Right hand flexion contracture at baseline. No new neurologic decline Musculoskeletal: generalized weakness, diffuse muscle atrophy Psychiatric: normal affect, A&O x 3 Hosp A/P (1) NSTEMI (non-ST elevated myocardial infarction) Code(s): I21.4 - NON-ST ELEVATION (NSTEMI) MYOCARDIAL INFARCTION Status: Acute (2) CAD (coronary artery disease) Code(s): I25.10 - ATHSCL HEART DISEASE OF [place] CORONARY ARTERY W/O ANG PCTRS Status: Acute (3) Angina at rest Code(s): I20.8 - OTHER FORMS OF ANGINA PECTORIS Status: Acute (4) Acute on chronic systolic and diastolic heart failure, NYHA class 2 Code(s): I50.43 - ACUTE ON CHRONIC COMBINED SYSTOLIC AND DIASTOLIC HRT FAIL Status: Acute (5) CHF (congestive heart failure) Code(s): I50.9 - HEART FAILURE, UNSPECIFIED Status: Acute Qualifiers: Qualified Code(s): I50.23 - Acute on chronic systolic (congestive) heart failure (6) Abnormal cardiac enzyme level Code(s): R74.8 - ABNORMAL LEVELS OF OTHER SERUM ENZYMES Status: Chronic (7) Anxiety Code(s): F41.9 - ANXIETY DISORDER, UNSPECIFIED Status: Chronic (8) COPD (chronic obstructive pulmonary disease) Status: Chronic Qualifiers: COPD type: chronic bronchitis (9) Chest pain Code(s): R07.9 - CHEST PAIN, UNSPECIFIED Status: Chronic (10) DM type 2 (diabetes mellitus, type 2) Status: Chronic Qualifiers: 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 Diabetes mellitus complication status: with kidney complications Diabetes mellitus complication detail: with chronic kidney disease Chronic kidney disease stage : stage 3 (moderate) Qualified Code(s): E11.22 - Type 2 diabetes mellitus with diabetic chronic kidney disease; N18.3 - Chronic kidney disease, stage 3 ( moderate); N18.3 - Chronic kidney disease, stage 3 (moderate); 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; 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; 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; 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 (11) Depression Code(s): F32.9 - MAJOR DEPRESSIVE DISORDER, SINGLE EPISODE, UNSPECIFIED Status : Chronic Qualifiers: Depression Type: unspecified Qualified Code(s): F32.9 - Major depressive disorder, single episode, unspecified (12) Dyslipidemia Code(s): E78.5 - HYPERLIPIDEMIA, UNSPECIFIED Status: Chronic (13) HLD (hyperlipidemia) Code(s): E78.5 - HYPERLIPIDEMIA, UNSPECIFIED Status: Chronic Qualifiers: Hyperlipidemia type: unspecified Qualified Code(s): E78.5 - Hyperlipidemia , unspecified (14) HTN (hypertension) Code(s): I10 - ESSENTIAL (PRIMARY) HYPERTENSION Status: Chronic Qualifiers: Hypertension type: essential hypertension Qualified Code(s): I10 - Essential (primary) hypertension (15) History of left below knee amputation Code(s): Z89.512 - ACQUIRED ABSENCE OF LEFT LEG BELOW KNEE Status: Chronic (16) Ischemic cardiomyopathy Code(s): I25.5 - ISCHEMIC CARDIOMYOPATHY Status: Chronic (17) PVD (peripheral vascular disease) Code(s): I73.9 - PERIPHERAL VASCULAR DISEASE, UNSPECIFIED Status: Chronic - Plan Plan: medical unit with telemetry Neurology consultation MRI brain, questionable compatibility of pacemaker consider US carotid per neurology - S/p right CEA, left stenosis at baseline cardiology consultation, recommendations appreciated nephrology consultation, recommendations appreciated Off heparin drip per cardiology further plan of care per cardiology cardiomyopathy regimen as able continue Ranexa for long-acting control of chest pain insulin sliding-scale for glucose coverage, start long-acting insulin replace electrolytes as needed nicotine patch acute kidney injury has resolved with conservative management patient was recently recommended medical management alone for coronary artery disease
[2019-06-06] MEDS: HYDROcodone/Acetaminophen 5/325 mg Tablet PO PRN (15:42)
[2019-06-06] MEDS ORDERED: diphenhydrAMINE 50 MG/ML VIAL IVP SCH (16:45)
[2019-06-06] MEDS ORDERED: Ketorolac Tromethamine 30 MG/ML VIAL IVP SCH (16:45)
[2019-06-06] MEDS ORDERED: Metoclopramide HCl 10 MG/2 ML VIAL IVP SCH (16:45)
[2019-06-06] MEDS: Atorvastatin Calcium 40 MG TAB PO SCH (21:20)
[2019-06-07] MEDS: Insulin Glargine 8 UNITS in Pre-Filled Syringe 1 EACH SC SCH ×2 (08:29→21:04)
[2019-06-07] MEDS: Carvedilol 6.25 MG TAB PO SCH ×2 (08:30→21:05)
[2019-06-07] MEDS: Aspirin 81 mg Enteric Coated Tablet PO SCH (08:30)
[2019-06-07] MEDS: Clopidogrel Bisulfate 75 MG TAB PO SCH (08:31)
[2019-06-07] MEDS: Ferrous Sulfate 325 MG TAB PO SCH (08:31)
[2019-06-07] MEDS: Gabapentin 400 MG CAP PO SCH ×3 (08:31→21:05)
[2019-06-07] MEDS: Isosorbide Mononitrate (ER) 30 MG TAB PO SCH (08:31)
[2019-06-07] MEDS: Tamsulosin HCl 0.4 MG CAP PO SCH (08:32)
[2019-06-07] MEDS: HumaLOG 300 UNITS/3 ML VIAL SC PRN (08:32)
--- NOTE | 2019-06-07 10:31 | PDOC.HOSPP ---
- Subjective Encounter Date: 06/07/19 Encounter Time: 10:27 - Objective Vital Signs & Weight: Vital Signs (12 hours) Temp Pulse Resp BP Pulse Ox 06/07/19 07:19 70 16 94 L 06/07/19 07:16 98.0 F 69 17 111/59 L 94 L 06/07/19 03:38 97.4 F L 65 16 119/61 97 Weight Admit Weight 167 lb Weight 170 lb 11.2 oz I&O: 06/06/19 06/07/19 06/08/19 06:59 06:59 06:59 Intake Total 870 780 Output Total 1100 1100 Balance -230 -320 Result Diagrams: 06/03/19 04:56 06/03/19 04:56 Additional Labs: Accuchecks 06/07/19 06/06/19 06/06/19 05:22 21:30 17:03 POC Glucose 224 H 136 H 127 H 06/06/19 11:37 POC Glucose 337 H Hospitalist ROS - Medication Medications: Active Medications Generic Name Dose Route Start Last Admin Trade Name Freq PRN Reason Stop Dose Admin Acetaminophen 650 mg 06/02/19 07:18 06/05/19 22:20 Tylenol PO 650 mg Q4H PRN Administration Headache/Fever/Mild Pain (1-3) Hydrocodone Bitart/Acetaminophen 1 tab 06/03/19 09:10 06/06/19 15:42 [place] 5/325 PO 1 tab Q4H PRN Administration Moderate to Severe Pain (6-10) Albuterol/Ipratropium 3 ml 06/02/19 12:30 06/07/19 07:19 Duoneb NEB 3 ml TID-RT YRIS Administration Aspirin 81 mg 06/03/19 09:00 06/07/19 08:30 Ecotrin PO 81 mg DAILY YRIS Administration Atorvastatin Calcium 40 mg 06/02/19 21:00 06/06/19 21:20 Lipitor PO 40 mg HS YRIS Administration Carvedilol 6.25 mg 06/02/19 09:00 06/07/19 08:30 Coreg PO 6.25 mg BID YRIS Administration Clopidogrel Bisulfate 75 mg 06/03/19 09:00 06/07/19 08:31 Plavix PO 75 mg DAILY YRIS Administration Ferrous Sulfate 325 mg 06/02/19 09:00 06/07/19 08:31 Feosol PO 325 mg DAILY YRIS Administration Gabapentin 800 mg 06/03/19 15:00 06/07/19 08:31 Neurontin PO 800 mg TID YRIS Administration Heparin Sodium (Porcine) 0 units 06/02/19 07:30 06/02/19 16:40 Heparin 1,000 Units/Ml (10 Ml) SLOW IVP 2,277 unit WILLCALL YRIS Administration Insulin Glargine 8 units/ 0.08 mls @ 0 mls/hr 06/04/19 09:00 06/07/19 08:29 Miscellaneous Medication SC 0.08 mls BID YRIS Administration Insulin Human Lispro 0 units 06/02/19 07:20 06/02/19 21:56 Humalog SC 4 unit .BEDTIME SLIDING SC PRN Administration Bedtime Correctional Scale Insulin Human Lispro 0 units 06/03/19 07:10 06/07/19 08:32 Humalog SC 6 unit .AGGRESSIVE SLIDING PRN Administration Aggressive Correctional Scale Isosorbide Mononitrate 30 mg 06/02/19 09:00 06/07/19 08:31 Imdur Er PO 30 mg DAILY YRIS Administration Meclizine HCl 25 mg 06/06/19 08:25 06/06/19 15:42 Antivert PO 25 mg Q8H PRN Administration Dizziness Ondansetron HCl 4 mg 06/02/19 07:18 06/06/19 08:48 Zofran Odt PO 4 mg Q6H PRN Administration Nausea/Vomiting Ondansetron HCl 4 mg 06/02/19 07:18 06/04/19 05:01 Zofran IVP 4 mg Q6H PRN Administration Nausea/Vomiting Pantoprazole Sodium 40 mg 06/02/19 09:00 06/07/19 08:31 Protonix PO 40 mg DAILY YRIS Administration Ranolazine 1,000 mg 06/02/19 21:00 06/07/19 08:31 Ranexa PO 1,000 mg BID YRIS Administration Sertraline HCl 50 mg 06/02/19 21:00 06/06/19 21:20 Zoloft PO 50 mg HS YRIS Administration Sodium Chloride 10 ml 06/02/19 09:00 06/07/19 08:32 Flush - Normal Saline IVF 10 ml Q12HR YRIS Administration Tamsulosin HCl 0.4 mg 06/02/19 09:00 06/07/19 08:32 Flomax PO 0.4 mg DAILY YRIS Administration Tramadol HCl 50 mg 06/02/19 07:15 06/06/19 08:55 Ultram PO 50 mg QID PRN Administration Moderate Pain (4-6) Hosp A/P - Plan The patient had AMI one month ago s/p stent in [facility]. Admitted to hospital, on arrival there is slight elevation of troponin. On betablocker, Statin, plavix, already had cardiac rehab, ambulating well. The cardiology cleared to d/c but still has dizziness. No need for 2-d echo as he had it recently.This is a borderline non stemi, currently has no chest pain.Will arrange follow up cardiology appointment with [facility].
--- NOTE | 2019-06-07 11:16 | CT ---
CT BRAIN NONCONTRAST: 06/07/2019 HISTORY: A 59-year-old male with double vision and headache; rule out occipital infarction. FINDINGS: There is no midline shift or any other mass effect. There is no evidence of acute intracranial hemor rhage, large cortical infarct, obstructive hydrocephalus, or extraaxial fluid collection. The calvar ium is intact. IMPRESSION: No acute intracranial findings. jn [] POS: CET
[2019-06-07 13:43] VITALS: BMI 24.5
--- NOTE | 2019-06-07 15:37 | PDOC.HOSPP ---
- Subjective Encounter Date: 06/07/19 Encounter Time: 15:36 Subjective: new complaint - Objective Vital Signs & Weight: Vital Signs (12 hours) Temp Pulse Resp BP Pulse Ox 06/07/19 15:00 98.9 F 65 14 118/59 L 93 L 06/07/19 13:31 62 16 06/07/19 11:15 98.9 F 66 16 110/56 L 95 06/07/19 07:19 70 16 94 L 06/07/19 07:16 98.0 F 69 17 111/59 L 94 L 06/07/19 03:38 97.4 F L 65 16 119/61 97 Weight Admit Weight 167 lb Weight 170 lb 11.2 oz I&O: 06/06/19 06/07/19 06/08/19 06:59 06:59 06:59 Intake Total 870 780 Output Total 1100 1100 Balance -230 -320 Result Diagrams: 06/03/19 04:56 06/03/19 04:56 Additional Labs: Accuchecks 06/07/19 06/07/19 06/06/19 10:50 05:22 21:30 POC Glucose 142 H 224 H 136 H 06/06/19 17:03 POC Glucose 127 H Hospitalist ROS - Medication Medications: Active Medications Generic Name Dose Route Start Last Admin Trade Name Freq PRN Reason Stop Dose Admin Acetaminophen 650 mg 06/02/19 07:18 06/05/19 22:20 Tylenol PO 650 mg Q4H PRN Administration Headache/Fever/Mild Pain (1-3) Hydrocodone Bitart/Acetaminophen 1 tab 06/03/19 09:10 06/06/19 15:42 [place] 5/325 PO 1 tab Q4H PRN Administration Moderate to Severe Pain (6-10) Albuterol/Ipratropium 3 ml 06/02/19 12:30 06/07/19 13:31 Duoneb NEB 3 ml TID-RT YRIS Administration Aspirin 81 mg 06/03/19 09:00 06/07/19 08:30 Ecotrin PO 81 mg DAILY YRIS Administration Atorvastatin Calcium 40 mg 06/02/19 21:00 06/06/19 21:20 Lipitor PO 40 mg HS YRIS Administration Carvedilol 6.25 mg 06/02/19 09:00 06/07/19 08:30 Coreg PO 6.25 mg BID YRIS Administration Clopidogrel Bisulfate 75 mg 06/03/19 09:00 06/07/19 08:31 Plavix PO 75 mg DAILY YRIS Administration Ferrous Sulfate 325 mg 06/02/19 09:00 06/07/19 08:31 Feosol PO 325 mg DAILY YRIS Administration Gabapentin 800 mg 06/03/19 15:00 06/07/19 14:28 Neurontin PO 800 mg TID YRIS Administration Heparin Sodium (Porcine) 0 units 06/02/19 07:30 06/02/19 16:40 Heparin 1,000 Units/Ml (10 Ml) SLOW IVP 2,277 unit WILLCALL YRIS Administration Insulin Glargine 8 units/ 0.08 mls @ 0 mls/hr 06/04/19 09:00 06/07/19 08:29 Miscellaneous Medication SC 0.08 mls BID YRIS Administration Insulin Human Lispro 0 units 06/02/19 07:20 06/02/19 21:56 Humalog SC 4 unit .BEDTIME SLIDING SC PRN Administration Bedtime Correctional Scale Insulin Human Lispro 0 units 06/03/19 07:10 06/07/19 08:32 Humalog SC 6 unit .AGGRESSIVE SLIDING PRN Administration Aggressive Correctional Scale Isosorbide Mononitrate 30 mg 06/02/19 09:00 06/07/19 08:31 Imdur Er PO 30 mg DAILY YRIS Administration Meclizine HCl 25 mg 06/06/19 08:25 06/06/19 15:42 Antivert PO 25 mg Q8H PRN Administration Dizziness Ondansetron HCl 4 mg 06/02/19 07:18 06/06/19 08:48 Zofran Odt PO 4 mg Q6H PRN Administration Nausea/Vomiting Ondansetron HCl 4 mg 06/02/19 07:18 06/04/19 05:01 Zofran IVP 4 mg Q6H PRN Administration Nausea/Vomiting Pantoprazole Sodium 40 mg 06/02/19 09:00 06/07/19 08:31 Protonix PO 40 mg DAILY YRIS Administration Ranolazine 1,000 mg 06/02/19 21:00 06/07/19 08:31 Ranexa PO 1,000 mg BID YRIS Administration Sertraline HCl 50 mg 06/02/19 21:00 06/06/19 21:20 Zoloft PO 50 mg HS YRIS Administration Sodium Chloride 10 ml 06/02/19 09:00 06/07/19 08:32 Flush - Normal Saline IVF 10 ml Q12HR YRIS Administration Tamsulosin HCl 0.4 mg 06/02/19 09:00 06/07/19 08:32 Flomax PO 0.4 mg DAILY YRIS Administration Tramadol HCl 50 mg 06/02/19 07:15 06/06/19 08:55 Ultram PO 50 mg QID PRN Administration Moderate Pain (4-6) - Exam General Appearance: NAD, awake alert, ill appearing Eye: PERRL, anicteric sclera, scleral icterus ENT: normocephalic atraumatic, no oropharyngeal lesions, moist mucosa, dry oral mucosa Neck: supple, symmetric, no JVD, no thyromegaly, no lymphadenopathy, no carotid bruit, JVD Heart: RRR, no murmur, no gallops, no rubs, normal peripheral pulses, irregular , diminshed peripheral pulses, murmur present, II/IV, III/IV Respiratory: CTAB, no wheezes, no rales, no ronchi, normal chest expansion, no tachypnea, normal percussion, rales, rhonchi, tachypneic, wheezes Gastrointestinal: soft, non-tender, non-distended, normal bowel sounds, no palpable masses, no hepatomegaly, no splenomegaly, no bruit, no guarding, no rigidity, tender to palpation, distended, diminished bowl sounds, voluntary guarding Hosp A/P (1) Angina at rest Code(s): I20.8 - OTHER FORMS OF ANGINA PECTORIS Status: Acute (2) CAD (coronary artery disease) Code(s): I25.10 - ATHSCL HEART DISEASE OF [place] CORONARY ARTERY W/O ANG PCTRS Status: Acute (3) Acute on chronic systolic and diastolic heart failure, NYHA class 2 Code(s): I50.43 - ACUTE ON CHRONIC COMBINED SYSTOLIC AND DIASTOLIC HRT FAIL Status: Acute - Plan The patient had AMI one month ago s/p stent in [facility]. Admitted to hospital, on arrival there is slight elevation of troponin. On betablocker, Statin, plavix, already had cardiac rehab, ambulating well. The cardiology cleared to d/c but still has dizziness. No need for 2-d echo as he had it recently.This is a borderline non stemi, currently has no chest pain.Will arrange follow up cardiology appointment with [facility].
[2019-06-07] MEDS: Atorvastatin Calcium 40 MG TAB PO SCH (21:06)
[2019-06-07] MEDS: HYDROcodone/Acetaminophen 5/325 mg Tablet PO PRN (21:09)
--- NOTE | 2019-06-08 00:26 | CON ---
DATE OF CONSULTATION: 06/07/2019 CONSULTING PHYSICIAN: Hospitalist Service. IMPRESSION: 1. Probable right ophthalmologic issue causing monocular double vision. 2. Nonspecific headache, which appears to be improved. PLAN: The patient can be discharged home for ophthalmology followup. HISTORY OF PRESENT ILLNESS: Mr. Hein is a 59-year-old man with a past history of diabetes, hypertension, hyperlipidemia, coronary artery disease and pacemaker implantation. He came in with complaints of double vision and frontal headache. CT scan of the brain was unremarkable. His vital signs have been stable. He is afebrile. He was given migraine protocol yesterday. The intensity of the headache is much better. He is still complaining of visual obscuration. He reports it looks like things are moving that he is looking at that should be stationary. He also reports seeing two things out of his right eye only. He has single vision in the left eye. PAST MEDICAL HISTORY: As listed above. ALLERGIES: NONE. SOCIAL HISTORY: Unremarkable. FAMILY HISTORY: Unremarkable. REVIEW OF SYSTEMS: A 10-system review of systems is otherwise negative. PHYSICAL EXAMINATION: GENERAL: He is a somewhat ill-appearing middle-aged man, who is a bit cachectic looking. HEENT: His pupils are equal. Conjunctivae are clear. His eye movements are intact. No nystagmus is present. Visual acuity in the left eye is normal. Visual acuity in the right eye is distorted. Oropharynx is clear. NECK: Supple. EXTREMITIES: He has bilateral partial amputations. He has contractures of the hand on the right side. There is atrophy of the intrinsic muscles of the hand. NEUROLOGIC: He is alert and cooperative. His speech is fluent and clear. Cranial nerves are otherwise intact. He has good antigravity strength in both upper extremities. There is no fix or drift. He has no tremor dysmetria. Gait cannot be tested because he did not have his prosthesis on. No abnormal movements are seen. IMAGING STUDIES: EKG shows a paced rhythm as well as a sinus rhythm with a first-degree AV block. SUMMARY: This is a middle-aged gentleman with complaints of headache and double vision. He has nothing remarkable on exam. His symptoms are better today. I think that he can be discharged home for outpatient management. Job ID: [id number]
[2019-06-08] MEDS: Insulin Glargine 8 UNITS in Pre-Filled Syringe 1 EACH SC SCH ×2 (09:27→21:22)
[2019-06-08] MEDS: Aspirin 81 mg Enteric Coated Tablet PO SCH (09:28)
[2019-06-08] MEDS: Gabapentin 400 MG CAP PO SCH ×3 (09:28→20:04)
[2019-06-08] MEDS: Isosorbide Mononitrate (ER) 30 MG TAB PO SCH (09:28)
[2019-06-08] MEDS: Tamsulosin HCl 0.4 MG CAP PO SCH (09:28)
[2019-06-08] MEDS: Clopidogrel Bisulfate 75 MG TAB PO SCH (09:28)
[2019-06-08] MEDS: Carvedilol 6.25 MG TAB PO SCH ×2 (09:29→20:04)
[2019-06-08] MEDS: Ferrous Sulfate 325 MG TAB PO SCH (09:29)
--- NOTE | 2019-06-08 11:51 | PDOC.HOSPP ---
- Subjective Encounter Date: 06/08/19 Encounter Time: 11:49 Subjective: No new complaint - Objective Vital Signs & Weight: Vital Signs (12 hours) Temp Pulse Resp BP BP Pulse Ox 06/08/19 11:16 98.0 F 67 16 132/60 100 06/08/19 09:29 131/65 06/08/19 08:00 98.2 F 70 18 131/65 96 06/08/19 06:59 61 16 06/08/19 04:00 97.5 F L 62 12 125/61 94 L Weight Admit Weight 167 lb Weight 164 lb I&O: 06/07/19 06/08/19 06/09/19 06:59 06:59 06:59 Intake Total 780 1250 Output Total 1100 Balance -320 1250 Result Diagrams: 06/03/19 04:56 06/03/19 04:56 Additional Labs: Accuchecks 06/08/19 06/08/19 06/07/19 10:50 05:33 20:18 POC Glucose 146 H 155 H 169 H 06/07/19 16:37 POC Glucose 149 H Hospitalist ROS - Medication Medications: Active Medications Generic Name Dose Route Start Last Admin Trade Name Freq PRN Reason Stop Dose Admin Acetaminophen 650 mg 06/02/19 07:18 06/05/19 22:20 Tylenol PO 650 mg Q4H PRN Administration Headache/Fever/Mild Pain (1-3) Hydrocodone Bitart/Acetaminophen 1 tab 06/03/19 09:10 06/07/19 21:09 [place] 5/325 PO 1 tab Q4H PRN Administration Moderate to Severe Pain (6-10) Albuterol/Ipratropium 3 ml 06/02/19 12:30 06/08/19 06:59 Duoneb NEB 3 ml TID-RT YRIS Administration Aspirin 81 mg 06/03/19 09:00 06/08/19 09:28 Ecotrin PO 81 mg DAILY YRIS Administration Atorvastatin Calcium 40 mg 06/02/19 21:00 06/07/19 21:06 Lipitor PO 40 mg HS YRIS Administration Carvedilol 6.25 mg 06/02/19 09:00 06/08/19 09:29 Coreg PO 6.25 mg BID YRIS Administration Clopidogrel Bisulfate 75 mg 06/03/19 09:00 06/08/19 09:28 Plavix PO 75 mg DAILY YRIS Administration Ferrous Sulfate 325 mg 06/02/19 09:00 06/08/19 09:29 Feosol PO 325 mg DAILY YRIS Administration Gabapentin 800 mg 06/03/19 15:00 06/08/19 09:28 Neurontin PO 800 mg TID YRIS Administration Heparin Sodium (Porcine) 0 units 06/02/19 07:30 06/02/19 16:40 Heparin 1,000 Units/Ml (10 Ml) SLOW IVP 2,277 unit WILLCALL YRIS Administration Insulin Glargine 8 units/ 0.08 mls @ 0 mls/hr 06/04/19 09:00 06/08/19 09:27 Miscellaneous Medication SC 0.08 mls BID YRIS Administration Insulin Human Lispro 0 units 06/02/19 07:20 06/02/19 21:56 Humalog SC 4 unit .BEDTIME SLIDING SC PRN Administration Bedtime Correctional Scale Insulin Human Lispro 0 units 06/03/19 07:10 06/07/19 08:32 Humalog SC 6 unit .AGGRESSIVE SLIDING PRN Administration Aggressive Correctional Scale Isosorbide Mononitrate 30 mg 06/02/19 09:00 06/08/19 09:28 Imdur Er PO 30 mg DAILY YRIS Administration Meclizine HCl 25 mg 06/06/19 08:25 06/06/19 15:42 Antivert PO 25 mg Q8H PRN Administration Dizziness Ondansetron HCl 4 mg 06/02/19 07:18 06/06/19 08:48 Zofran Odt PO 4 mg Q6H PRN Administration Nausea/Vomiting Ondansetron HCl 4 mg 06/02/19 07:18 06/04/19 05:01 Zofran IVP 4 mg Q6H PRN Administration Nausea/Vomiting Pantoprazole Sodium 40 mg 06/02/19 09:00 06/08/19 09:28 Protonix PO 40 mg DAILY YRIS Administration Ranolazine 1,000 mg 06/02/19 21:00 06/08/19 09:28 Ranexa PO 1,000 mg BID YRIS Administration Sertraline HCl 50 mg 06/02/19 21:00 06/07/19 21:06 Zoloft PO 50 mg HS YRIS Administration Sodium Chloride 10 ml 06/02/19 09:00 06/08/19 09:29 Flush - Normal Saline IVF 10 ml Q12HR YRIS Administration Tamsulosin HCl 0.4 mg 06/02/19 09:00 06/08/19 09:28 Flomax PO 0.4 mg DAILY YRIS Administration Tramadol HCl 50 mg 06/02/19 07:15 06/06/19 08:55 Ultram PO 50 mg QID PRN Administration Moderate Pain (4-6) - Exam General Appearance: NAD, awake alert, ill appearing Eye: PERRL, anicteric sclera, scleral icterus ENT: normocephalic atraumatic, no oropharyngeal lesions, moist mucosa, dry oral mucosa Neck: supple, symmetric, no JVD, no thyromegaly, no lymphadenopathy, no carotid bruit, JVD Heart: RRR, no murmur, no gallops, no rubs, normal peripheral pulses, irregular , diminshed peripheral pulses, murmur present, II/IV, III/IV Respiratory: CTAB, no wheezes, no rales, no ronchi, normal chest expansion, no tachypnea, normal percussion, rales, rhonchi, tachypneic, wheezes Gastrointestinal: soft, non-tender, non-distended, normal bowel sounds, no palpable masses, no hepatomegaly, no splenomegaly, no bruit, no guarding, no rigidity, tender to palpation, distended, diminished bowl sounds, voluntary guarding Extremities: no cyanosis, no clubbing, no edema, 1+ LE edema, 2+ LE edema, clubbing Skin: normal turgor, no lesions, no rashes, tenting Neurological: cranial nerve grossly intact, normal sensation to touch, no weakness, no focal deficits, no new deficit, facial droop, hemiplegia, speech deficit, vision deficit Hosp A/P (1) Angina at rest Code(s): I20.8 - OTHER FORMS OF [place] Status: Acute (2) CAD (coronary artery disease) Code(s): I25.10 - ATHSCL HEART DISEASE OF [place] CORONARY ARTERY W/O ANG PCTRS Status: Acute (3) Acute on chronic systolic and diastolic heart failure, NYHA class 2 Code(s): I50.43 - ACUTE ON CHRONIC COMBINED SYSTOLIC AND DIASTOLIC HRT FAIL Status: Acute - Plan The patient had AMI one month ago s/p stent in [facility]. Admitted to hospital, on arrival there is slight elevation of troponin. On betablocker, Statin, plavix, already had cardiac rehab, ambulating well. The cardiology cleared to d/c but still has dizziness. No need for 2-d echo as he had it recently.This is a borderline non stemi, currently has no chest pain.Will arrange follow up cardiology appointment with cj love.Await placement.
[2019-06-08] MEDS: Atorvastatin Calcium 40 MG TAB PO SCH (20:04)
[2019-06-09] MEDS: Aspirin 81 mg Enteric Coated Tablet PO SCH (08:36)
[2019-06-09] MEDS: Clopidogrel Bisulfate 75 MG TAB PO SCH (08:37)
[2019-06-09] MEDS: Gabapentin 400 MG CAP PO SCH ×3 (08:37→20:43)
[2019-06-09] MEDS: Carvedilol 6.25 MG TAB PO SCH ×2 (08:37→20:43)
[2019-06-09] MEDS: Tamsulosin HCl 0.4 MG CAP PO SCH (08:38)
[2019-06-09] MEDS: Isosorbide Mononitrate (ER) 30 MG TAB PO SCH (08:38)
[2019-06-09] MEDS: Ferrous Sulfate 325 MG TAB PO SCH (08:38)
[2019-06-09] MEDS: HYDROcodone/Acetaminophen 5/325 mg Tablet PO PRN (08:39)
[2019-06-09] MEDS: HumaLOG 300 UNITS/3 ML VIAL SC PRN ×2 (08:40→18:04)
[2019-06-09] MEDS: Insulin Glargine 8 UNITS in Pre-Filled Syringe 1 EACH SC SCH ×2 (09:37→21:26)
[2019-06-09] MEDS: Ondansetron ODT 4 MG TAB PO PRN ×2 (09:38→21:25)
--- NOTE | 2019-06-09 11:56 | PDOC.HOSPP ---
- Subjective Encounter Date: 06/09/19 Encounter Time: 08:25 Subjective: No new complaint... - Objective Vital Signs & Weight: Vital Signs (12 hours) Temp Pulse Resp BP Pulse Ox 06/09/19 07:49 96.7 F L 61 17 107/57 L 98 06/09/19 04:00 98.7 F 71 18 118/63 93 L Weight Admit Weight 167 lb Weight 167 lb 9.6 oz I&O: 06/08/19 06/09/19 06/10/19 06:59 06:59 06:59 Intake Total 1250 1260 Output Total 600 Balance 1250 660 Result Diagrams: 06/03/19 04:56 06/03/19 04:56 Additional Labs: Accuchecks 06/09/19 06/09/19 06/08/19 10:48 05:40 20:20 POC Glucose 149 H 179 H 164 H 06/08/19 16:35 POC Glucose 168 H Hospitalist ROS - Medication Medications: Active Medications Generic Name Dose Route Start Last Admin Trade Name Freq PRN Reason Stop Dose Admin Acetaminophen 650 mg 06/02/19 07:18 06/05/19 22:20 Tylenol PO 650 mg Q4H PRN Administration Headache/Fever/Mild Pain (1-3) Hydrocodone Bitart/Acetaminophen 1 tab 06/03/19 09:10 06/09/19 08:39 [place] 5/325 PO 1 tab Q4H PRN Administration Moderate to Severe Pain (6-10) Aspirin 81 mg 06/03/19 09:00 06/09/19 08:36 Ecotrin PO 81 mg DAILY YRIS Administration Atorvastatin Calcium 40 mg 06/02/19 21:00 06/08/19 20:04 Lipitor PO 40 mg HS YRIS Administration Carvedilol 6.25 mg 06/02/19 09:00 06/09/19 08:37 Coreg PO 6.25 mg BID YRIS Administration Clopidogrel Bisulfate 75 mg 06/03/19 09:00 06/09/19 08:37 Plavix PO 75 mg DAILY YRIS Administration Ferrous Sulfate 325 mg 06/02/19 09:00 06/09/19 08:38 Feosol PO 325 mg DAILY YRIS Administration Gabapentin 800 mg 06/03/19 15:00 06/09/19 08:37 Neurontin PO 800 mg TID YRIS Administration Heparin Sodium (Porcine) 0 units 06/02/19 07:30 06/02/19 16:40 Heparin 1,000 Units/Ml (10 Ml) SLOW IVP 2,277 unit WILLCALL YRSI Administration Insulin Glargine 8 units/ 0.08 mls @ 0 mls/hr 06/04/19 09:00 06/09/19 09:37 Miscellaneous Medication SC 0.08 mls BID YRIS Administration Insulin Human Lispro 0 units 06/02/19 07:20 06/02/19 21:56 Humalog SC 4 unit .BEDTIME SLIDING SC PRN Administration Bedtime Correctional Scale Insulin Human Lispro 0 units 06/03/19 07:10 06/09/19 08:40 Humalog SC 3 unit .AGGRESSIVE SLIDING PRN Administration Aggressive Correctional Scale Isosorbide Mononitrate 30 mg 06/02/19 09:00 06/09/19 08:38 Imdur Er PO 30 mg DAILY YRIS Administration Meclizine HCl 25 mg 06/06/19 08:25 06/06/19 15:42 Antivert PO 25 mg Q8H PRN Administration Dizziness Ondansetron HCl 4 mg 06/02/19 07:18 06/09/19 09:38 Zofran Odt PO 4 mg Q6H PRN Administration Nausea/Vomiting Ondansetron HCl 4 mg 06/02/19 07:18 06/04/19 05:01 Zofran IVP 4 mg Q6H PRN Administration Nausea/Vomiting Pantoprazole Sodium 40 mg 06/02/19 09:00 06/09/19 08:38 Protonix PO 40 mg DAILY YRIS Administration Ranolazine 1,000 mg 06/02/19 21:00 06/09/19 08:38 Ranexa PO 1,000 mg BID YRIS Administration Sertraline HCl 50 mg 06/02/19 21:00 06/08/19 20:04 Zoloft PO 50 mg HS YRIS Administration Sodium Chloride 10 ml 06/02/19 09:00 06/09/19 08:45 Flush - Normal Saline IVF 10 ml Q12HR YRIS Administration Tamsulosin HCl 0.4 mg 06/02/19 09:00 06/09/19 08:38 Flomax PO 0.4 mg DAILY YRIS Administration Tramadol HCl 50 mg 06/02/19 07:15 06/06/19 08:55 Ultram PO 50 mg QID PRN Administration Moderate Pain (4-6) - Exam Eye: anicteric sclera Neck: no JVD Heart: RRR Respiratory: CTAB Gastrointestinal: soft Extremities: 1+ LE edema (s/p left BKA, right TMA..) Neurological: no focal deficits Psychiatric: normal affect Hosp A/P (1) PVD (peripheral vascular disease) Code(s): I73.9 - PERIPHERAL VASCULAR DISEASE, UNSPECIFIED Status: Chronic (2) BARB (acute kidney injury) Code(s): N17.9 - ACUTE KIDNEY FAILURE, UNSPECIFIED Status: Acute Plan: Resolved (3) Acute on chronic systolic and diastolic heart failure, NYHA class 2 Code(s): I50.43 - ACUTE ON CHRONIC COMBINED SYSTOLIC AND DIASTOLIC HRT FAIL Status: Acute Plan: Compensated.. 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 - Plan Awaiting placement...
[2019-06-09] MEDS: Atorvastatin Calcium 40 MG TAB PO SCH (20:43)
[2019-06-10] MEDS: Clopidogrel Bisulfate 75 MG TAB PO SCH (09:26)
[2019-06-10] MEDS: Isosorbide Mononitrate (ER) 30 MG TAB PO SCH (09:26)
[2019-06-10] MEDS: Carvedilol 6.25 MG TAB PO SCH ×2 (09:26→21:19)
[2019-06-10] MEDS: Aspirin 81 mg Enteric Coated Tablet PO SCH (09:27)
[2019-06-10] MEDS: Tamsulosin HCl 0.4 MG CAP PO SCH (09:27)
[2019-06-10] MEDS: Gabapentin 400 MG CAP PO SCH ×3 (09:27→21:18)
[2019-06-10] MEDS: Ferrous Sulfate 325 MG TAB PO SCH (09:27)
[2019-06-10] MEDS: Insulin Glargine 8 UNITS in Pre-Filled Syringe 1 EACH SC SCH ×2 (09:28→21:22)
[2019-06-10] MEDS: HumaLOG 300 UNITS/3 ML VIAL SC PRN ×2 (09:29→18:35)
[2019-06-10] MEDS: Ondansetron ODT 4 MG TAB PO PRN (09:34)
--- NOTE | 2019-06-10 09:58 | PDOC.HOSPP ---
- Subjective Encounter Date: 06/10/19 Encounter Time: 08:30 Subjective: No complaint. Feels better. - Objective Vital Signs & Weight: Vital Signs (12 hours) Temp Pulse Resp BP Pulse Ox 06/10/19 07:32 97.9 F 59 L 17 100/49 L 100 06/10/19 04:55 98.1 F 63 16 115/64 98 Weight Admit Weight 167 lb Weight 166 lb 9.6 oz I&O: 06/09/19 06/10/19 06/11/19 06:59 06:59 06:59 Intake Total 1260 1260 Output Total 600 500 Balance 660 760 Result Diagrams: 06/03/19 04:56 06/03/19 04:56 Additional Labs: Accuchecks 06/10/19 06/09/19 06/09/19 05:09 20:50 17:18 POC Glucose 156 H 248 H 175 H 06/09/19 10:48 POC Glucose 149 H Hospitalist ROS - Medication Medications: Active Medications Generic Name Dose Route Start Last Admin Trade Name Freq PRN Reason Stop Dose Admin Acetaminophen 650 mg 06/02/19 07:18 06/05/19 22:20 Tylenol PO 650 mg Q4H PRN Administration Headache/Fever/Mild Pain (1-3) Hydrocodone Bitart/Acetaminophen 1 tab 06/03/19 09:10 06/09/19 08:39 [place] 5/325 PO 1 tab Q4H PRN Administration Moderate to Severe Pain (6-10) Aspirin 81 mg 06/03/19 09:00 06/10/19 09:27 Ecotrin PO 81 mg DAILY YRIS Administration Atorvastatin Calcium 40 mg 06/02/19 21:00 06/09/19 20:43 Lipitor PO 40 mg HS YRIS Administration Carvedilol 6.25 mg 06/02/19 09:00 06/10/19 09:26 Coreg PO 6.25 mg BID YRIS Administration Clopidogrel Bisulfate 75 mg 06/03/19 09:00 06/10/19 09:26 Plavix PO 75 mg DAILY YRIS Administration Ferrous Sulfate 325 mg 06/02/19 09:00 06/10/19 09:27 Feosol PO 325 mg DAILY YRIS Administration Gabapentin 800 mg 06/03/19 15:00 06/10/19 09:27 Neurontin PO 800 mg TID YRIS Administration Heparin Sodium (Porcine) 0 units 06/02/19 07:30 06/02/19 16:40 Heparin 1,000 Units/Ml (10 Ml) SLOW IVP 2,277 unit WILLCALL YRIS Administration Insulin Glargine 8 units/ 0.08 mls @ 0 mls/hr 06/04/19 09:00 06/10/19 09:28 Miscellaneous Medication SC 0.08 mls BID YRIS Administration Insulin Human Lispro 0 units 06/02/19 07:20 06/02/19 21:56 Humalog SC 4 unit .BEDTIME SLIDING SC PRN Administration Bedtime Correctional Scale Insulin Human Lispro 0 units 06/03/19 07:10 06/10/19 09:29 Humalog SC 3 unit .AGGRESSIVE SLIDING PRN Administration Aggressive Correctional Scale Isosorbide Mononitrate 30 mg 06/02/19 09:00 06/10/19 09:26 Imdur Er PO 30 mg DAILY YRIS Administration Meclizine HCl 25 mg 06/06/19 08:25 06/06/19 15:42 Antivert PO 25 mg Q8H PRN Administration Dizziness Ondansetron HCl 4 mg 06/02/19 07:18 06/10/19 09:34 Zofran Odt PO 4 mg Q6H PRN Administration Nausea/Vomiting Ondansetron HCl 4 mg 06/02/19 07:18 06/04/19 05:01 Zofran IVP 4 mg Q6H PRN Administration Nausea/Vomiting Pantoprazole Sodium 40 mg 06/02/19 09:00 06/10/19 09:26 Protonix PO 40 mg DAILY YRIS Administration Ranolazine 1,000 mg 06/02/19 21:00 06/10/19 09:26 Ranexa PO 1,000 mg BID YRIS Administration Sertraline HCl 50 mg 06/02/19 21:00 06/09/19 20:42 Zoloft PO 50 mg HS YRIS Administration Sodium Chloride 10 ml 06/02/19 09:00 06/10/19 09:32 Flush - Normal Saline IVF 10 ml Q12HR YRIS Administration Tamsulosin HCl 0.4 mg 06/02/19 09:00 06/10/19 09:27 Flomax PO 0.4 mg DAILY YRIS Administration Tramadol HCl 50 mg 06/02/19 07:15 06/06/19 08:55 Ultram PO 50 mg QID PRN Administration Moderate Pain (4-6) - Exam General Appearance: NAD Neck: no JVD Heart: RRR Respiratory: CTAB Gastrointestinal: soft Extremities - other findings: s/p right BKA & left TMA.. Hosp A/P (1) PVD (peripheral vascular disease) Code(s): I73.9 - PERIPHERAL VASCULAR DISEASE, UNSPECIFIED Status: Chronic (2) BARB (acute kidney injury) Code(s): N17.9 - ACUTE KIDNEY FAILURE, UNSPECIFIED Status: Acute Plan: resolved (3) Acute on chronic systolic and diastolic heart failure, NYHA class 2 Code(s): I50.43 - ACUTE ON CHRONIC COMBINED SYSTOLIC AND DIASTOLIC HRT FAIL Status: Acute Plan: compensated (4) DM type 2 (diabetes mellitus, type 2) Status: Chronic Qualifiers: Diabetes mellitus director long term care insulin use: with director long term care use Diabetes mellitus complication status: with kidney complications Diabetes mellitus complication detail: with chronic kidney disease Chronic kidney disease stage : stage 3 (moderate) Qualified Code(s): E11.22 - Type 2 diabetes mellitus with diabetic chronic kidney disease; N18.3 - Chronic kidney disease, stage 3 ( moderate); N18.3 - Chronic kidney disease, stage 3 (moderate); Z79.4 - residential (current) use of insulin; 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
[2019-06-10] MEDS: Atorvastatin Calcium 40 MG TAB PO SCH (21:19)
[2019-06-10] MEDS: HYDROcodone/Acetaminophen 5/325 mg Tablet PO PRN (21:29)
[2019-06-11] MEDS: HumaLOG 300 UNITS/3 ML VIAL SC PRN (06:19)
--- NOTE | 2019-06-11 07:39 | PDOC.HOSPP ---
- Subjective Encounter Date: 06/11/19 Encounter Time: 07:37 Subjective: double vision improved, weak in legs. no chest oain or sob. - Objective Vital Signs & Weight: Vital Signs (12 hours) Temp Pulse Resp BP BP Pulse Ox 06/11/19 05:17 98.3 F 56 L 16 120/64 99 06/11/19 00:00 98.2 F 68 16 122/60 99 06/10/19 21:19 124/63 06/10/19 20:00 98.5 F 65 18 124/63 99 Weight Admit Weight 167 lb Weight 167 lb 3 oz I&O: 06/10/19 06/11/19 06/12/19 06:59 06:59 06:59 Intake Total 1260 1450 Output Total 500 1050 Balance 760 400 Result Diagrams: 06/03/19 04:56 06/03/19 04:56 Additional Labs: Accuchecks 06/11/19 06/10/19 06/10/19 06:18 20:48 16:42 POC Glucose 166 H 146 H 168 H 06/10/19 06/10/19 16:02 11:17 POC Glucose 162 H 93 Hospitalist ROS - Medication Medications: Active Medications Generic Name Dose Route Start Last Admin Trade Name Freq PRN Reason Stop Dose Admin Acetaminophen 650 mg 06/02/19 07:18 06/05/19 22:20 Tylenol PO 650 mg Q4H PRN Administration Headache/Fever/Mild Pain (1-3) Hydrocodone Bitart/Acetaminophen 1 tab 06/03/19 09:10 06/10/19 21:29 [place] 5/325 PO 1 tab Q4H PRN Administration Moderate to Severe Pain (6-10) Aspirin 81 mg 06/03/19 09:00 06/10/19 09:27 Ecotrin PO 81 mg DAILY YRIS Administration Atorvastatin Calcium 40 mg 06/02/19 21:00 06/10/19 21:19 Lipitor PO 40 mg HS YRIS Administration Carvedilol 6.25 mg 06/02/19 09:00 06/10/19 21:19 Coreg PO 6.25 mg BID YRIS Administration Clopidogrel Bisulfate 75 mg 06/03/19 09:00 06/10/19 09:26 Plavix PO 75 mg DAILY YRIS Administration Ferrous Sulfate 325 mg 06/02/19 09:00 06/10/19 09:27 Feosol PO 325 mg DAILY YRIS Administration Gabapentin 800 mg 06/03/19 15:00 06/10/19 21:18 Neurontin PO 800 mg TID YRIS Administration Heparin Sodium (Porcine) 0 units 06/02/19 07:30 06/02/19 16:40 Heparin 1,000 Units/Ml (10 Ml) SLOW IVP 2,277 unit WILLCALL YRIS Administration Insulin Glargine 8 units/ 0.08 mls @ 0 mls/hr 06/04/19 09:00 06/10/19 21:22 Miscellaneous Medication SC 0.08 mls BID YRIS Administration Insulin Human Lispro 0 units 06/02/19 07:20 06/02/19 21:56 Humalog SC 4 unit .BEDTIME SLIDING SC PRN Administration Bedtime Correctional Scale Insulin Human Lispro 0 units 06/03/19 07:10 06/11/19 06:19 Humalog SC 3 unit .AGGRESSIVE SLIDING PRN Administration Aggressive Correctional Scale Isosorbide Mononitrate 30 mg 06/02/19 09:00 06/10/19 09:26 Imdur Er PO 30 mg DAILY YRIS Administration Meclizine HCl 25 mg 06/06/19 08:25 06/06/19 15:42 Antivert PO 25 mg Q8H PRN Administration Dizziness Ondansetron HCl 4 mg 06/02/19 07:18 06/10/19 09:34 Zofran Odt PO 4 mg Q6H PRN Administration Nausea/Vomiting Ondansetron HCl 4 mg 06/02/19 07:18 06/04/19 05:01 Zofran IVP 4 mg Q6H PRN Administration Nausea/Vomiting Pantoprazole Sodium 40 mg 06/02/19 09:00 06/10/19 09:26 Protonix PO 40 mg DAILY YRIS Administration Ranolazine 1,000 mg 06/02/19 21:00 06/10/19 21:18 Ranexa PO 1,000 mg BID YRIS Administration Sertraline HCl 50 mg 06/02/19 21:00 06/10/19 21:19 Zoloft PO 50 mg HS YRIS Administration Sodium Chloride 10 ml 06/02/19 09:00 06/10/19 21:20 Flush - Normal Saline IVF 10 ml Q12HR YRIS Administration Tamsulosin HCl 0.4 mg 06/02/19 09:00 06/10/19 09:27 Flomax PO 0.4 mg DAILY YRIS Administration Tramadol HCl 50 mg 06/02/19 07:15 06/06/19 08:55 Ultram PO 50 mg QID PRN Administration Moderate Pain (4-6) - Exam General Appearance: awake alert Neck: no JVD Heart: RRR, no murmur Respiratory: CTAB, no wheezes Gastrointestinal: soft, normal bowel sounds Extremities: no edema Neurological - other findings: old spastic R hemiplegia, EOM intact Hosp A/P (1) CAD (coronary artery disease) Code(s): I25.10 - ATHSCL HEART DISEASE OF [place] CORONARY ARTERY W/O ANG PCTRS Status: Chronic Qualifiers: Coronary Disease-Associated Artery/Lesion type: [place] artery [place] vs. transplanted heart: [place] heart Associated angina: without angina Qualified Code(s): I25.10 - Atherosclerotic heart disease of [place] coronary artery without angina pectoris (2) Acute on chronic systolic and diastolic heart failure, NYHA class 2 Code(s): I50.43 - ACUTE ON CHRONIC COMBINED SYSTOLIC AND DIASTOLIC HRT FAIL Status: Chronic (3) Peripheral neuropathic pain Code(s): G62.9 - POLYNEUROPATHY, UNSPECIFIED Status: Chronic (4) Chest pain Code(s): R07.9 - CHEST PAIN, UNSPECIFIED Status: Chronic Qualifiers: Ischemic chest pain type: unspecified angina pectoris type (5) DM type 2 (diabetes mellitus, type 2) Status: Chronic Qualifiers: Diabetes mellitus halfway insulin use: with halfway use Chronic kidney disease stage: stage 3 (moderate) (6) HLD (hyperlipidemia) Code(s): E78.5 - HYPERLIPIDEMIA, UNSPECIFIED Status: Chronic Qualifiers: Hyperlipidemia type: unspecified Qualified Code(s): E78.5 - Hyperlipidemia , unspecified (7) HTN (hypertension) Code(s): I10 - ESSENTIAL (PRIMARY) HYPERTENSION Status: Chronic Qualifiers: Hypertension type: essential hypertension Qualified Code(s): I10 - Essential (primary) hypertension (8) History of left below knee amputation Code(s): Z89.512 - ACQUIRED ABSENCE OF LEFT LEG BELOW KNEE Status: Chronic (9) PVD (peripheral vascular disease) Code(s): I73.9 - PERIPHERAL VASCULAR DISEASE, UNSPECIFIED Status: Chronic - Plan cont ASA, statin, b-bonny, etc discuss with CM
[2019-06-11] MEDS: Isosorbide Mononitrate (ER) 30 MG TAB PO SCH (09:24)
[2019-06-11] MEDS: Gabapentin 400 MG CAP PO SCH ×2 (09:24→14:21)
[2019-06-11] MEDS: Tamsulosin HCl 0.4 MG CAP PO SCH (09:24)
[2019-06-11] MEDS: Carvedilol 6.25 MG TAB PO SCH (09:24)
[2019-06-11] MEDS: Ferrous Sulfate 325 MG TAB PO SCH (09:24)
[2019-06-11] MEDS: Aspirin 81 mg Enteric Coated Tablet PO SCH (09:24)
[2019-06-11] MEDS: Insulin Glargine 8 UNITS in Pre-Filled Syringe 1 EACH SC SCH (09:25)
[2019-06-11] MEDS: Clopidogrel Bisulfate 75 MG TAB PO SCH (09:25)
[2019-06-11] MEDS ORDERED: Furosemide 40 MG/4 ML VIAL SLOW IVP SCH (10:45)
[2019-06-11 12:22] LABS: Anion Gap 16 mmol/L (10-20); BUN (Urea Nitrogen) 41 mg/dL (8.4-25.7); Calc. Creatinine Clearance 47 mL/min (70-130); Calcium 8.4 mg/dL (7.8-10.44); Carbon Dioxide 22 mmol/L (22-29); Chloride 102 mmol/L (98-107); Estimated GFR-MDRD 39; Glucose 124 mg/dL (70-105); Potassium 4.8 mmol/L (3.5-5.1); Sodium 135 mmol/L (136-145)
[2019-06-11 14:06] LABS: Bilirubin Negative (Negative); Blood, Urine Negative (Negative); Clarity Clear (Clear); Glucose, Urine (Dipstick) Normal (Negative); Leukocyte Negative Leu/uL (Negative); Nitrite Negative (Negative); Protein, Urine (Dipstick) 50 mg/dL (Neg-Trace); RBC/HPF 0-3 HPF (0-3); Squamous Epithelial 0-3 HPF (0-3); Urobilinogen 6 mg/dL (Less than 2); WBC/HPF 0-3 HPF (0-3)
[2019-06-11 14:19] LABS: Bacteria/HPF 1+ HPF (None Seen)
[2019-06-11 14:20] LABS: Sperm/HPF Rare HPF (None Seen)
[2019-06-11] MEDS: traMADol HCl 50 MG TAB PO PRN (14:21)
[2019-06-11 17:18] VITALS: BP 137/69; TEMP 98
--- NOTE | 2019-06-12 07:14 | DIS ---
DATE OF ADMISSION: 06/02/2019 DATE OF DISCHARGE: 06/11/2019 [facility] Call Admission for [facility] for [facility]. FINAL DIAGNOSES: 1. Non-ST elevation myocardial infarction. 2. Coronary artery disease. 3. Cardiomyopathy. 4. Diabetes mellitus, type 2 with chronic kidney disease, stage 3. 5. Hypertension. 6. Peripheral vascular disease. 7. Tobacco abuse. DISCHARGE MEDICATIONS: 1. Plavix 75 mg a day. 2. Ranexa 500 mg twice a day. 3. Albuterol 2 puffs q.4 hours p.r.n. 4. Lipitor 40 mg a day. 5. Coreg 6.25 mg twice a day. 6. Gabapentin 300 mg 3 times a day. 7. Lasix 40 mg twice a day. 8. Lantus 8 units subcu daily. 9. Protonix 40 mg a day. 10. Imdur 30 mg a day. 11. DuoNeb 3 mL one t.i.d. 12. Tramadol 50 mg p.o. q.6 hours p.r.n. 13. Anoro Ellipta one inhalation daily. 14. Flomax 0.4 mg a day. 15. Zoloft 50 mg at night. 16. Ranitidine 150 mg b.i.d. ALLERGIES: NO KNOWN DRUG ALLERGIES. DIET: Diabetic diet. CODE STATUS: Full. PENDING AT THE TIME OF DISCHARGE: Nothing. CONSULTATIONS: 1. Blas Fregoso MD, Cardiology. 2. Jaylan Tavares MD, Nephrology. 3. Ross Boucher MD, Neurology. PROCEDURES: None. HOSPITAL COURSE: The patient admitted to the [facility] through [facility]. The patient returned with chest pain and done a recent cardiac cath at [facility], where they told him there was no intervention except medical. He is admitted with a non-ST elevation [place], coronary artery disease, acute on chronic diastolic heart failure, dyslipidemia, depression, diabetes mellitus type 2 with chronic kidney disease stage 3, and hypertension. Initial laboratory; white count 5.6, hemoglobin 12.0, and platelet count 113,000. Initial INR 1.1. Sodium 132, potassium 5.2, BUN 32, creatinine 1.83, and blood sugar 388. Troponin 0.045, 0.032, 0.012, seen in consultation on 06/02/[address] Blas Fregoso. Recommended IV heparin, IV nitroglycerin if possible. He was seen in by Dr. Jaylan Young on 06/03/2019, 06/06/2019. The patient had episodes of double vision and dizziness. CAT scan showed no acute abnormality. He was seen by Neurology, who suggested this was monocular double vision from his diabetes and corneal edema. The patient stabilized during his hospital stay. Blood sugars were followed, proved to be somewhat labile. At the time of discharge, the patient complains only of some weakness in his legs. His neurological exam was consistent with an old stroke affecting the right side of his body. His vital signs are stable. He is being transferred to [facility] under the care of Dr. Torres for further therapy. His prognosis is very poor as he has diffuse coronary artery vasculopathy with no available structural intervention. Job ID: [id number]
== END 2019-06-11 18:08 | DRG 280 ==
LOC: ERS 03:17 → 2NO 04:38
PROVIDERS: ADMIT Internal Medicine Cardiovascular Disease; ATTEND Internal Medicine Cardiovascular Disease
DX: I21.4 Non-ST elevation (NSTEMI) myocardial infarction (principal); I50.43 Acute on chronic combined systolic (congestive) and diastolic (congestive) heart failure; N17.9 Acute kidney failure, unspecified; I13.0 Hypertensive heart and chronic kidney disease with heart failure and stage 1 through stage 4 chronic kidney disease, or unspecified chronic kidney disease; I25.5 Ischemic cardiomyopathy; E11.22 Type 2 diabetes mellitus with diabetic chronic kidney disease; N18.3 Chronic kidney disease, stage 3 (moderate); F17.210 Nicotine dependence, cigarettes, uncomplicated; E11.51 Type 2 diabetes mellitus with diabetic peripheral angiopathy without gangrene; H53.2 Diplopia; R51 Headache; J44.9 Chronic obstructive pulmonary disease, unspecified; E78.5 Hyperlipidemia, unspecified; Z89.512 Acquired absence of left leg below knee; Z86.73 Personal history of transient ischemic attack (TIA), and cerebral infarction without residual deficits; I48.91 Unspecified atrial fibrillation; I25.119 Atherosclerotic heart disease of native coronary artery with unspecified angina pectoris; F41.9 Anxiety disorder, unspecified; F32.9 Major depressive disorder, single episode, unspecified; I24.9 Acute ischemic heart disease, unspecified
CPT/HCPCS: 36415; 36416; 70450; 71045; 80048; 80053; 81003; 81015; 82553; 84484; 85025; 85610; 85730; 93005; 94640; 96365; 96366; 96375; 96376; J1200; J1644; J1815; J1885; J2001; J2405; J2765; J7620; J8597; Q0162

== ENCOUNTER 2019-06-12 19:53 | Emergency (ER) | payer MEDICARE ==
--- NOTE | 2019-06-12 21:27 | CT ---
CT HEAD WITHOUT CONTRAST: 06/12/19 HISTORY: Fall. COMPARISON: 06/07/19. Ventricles have normal size and position. No evidence of intracranial hemorrhage. No mass, edema, inf arct or other acute process. Sinuses are clear. IMPRESSION: No acute abnormality. POS: AGW
--- NOTE | 2019-06-12 21:28 | RAD ---
LEFT SHOULDER: 06/12/19 Three views. HISTORY: Injury. No evidence of fracture or dislocation. Degenerative changes are noted. IMPRESSION: No acute findings. POS: ZENIAW
--- NOTE | 2019-06-12 21:29 | RAD ---
RIGHT KNEE: 06/12/19 Four views. HISTORY: Injury. Degenerative changes. No fracture. No joint effusion. IMPRESSION: No acute fracture. POS: AGW
--- NOTE | 2019-06-12 21:30 | RAD ---
AP PELVIS: 06/12/19 HISTORY: Fall. FINDINGS/IMPRESSION: There is deformity of the right femoral head and neck which is stable when compared to films dating b ack to 2016. No acute fracture identified. POS: AGW
--- NOTE | 2019-06-12 21:32 | CT ---
CT CERVICAL SPINE: 06/12/19 HISTORY: Fall. FINDINGS: Degenerative and postoperative changes cervical spine noted. Anterior plate and screws transfix C4, C 5 and C6 with interbody fusion. Degenerative changes at the other disc levels. No evidence of cervica l spine fracture identified. IMPRESSION: Postoperative and degenerative changes noted. No evidence of acute fracture. POS: AGW
--- NOTE | 2019-06-12 21:49 | CT ---
CT OF THE LUMBAR SPINE: 06/12/19 Axial tomograms obtained with multiplanar reconstruction. INDICATIONS: Fall in bathroom. Severe degenerative change of the lumbar spine. Loss of disc space with degenerative disc changes at all levels. Mild anterolisthesis at L4-5 and slight anterolisthesis of L5-S1. Mild wedging at T12 whi ch appears old. No evidence of acute injury or acute compression identified. Postoperative changes ar e seen posteriorly with severe posterior hypertrophic change. Moderate central canal stenosis at L3-4 and moderate central canal stenosis at L4-5. There is foraminal stenosis at L3-4, L4-5 and L5-S1 lev els. IMPRESSION: Degenerative and postoperative changes lumbar spine. No acute fracture identified. POS: AGW
--- NOTE | 2019-06-12 21:52 | CT ---
CT THORACIC SPINE: 06/12/19 HISTORY: Fall. Degenerative changes of the thoracic spine. Anterior wedging of all lower thoracic vertebrae with los s of disc space and bridging osteophytes. There is no evidence of acute fracture identified. There is abnormal osteopenia involving the mid and lower thoracic vertebrae. There is an abnormal mot tled appearance for this patient's age. Infiltrative processes such as metastasis or multiple myeloma should be considered. IMPRESSION: No acute fracture. Abnormal osteopenia and lucency involving the thoracic vertebrae for this patient' s age. Recommend clinical correlation and workup as indicated. POS: ESPINOZA
[2019-06-12] MEDS ORDERED: Fentanyl 100 MCG/2 ML VIAL ONE (22:53)
== END 2019-06-13 03:59 ==
LOC: ERS 19:53
DX: S00.81XA Abrasion of other part of head, initial encounter (principal); M54.5 Low back pain; M54.6 Pain in thoracic spine; E11.9 Type 2 diabetes mellitus without complications; I25.2 Old myocardial infarction; F17.210 Nicotine dependence, cigarettes, uncomplicated; E78.00 Pure hypercholesterolemia, unspecified; F32.9 Major depressive disorder, single episode, unspecified; Z79.899 Other long term (current) drug therapy; W01.0XXA Fall on same level from slipping, tripping and stumbling without subsequent striking against object, initial encounter
CPT/HCPCS: 70450; 72125; 72128; 72131; 72170; 96374; J3010

== ENCOUNTER 2019-07-22 15:40 | Inpatient (IN) | payer MEDICARE ==
[2019-07-22 17:37] LABS: #Lymphocytes 0.4 thou/uL (1.20-3.40); #Monocytes 0.4 thou/uL (0.11-0.59); #Neutrophils 4.2 thou/uL (1.40-6.50); %Basophils 0.4 % (0.0-1.0); %Eosinophils 0.8 % (0.0-10.0); %Lymphocytes 8.6 % (21.0-51.0); %Monocytes 7.5 % (0.0-10.0); %Neutrophils 82.8 % (42.0-75.0); Hemoglobin 8.6 g/dL (14.0-18.0); Mean Corpuscular Hemoglobin 31.9 pg (27.0-31.0); Mean Platelet Volume 11.4 fL (7.4-10.4); Platelet Count 52 thou/uL (130-400); RBC Distribution Width 14.6 % (11.5-14.5); Red Blood Cell (RBC) Count 2.68 mill/uL (4.70-6.10)
--- NOTE | 2019-07-22 17:47 | RAD ---
PORTABLE CHEST: History: Mental status change. Comparison: 06-02-19 FINDINGS: Cardiomegaly. Vascular congestion with interstitial and hazy alveolar edema which has increased. Smal l bilateral effusions. IMPRESSION: Congestive changes with edema has developed since the prior exam. There are nodular opacities through out both lungs which could represent metastatic deposits. POS: AGW
[2019-07-22 17:49] LABS: ALT (SGPT) 51 U/L (8-55); AST (SGOT) 112 U/L (5-34); Albumin 1.9 g/dL (3.5-5.0); Alkaline Phosphatase 970 U/L (40-110); Anion Gap 12 mmol/L (10-20); BUN (Urea Nitrogen) 44 mg/dL (8.4-25.7); Bilirubin, Total 13.9 mg/dL (0.2-1.2); Calc. Creatinine Clearance 0 mL/min (70-130); Carbon Dioxide 18 mmol/L (22-29); Chloride 109 mmol/L (98-107); Estimated GFR-MDRD 17; Globulin 4.1 g/dL (2.4-3.5); Glucose 83 mg/dL (70-105); Sodium 135 mmol/L (136-145)
[2019-07-22 18:00] LABS: Anisocytosis SLIGHT = 6-15 cells (100X) (0-5/hpf); MDiff Complete? YES; Platelet Morphology Comment Appears Decreased; Polychromasia SLIGHT = 2-3 cells (100X) (0-2/hpf)
--- NOTE | 2019-07-22 19:36 | CT ---
CT THORAX NONCONTRAST CT ABDOMEN NONCONTRAST CT PELVIS NONCONTRAST: DATE: 07/22/2019 HISTORY: 59-year-old male with generalized weakness. COMPARISON: The only prior CT of abdomen and chest is a aortic dissection protocol study from 12/24/2008. FINDINGS: New finding of large number of bilateral pulmonary noncalcified nodules throughout the upper lobes, l ower lobes, and right middle lobe. Additionally, there is a broad but faint, groundglass region of infiltrate involving anterior segment of right upper lobe. Similar but much less prominent, subtle bagley ch finding in anterior segment of left upper lobe. Small posterior loculated pleural effusion plus thickening of visceral and parietal pleura surroundin g it. Small broad, posterior pleural-based airspace density in left lower lobe abutting it, probably passiv e atelectasis. Contralateral smaller right pleural effusion. Abutting its posteromedial surface, at the right posterior costophrenic angle, there is a focal 3 x 2 x 3 cm soft tissue density pulmonary lesion, which could be small focal pneumonia or neoplastic tumor. Heavy atherosclerotic calcification and or stents throughout all coronary arteries. No thoracic aorti c aneurysm. Trachea and bilateral mainstem bronchi are patent and clear. Left-sided generator for left subclavian AICD. Nonspecific mildly enlarged bilateral hilar and mediastinal lymph nodes. Small amount of free fluid around liver and spleen. Moderate to large amount of free fluid at pelvic inlet. Gallbladder is distended and filled with large volume of hyperdense material. This has the appearance of delayed excretion of IV contrast material, but the patient apparently has not received any iodinated contrast recently based on survey of synapse PACS. Severe mural thickening of colon contiguously from cecum through ascending colon, entire transverse c olon, entire descending colon, to proximal sigmoid colon. There may or may not be sparing of mid sigmoid colon. Mural thickening resumes in the rectum. No small bowel dilation. Unremarkable urinary bladder. Vertically oriented stent in common bile duct. Pneumobilia in common hepatic duct. Mildly nodular margins of liver. No abdominal aortic aneurysm. Extensive atherosclerotic calcification of abdominal aorta and all of its branches. No hydronephrosis. No splenomegaly. Questionable soft tissue density mass at head of pancreas, difficult to evaluate with lack of IV cont rast and lack of oral contrast. No pancreatic ductal dilation. IMPRESSION: 1. Diffuse pancolitis. Uncertain whether this is infectious colitis, inflammatory colitis, or ischemi c colitis. 2. Very large number of small noncalcified pulmonary nodules throughout all lung friedman: Differential diagnosis is pulmonary metastatic disease versus infection such as pulmonary histoplasmosis or miliary tuberculosis. 3. Moderate volume of ascites. 4. Anasarca. 5. Small loculated left pleural effusion. Possibility of empyema. 6. A 3 cm masslike pulmonary opacity at posterior base of right lower lobe: Pneumonia versus neoplasm . 7. Questionable hepatic cirrhosis. 8. Gallbladder is filled and distended with large amount of hyperdense material. See above comments. 9. Biliary stent in common bile duct. 10. Questionable mass at head of pancreas.
[2019-07-22] MEDS ORDERED: Aspirin Chewable 81 MG TAB ONE (20:18)
[2019-07-22 20:30] LABS: Actual Bicarbonate (HCO3a) 19.1 mEq/L (22-28); Analyzer IN Cardio ER; Base Excess (BEa) -6.2 mEq/L (-2.0 to +3.0); CO2 Tension 37.1 mmHg (35.0-45.0); Calcium, Ionized 1.18 mmol/L (1.12-1.30); Carboxyhemoglobin (COHb) 0.9 gm% (0.0-3.0); Hemoglobin (Hb) 9.5 g/dL (14.0-18.0); O2 Tension (PaO2) 70.3 mmHg (80.0-100.0); Potassium - ABG Lab 3.96 mmol/L (3.70-5.30); Puncture Site LBA; pH, Arterial 7.33 (7.35-7.45)
--- NOTE | 2019-07-22 20:30 | CT ---
CT BRAIN NONCONTRAST: DATE: 07/22/2019 HISTORY: 59-year-old male with altered mental status and generalized weakness. FINDINGS: There is no evidence of acute intra-axial or extra-axial hemorrhage. There is no midline shift or any other mass effect. There is no extra-axial fluid collection. There is no evidence of obstructive hydrocephalus. Calvarium is intact. Many of the right mastoid air cells are opacified. Mastoid antra and bilateral middle ear cavities are clear. Sphenoid, ethmoid, and frontal sinuses are clear. IMPRESSION: 1. No acute intracranial findings. 2. Right mastoid effusion.
[2019-07-22 20:31] LABS: ALV-art Gradient 82.965 (0-20)
[2019-07-22 20:45] LABS: Troponin I 0.021 ng/mL (< 0.028)
[2019-07-22] MEDS ORDERED: Dextrose 5% in Water 1,000 ML IV PRN (20:49)
[2019-07-22] MEDS ORDERED: Insulin Regular 300 UNITS/3 ML VIAL SC PRN ×2 (20:49)
[2019-07-22] MEDS ORDERED: Dextrose 50% Abboject 50 ML SYRINGE SLOW IVP PRN (20:49)
[2019-07-22] MEDS ORDERED: Calcium Carbonate 500 MG ChewTAB PO PRN (20:54)
[2019-07-22] MEDS ORDERED: Ondansetron ODT 4 MG TAB PO PRN (20:54)
[2019-07-22] MEDS ORDERED: Ondansetron PF 4 MG/2 ML Vial IVP PRN (20:54)
[2019-07-22 20:59] LABS: INR-International Normal Ratio 1.8; PTT 48.6 SEC (22.9-36.1); Prothrombin Time 20.8 SEC (12.0-14.7)
[2019-07-22] MEDS ORDERED: Meropenem 1 GM in Sodium Chloride 0.9% 100 ML IVPB SCH (21:00)
--- NOTE | 2019-07-22 21:48 | HP ---
PRIMARY CARE PHYSICIAN: Cannot verify. CHIEF COMPLAINT: Generalized weakness with altered mentation. HISTORY OF PRESENT ILLNESS: The patient is a 59-year-old male with coronary artery disease, hypertension, peripheral vascular disease, and diabetes mellitus type 2, presented to the emergency room with altered mentation along with generalized weakness. Please note that there is no family at the bedside. Not much information is available from the patient. History was obtained from the ER chart. The patient reported to the ER physician that he has pancreatic cancer that has metastasized. There is no mention of pancreatic cancer in his last H and P or last discharge summary. Again, not much information is available from the patient due to current mentation. In the emergency room, initial vital signs showed temperature 97.7, respirations of 15, pulse of 69 with a blood pressure of 116/65 with O2 saturation 98% on room air. His creatinine in the emergency room was 3.6 with a baseline creatinine of 0.94 three months ago. He underwent a CT scan of the chest, abdomen, and pelvis that was consistent with diffuse bennett colitis with multiple pulmonary nodules, moderate volume of ascites, anasarca. Pulmonary opacity in the posterior base of the right lower lobe, pneumonia versus neoplasm, hepatic cirrhosis with biliary stent in the common bile duct. There was questionable mass in the head of the pancreas. He denies any other complaints. PAST MEDICAL HISTORY: 1. Coronary artery disease. 2. Peripheral vascular disease. 3. History of tobacco abuse. 4. Hypertension. 5. Recent hospitalization for [id number] [place]. 6. Chronic kidney disease stage 3. 7. COPD, on home oxygen. 8. History of CVA. PAST SURGICAL HISTORY: 1. Right carotid endarterectomy. 2. Coronary artery bypass grafting with numerous stent placements. 3. Biliary stent placement. 4. Left BKA. 5. Right partial foot amputation. 6. Spinal surgery. 7. AICD placement. 8. Right rotator cuff surgery. ALLERGIES: NO KNOWN DRUG ALLERGIES. SOCIAL HISTORY: The patient is full code. He has a [id number]-oacv smoking history. He has 2 children. CURRENT HOME MEDICATIONS: The patient is unable to provide the list of his home medications. FAMILY HISTORY: Positive for diabetes and cancer. REVIEW OF SYSTEMS: Cannot be obtained from the patient due to current mentation. PHYSICAL EXAMINATION: VITAL SIGNS: As discussed above. GENERAL: A 59-year-old male, ill-appearing, with altered mentation. HEENT: Sclera icteric. Dry mucous membranes. No oral lesion. NECK: Supple. No JVD. No neck stiffness. LUNGS: Showed diminished air entry at bilateral bases with scattered rhonchi and rales. No wheezing. No accessory muscle use. HEART: S1, S2 present. Regular rate and rhythm. No rubs or gallops. ABDOMEN: Soft, nontender. Bowel sounds present. No rebound or guarding. No costovertebral angle tenderness. EXTREMITIES: The patient is status post left BKA with dressing over the wound at the stump. He also has partial amputation in the right foot. There was no significant edema. NEUROLOGY AND PSYCHIATRY EXAMINATION: Could not be reliably done due to current mentation. SKIN: Warm and dry, jaundiced. LYMPH NODES: No palpable lymph nodes in the neck. PERIPHERAL VASCULAR: Radial pulses palpable bilaterally. MUSCULOSKELETAL: No joint swelling or tenderness. LABORATORY FINDINGS: Chemistries showed bilirubin of 13.9 with AST of 112, ALT of 51, alkaline phosphatase 970. His total bilirubin 2 months ago was 0.5. Sodium 135, potassium 4, chloride 109, bicarb 18. CBC showed WBC 5.0 with hemoglobin 8.6, hematocrit 25.2, platelets of 52. CT scan of the chest, abdomen, and pelvis as discussed above. Chest x-ray, by my review, showed increased markings along with nodular opacities and possible pulmonary vascular congestion. CT scan of the brain has been done, report is pending at this time. EKG, by my review, showed left ventricular hypertrophy with nonspecific ST-T wave changes. IMPRESSION: 1. Toxic metabolic encephalopathy, multifactorial. 2. Acute hepatic failure, etiology unclear. 3. Acute kidney injury on chronic kidney disease stage 3. 4. Metabolic acidosis. 5. Hyponatremia. 6. Anemia. 7. Thrombocytopenia, which is chronic. 8. Ascites with questionable hepatic cirrhosis. 9. Questionable mass of the head of the pancreas. 10. Small loculated left pleural effusion. 11. Pulmonary opacity at the posterior base of the right lower lobe, pneumonia versus neoplasm. 12. Gallbladder distention with large amount of hyperdense material. 13. Coronary artery disease. 14. Diabetes mellitus type 2. 15. Hypertension. 16. Peripheral vascular disease, status post left below-knee amputation. 17. Tobacco dependence. 18. Chronic obstructive pulmonary disease, on home oxygen. 19. Anxiety. 20. Gastroesophageal reflux disease. 21. Chronic systolic heart failure, ejection fraction 30% to 35%, status post AICD. 22. History of CVA. PLAN: The patient will be monitored in the intermediate care unit. We will get right upper quadrant ultrasound. We will get blood cultures. ABGs will be obtained. We will confirm home medications and start accordingly. We will check LFTs in a.m. We will consult Gastroenterology and Pulmonary. We will start empiric antibiotics. We will keep the patient n.p.o. We will check cortisol level. Add nebulizer treatment as needed. O2 supplementation. Neuro checks. Palliative Care consultation. Plan of care was discussed with the patient in detail. We will try to contact the family. Job ID: [id number]
[2019-07-22] MEDS: Morphine 2 MG/ML SYRINGE SLOW IVP PRN (22:54)
[2019-07-22] MEDS: Meropenem 500 MG in Sodium Chloride 0.9% 100 ML IVPB SCH (23:39)
[2019-07-22] MEDS: Sodium Bicarbonate 50 MEQ in Dextrose 5 %-0.45 % NaCl 1,000 ML IV SCH (23:39)
--- NOTE | 2019-07-23 03:51 | PDOC.EVN ---
Event Note - Event Note Event Note: spoke with pt and family about code status. Pt was recently dx with pancreatic cancer at [facility]. He is suppose to see oncology but he states that he has been told his prognosis is poor. He wants a second opinion at [facility]. I also explained to him about resuscitation he currently wants to be full code. I did explain that given his multiple medical problems his overall prognosis will be poor if needed to be resuscitated. He understands and wants to think about it.
[2019-07-23 05:09] LABS: #Lymphocytes 0.5 thou/uL (1.20-3.40); #Monocytes 0.4 thou/uL (0.11-0.59); #Neutrophils 3.9 thou/uL (1.40-6.50); %Eosinophils 0.7 % (0.0-10.0); %Lymphocytes 9.4 % (21.0-51.0); %Monocytes 7.3 % (0.0-10.0); %Neutrophils 82.7 % (42.0-75.0); Hemoglobin 8.5 g/dL (14.0-18.0); Mean Corpuscular HGB CONC 33.8 g/dL (32.0-36.0); Mean Corpuscular Hemoglobin 31.9 pg (27.0-31.0); Mean Corpuscular Volume 94.2 fL (78.0-98.0); Mean Platelet Volume 11.3 fL (7.4-10.4); Platelet Count 49 thou/uL (130-400); RBC Distribution Width 14.6 % (11.5-14.5); Red Blood Cell (RBC) Count 2.66 mill/uL (4.70-6.10); White Blood Cell (WBC) Count 4.8 thou/uL (4.8-10.8)
[2019-07-23 05:27] LABS: ALT (SGPT) 49 U/L (8-55); AST (SGOT) 103 U/L (5-34); Albumin 1.9 g/dL (3.5-5.0); Alkaline Phosphatase 991 U/L (40-110); Anion Gap 9 mmol/L (10-20); BUN (Urea Nitrogen) 42 mg/dL (8.4-25.7); BUN/Creatinine Ratio 11.76; Calc. Creatinine Clearance 25 mL/min (70-130); Calcium 7.9 mg/dL (7.8-10.44); Carbon Dioxide 22 mmol/L (22-29); Chloride 109 mmol/L (98-107); Estimated GFR-MDRD 18; Glucose 170 mg/dL (70-105); Magnesium 2.3 mg/dL (1.6-2.6); Phosphorus 3.5 mg/dL (2.3-4.7); Potassium 3.8 mmol/L (3.5-5.1); Protein, Total 5.9 g/dL (6.0-8.3); Sodium 136 mmol/L (136-145)
[2019-07-23 05:50] LABS: Bilirubin, Direct 11.1 mg/dL (0.1-0.3)
[2019-07-23 05:57] LABS: Bacteria/HPF None Seen HPF (None Seen); Bilirubin 2+ (Negative); Blood, Urine 1+ (Negative); Clarity Turbid (Clear); Glucose, Urine (Dipstick) Normal (Negative); Leukocyte Negative Leu/uL (Negative); Nitrite Negative (Negative); Protein, Urine (Dipstick) 50 mg/dL (Neg-Trace); RBC/HPF 0-3 HPF (0-3); Squamous Epithelial 0-3 HPF (0-3); Urobilinogen Normal mg/dL (Less than 2); Yeast-Budding 1+ HPF (None Seen)
[2019-07-23 05:58] LABS: Unclassified Crystals 3+ HPF (None Seen)
--- NOTE | 2019-07-23 08:27 | ULT ---
Hepatic ultrasound with duplex evaluation INDICATION: Abnormal LFTs TECHNIQUE: Grayscale, color Doppler and spectral Doppler images were obtained of the liver, gallbladd er, common bile duct, pancreas, right kidney and spleen. COMPARISON: CT of the chest, abdomen and pelvis dated July 22, 2019 FINDINGS: Liver: The liver demonstrates a cirrhotic morphology and coarse echotexture. No focal hepatic lesion is evident. Hepatic vasculature: Left hepatic vein: Appropriate flow. Middle hepatic vein: Appropriate flow. Right hepatic vein: Appropriate flow. Hepatic artery: Hepatopedal flow. Main portal vein: Hepatopedal flow. Right portal vein: Hepatopedal flow. Left portal vein: Hepatopedal flow. Splenic artery: Appropriate flow. Splenic vein: Hepatopedal flow. Aorta: Appropriate flow. IVC: Appropriate flow. Gallbladder: Distended with gallbladder wall thickening and pericholecystic fluid. No sonographic Mur phy's sign reported. There is intraluminal sludge demonstrated. Common bile duct: 6.0 mm. There is a common bile duct stent in place. Pancreas: Obscured Right kidney: Visualized right kidney demonstrated no focal renal lesion or hydronephrosis Spleen: The spleen measured 15.25cm in length. IMPRESSION: 1. Cirrhosis with findings of portal hypertension 2. Appropriate hepatopedal flow 3. Gallbladder wall thickening, gallbladder sludge with pericholecystic fluid may reflect sequela of the patient's cirrhosis; however, an acute cholecystitis cannot be entirely excluded. No sonographic Coleman sign is reported. Findings are equivocal on the current examination. Recommend cor relation with the clinical exam. If clinically indicated, HIDA scan may be helpful for further evaluation for cystic duct obstruction.
[2019-07-23] MEDS: Meropenem 500 MG in Sodium Chloride 0.9% 100 ML IVPB SCH ×2 (10:22→21:22)
[2019-07-23] MEDS: Famotidine/PF 20 mg/2ml Vial SLOW IVP SCH (10:22)
[2019-07-23] MEDS: Sodium Bicarbonate 50 MEQ in Dextrose 5 %-0.45 % NaCl 1,000 ML IV SCH ×2 (10:22→21:20)
[2019-07-23] MEDS: Morphine 2 MG/ML SYRINGE SLOW IVP PRN ×2 (11:48→21:21)
[2019-07-23 12:29] LABS: Creatinine, Urine 77.96 mg/dL (63-166)
--- NOTE | 2019-07-23 13:27 | PDOC.EVN ---
Event Note - Event Note Event Note: Update - Patient was discharged from [facility] on 07/18. He was diagnosed with Pancreatic cancer in the head. He underwent ERCP with stent placement. He is scheduled to see Oncology as outpt. Bilirubin at discharge was 8.6. Creatinine at dc was 1.5.
[2019-07-23 14:09] VITALS: BMI 25.3
--- NOTE | 2019-07-23 16:31 | CON ---
DATE OF CONSULTATION: REASON FOR CONSULTATION: Elevated creatinine. HISTORY OF PRESENT ILLNESS: A very pleasant 59-year-old gentleman, who was admitted to the hospital yesterday for generalized weakness and altered mentation. The patient's baseline creatinine had increased to 3.5, prior baseline was 1.8 on June 11, when the patient was diagnosed with pancreatic cancer. PAST MEDICAL HISTORY: Significant for coronary artery disease, hypertension, peripheral vascular disease, COPD, CVA, right carotid endarterectomy, left BKA, bilateral stent placement, amputation, spinal surgery, and AICD. ALLERGIES: REVIEWED. HOME MEDICATIONS: List reviewed. HOSPITAL MEDICATIONS: List reviewed. REVIEW OF SYSTEMS: A 15-point review of system was performed, negative except for positives noted above. GENERAL: HEAD: NECK: No swelling or lumps. NOSE: No epistaxis or discharge. EYES: No diplopia or pain. RESPIRATORY: CARDIOVASCULAR: GASTROINTESTINAL: /STOPPER SETTER: MUSCULOSKELETAL: No joint pain. NEUROPSYCHIATIC SYSTEMS: No suicidal ideation. No ideation. SKIN: Denies any rash or ulcer. CONSTITUTIONAL: No fever or chills. PHYSICAL EXAMINATION: CONSTITUTIONAL: The patient is awake and alert. VITAL SIGNS: Pulse 71, breathing 16, and blood pressure 118/65. GENERAL APPEARANCE AND MENTAL STATUS: Fair. HEAD/NECK: Normocephalic. Atraumatic. EYES: EOMI. No deformity. EARS: Clear. No ulcers. NOSE: Intact. No lesions. MOUTH: Clear. No discharge. THROAT: Clear. No exudate. LUNGS: Clear. No crackles. CARDIAC: S1, S2. No rub. ABDOMEN: Benign. Bowel sounds positive. GENITALIA/RECTUM: Novak absent. BACK/EXTREMITIES: Edema 0+. NEUROLOGICAL: Alert and motor intact. SKIN: LYMPHATICS: LABORATORY DATA: Lab show creatinine 3.5. ASSESSMENT AND PLAN: Acute kidney injury with chronic kidney disease most likely due to multiorgan failure in the setting of possibly pneumonia, most likely acute tubular necrosis. No indication for dialysis. Continue gentle hydration. Hypertension, stable. Anemia, stable. Congestive heart failure, overall prognosis is poor. The patient has pancreatic cancer. Job ID: [id number]
--- NOTE | 2019-07-23 16:31 | PDOC.PALCO ---
Palliative Care Consult - Consult Details Requesting Physician: Dr Henderson Reason for Consult: goals of care, advance directives assistance Family Members Present: None - Pertinent HPI History obtained via review of records and staff as patient has difficulty in communicating secondary to lethargy. Mr Hein is a 59 year old male who presented to the emergency room with altered mental status and weakness. Patient reports recent diagnosis of pancreatic cancer with mets however no mention is noted in past records. CT identified pulmonary nodules, ascites, right lower lobe has pneumonia verses neoplasm, hepatic cirrhosis with biliary stent in bile duct, mass to the head of the pancreas. Patient admitted for medical management of metabolic encephalopathy, and further evaluation. - Social History Smoking Status: Current every day smoker Smoking: greater than 1 pack/day Living Situation: other (Unknown specifics of living condition. ) - Medications MAR Reviewed: Yes - Allergies Allergies/Adverse Reactions: Allergies Allergy/AdvReac Type Severity Reaction Status Date / Time No Known Allergies Allergy Verified 06/02/19 09:20 - Subjective Arousable, however unable to answer questions and falls back to sleep state. Unable to perform ROS secondary to patient mental capacity. - ROS Non Response: due to mental status - Objective Vital Signs: Vital Signs - Most Recent Temp Pulse Resp BP Pulse Ox 97.7 F 71 14 128/69 99 07/23/19 15:37 07/23/19 10:51 07/23/19 10:34 07/23/19 10:51 07/23/19 10:51 Palliative Performance Scale: 30 - Physical Exam Constitutional: confusion, encephalitic, ill appearing HEENT: moist MMs, poor dentition, scleral icterus Deviation from normal: Diminished lung sounds to bases, adventicious bilaterally Cardiovascular: RRR Gastrointestinal: positive bowel sounds Deviation from normal: right partial foot amputation with left amputation with dressing to stump. Neurology: moves all 4 limbs Skin: cap refill <2 seconds Deviation from normal: Dressing to left lower extremity, Deviation from normal: lethargy - Problem List (1) Palliative care encounter Code(s): Z51.5 - ENCOUNTER FOR PALLIATIVE CARE Current Visit: Yes Status: Acute - Plan/Recommendations Plan: Palliative Care RN to reach out to family. Records being requested from [facility]. Patient had stated that he desired to obtain a second opinion from [facility] for cancer treatment/palliation *Attempt to secure records from [facility] *Identify Family, address MPOA and resuscitation status * Assist with goals of care as understanding of disease processes and potential outcomes identified. Please also refer to first aid teacher in Notes section. [40] minutes spent on this encounter with >50% of the time in counseling and coordination of care. Thank you for this very appropriate consult.
--- NOTE | 2019-07-23 16:59 | CON ---
DATE OF CONSULTATION: 07/23/2019 SERVICE: Pulmonary Medicine. REASON FOR CONSULTATION: CU patient. HISTORY OF PRESENT ILLNESS: The patient is a 59-year-old male with past medical history significant for recent diagnosis of pancreatic cancer. Apparently, he was not deemed to be a candidate for any type of intervention. Hospice was recommended. Ultimately, he was discharged from the hospital from [facility] just a couple of days ago. He developed increasing encephalopathy, his girlfriend brought him back to the emergency department. Currently, he is thinking a little bit more clearly. He denies any current fevers or chills. He is not having any significant shortness of breath or chest discomfort. He has a little bit of abdominal discomfort in the left lower quadrant, but outside of that, he is in his usual state of health. PAST MEDICAL HISTORY: 1. Pancreatic cancer, recent diagnosis. 2. Coronary artery disease. 3. Peripheral vascular disease. 4. Hypertension. 5. Dyslipidemia. 6. History of CVA. 7. CKD, stage 3. 8. COPD. 9. Chronic hypoxic respiratory failure. PAST SURGICAL HISTORY: 1. Carotid endarterectomy. 2. Coronary artery bypass graft. 3. Multiple cardiac catheterizations with PCI placement. 4. Biliary stent placement, recent. 5. Left BKA. 6. Ray amputation of right foot. 7. Spine surgery. 8. AICD placement. 9. Right rotator cuff surgery. ALLERGIES: NO KNOWN DRUG ALLERGIES. MEDICATIONS: List of his inpatient medications has been reviewed. No specific updates were made at this time. SOCIAL HISTORY: He has greater than a 50 pack-year history of smoking. He denies any illicit drugs or alcohol currently. He has 2 children. FAMILY HISTORY: Noncontributory. REVIEW OF SYSTEMS: General; head, ears, eyes, nose, throat; cardiovascular; respiratory; GI; ; musculoskeletal; neurologic; and skin are negative except as mentioned in the HPI. PHYSICAL EXAMINATION: VITAL SIGNS: Afebrile, pulse 71, blood pressure 117/65, respirations 13, and saturation 95% currently on 2.5 L nasal cannula. GENERAL: The patient is awake and alert, in no apparent distress. LUNGS: Decent air entry with a slightly prolonged expiratory phase and minimal wheezing. Dependent crackles are not present. HEART: Normal rate. Regular. ABDOMEN: Soft. There is minimal tenderness to palpation in the left lower quadrant. Bowel sounds are hypoactive. There is no rebound or guarding present. MUSCULOSKELETAL: No cyanosis or clubbing. Trace pitting is present. The left lower extremity is surgically absent. : No Novak catheter. LABORATORY DATA: WBC 4.8, hemoglobin 8.5, and platelets 49,000. INR 1.8. A pH 7.33, pCO2 of 37, and pO2 of 70. Creatinine 3.57, which is well above his baseline of 1.26. Total bilirubin 14 (above baseline of 0.5). Cortisol 11, ammonia 41. Alkaline phosphatase 991. Blood cultures x2 are negative. IMAGIN. Ultrasound of the abdomen demonstrates cirrhosis with portal hypertension. Appropriate hepatopetal flow. Gallbladder is thickened with sludge present. 2. CT of the chest, abdomen, and pelvis demonstrates diffuse pancolitis. Multiple bilateral pulmonary nodules. Moderate ascites. Anasarca is noted. Pancreatic head mass is present with biliary stent in place. 3. CT of the brain demonstrates no acute intracranial abnormality. ASSESSMENT: 1. Metabolic encephalopathy, resolved. 2. Severe sepsis secondary to pancolitis. 3. Acute kidney injury. 4. Pancreatic cancer, widely metastatic. DISCUSSION AND PLAN: We will continue empiric antibiotics directed at GI issues. IV fluids will gently hydrate the patient over the next 24 hours. Hopefully, once his kidney injury resolves, we can get away from this once again. GI and Oncology consultations are both pending. That being said, at this point, he has no requirements for IMCU placement and will be transitioned to the medical unit. 70 minutes have been devoted to this patient in various activities. I personally reviewed all imaging studies and laboratory data noted within this document. For fifty percent of this time, I was interacting with the patient at the bedside or coordinating care with the care team. For the remainder of the time I was immediately available to the patient in the hospital unit. Job ID: [id number] [facility]
--- NOTE | 2019-07-23 21:52 | CON ---
DATE OF CONSULTATION: REASON FOR CONSULTATION: Newly diagnosed cancer. HISTORY OF PRESENT ILLNESS: Mr. Hein is a 59-year-old gentleman with jaundice , who was seen in the IMCU at the request of the daughter, who unfortunately was not present at bedside. Apparently, the patient was recently diagnosed with pancreatic cancer at [facility]. There is no medical records available. He apparently would like a second opinion and we were asked to see him here. On arrival to the emergency room at this facility, the patient underwent a chest, abdomen and pelvis CT, which showed diffuse pancolitis. He had a large number of pulmonary nodules. There was moderate volume ascites, anasarca, loculated left pleural effusion. There was a 3 cm mass in the right lower lobe of the lung. He had a stent in his common bile duct. There was a questionable mass at the pancreas. His brain CT showed a right mastoid effusion. No other findings. On admission, his bilirubin was 13.9 and his alkaline phosphatase was 991. The patient was admitted for toxic metabolic encephalopathy. PAST MEDICAL HISTORY: 1. Coronary artery disease. 2. Peripheral vascular disease. 3. Tobacco use. 4. Hypertension. 5. [place]. 6. Chronic kidney disease. 7. COPD, on home O2. 8. History of CVA. PAST SURGICAL HISTORY: 1. Right carotid endarterectomy. 2. Coronary artery bypass grafting. 3. Biliary stent placement. 4. Left BKA. 5. Spinal surgery. 6. AICD. 7. Rotator cuff repair surgery. ALLERGIES: NO KNOWN DRUG ALLERGIES. HOME MEDICATIONS: Unknown. FAMILY HISTORY: Positive for diabetes and cancer. SOCIAL HISTORY: History of smoking. REVIEW OF SYSTEMS: Unable to obtain secondary to altered mental status. PHYSICAL EXAMINATION: VITAL SIGNS: Temperature 97.7, pulse is 71, respiratory rate 13, BP is 117/65. He is 92% on 2.5 L nasal cannula. GENERAL: Well-developed, well-nourished male. HEENT: Normocephalic, atraumatic. Sclerae icteric. NECK: Supple. CV: Regular rate and rhythm. LUNGS: Clear anterior. ABDOMEN: Distended and soft. Bowel sounds are positive. EXTREMITIES: He has a left BKA. SKIN: Jaundice. HEMATOLOGICAL: No petechiae or purpura. NEUROLOGICAL: The patient is arousable, but is oriented to person only. PERTINENT LABS AND X-RAYS: Current WBCs are 4.8, hemoglobin 8.5, hematocrit 25.1, platelet count is 49,000. He has 82% neutrophils, 9% lymphocytes. PT is 20.8, INR is 1.8, and PTT is 48.6. Sodium is 136, potassium 3.8, chloride 109, CO2 is 22 , BUN is 42, creatinine 3.57, calcium 7.9, phosphorus 3.5, magnesium 2.3, bilirubin is 14, AST is 103, ALT is 49, alkaline phosphatase is 991. His serum total protein is 5.9, albumin 1.9. Radiology per HPI. ASSESSMENT: 1. Newly diagnosed pancreatic cancer at [facility]. 2. Hyperbilirubinemia with jaundice. 3. History of cirrhosis. 4. Toxic metabolic encephalopathy. DISCUSSION: History was obtained from review of medical records as the patient is unable to answer questions and there is no family at bedside. The patient was apparently diagnosed with pancreatic cancer at [facility], but I have no medical records here. We are asked for a second opinion per the chart. We need his medical records sent here or to our office for review. Regardless, he has significant hyperbilirubinemia and CKD with a GFR of 18. He may be a candidate for outpatient Gemzar and Abraxane at reduced doses based on his kidney and liver function. However, his altered mental status must be resolved prior to treatment. All treatment would be palliative as it appears he has stage IV disease. Hospice is also a viable option. Thank you for the consult. We will be happy to see him in the outpatient setting once we have obtained his medical records. Job ID: [id number] MTDD
--- NOTE | 2019-07-23 22:40 | PDOC.HOSPP ---
- Subjective Encounter Date: 07/23/19 Encounter Time: 13:30 Subjective: Patient seen and examined for Encephalopathy. Mentation improving. No N/V/fever or chills. No new complaints. No overnight events - Objective Vital Signs & Weight: Vital Signs (12 hours) Temp Pulse Pulse Pulse Resp BP BP 07/23/19 19:14 07/23/19 19:13 64 22 H 07/23/19 19:06 98.1 F 07/23/19 15:37 97.7 F 07/23/19 11:27 97.7 F 07/23/19 10:51 71 75 128/69 107/69 BP Pulse Ox Pulse Ox Pulse Ox 07/23/19 19:14 98 07/23/19 19:13 98 07/23/19 19:06 07/23/19 15:37 07/23/19 11:27 07/23/19 10:51 112/65 99 96 Weight Admit Weight 176 lb 12.972 oz Weight 176 lb 12.972 oz Most Recent Monitor Data Heart Rate from ECG 68 NIBP 99/69 NIBP BP-Mean 79 Respiration from ECG 17 SpO2 98 I&O: 07/22/19 07/23/19 07/24/19 06:59 06:59 06:59 Intake Total 280 1922 Output Total 400 375 Balance -120 1547 Result Diagrams: 07/24/19 04:22 07/24/19 04:22 Additional Labs: Accuchecks 07/23/19 07/23/19 07/23/19 20:07 16:40 12:06 POC Glucose 147 H 208 H 176 H 07/23/19 07/23/19 08:09 04:18 POC Glucose 181 H 147 H Radiology Reviewed by me: Yes (CT reviewed) EKG Reviewed by me: Yes (Tele SR) Hospitalist ROS - Review of Systems Respiratory: denies: cough, dry, shortness of breath, hemoptysis, SOB with excertion, pleuritic pain, sputum, wheezing, other Cardiovascular: denies: chest pain, palpitations, orthopnea, paroxysmal noc. dyspnea, edema, light headedness, other Gastrointestinal: denies: nausea, vomiting, abdominal pain, diarrhea, constipation, melena, hematochezia, other - Medication Medications: Active Medications Generic Name Dose Route Start Last Admin Trade Name Freq PRN Reason Stop Dose Admin Albuterol/Ipratropium 3 ml 07/23/19 19:00 07/23/19 19:13 Duoneb NEB 3 ml [id number] YRIS Administration Famotidine 20 mg 07/23/19 09:00 07/23/19 10:22 Pepcid SLOW IVP 20 mg DAILY YRIS Administration Sodium Bicarbonate 50 meq/ 1,050 mls @ 100 mls/hr 07/22/19 21:00 07/23/19 21: 20 Dextrose/Sodium Chloride IV 1,050 mls .[id number] YRIS Administration Meropenem 500 mg/ Sodium 100 mls @ 200 mls/hr 07/22/19 22:00 07/23/19 21:22 Chloride IVPB 100 mls 1000,2200 YRIS Administration Insulin Human Regular 0 units 07/22/19 20:49 07/23/19 17:45 Humulin R SC 3 unit .MILD SLIDING SCALE PRN Administration Mild Correctional Scale Morphine Sulfate 2 mg 07/23/19 19:22 07/23/19 21:21 Morphine SLOW IVP 2 mg Q4H PRN Administration Moderate to Severe Pain (6-10) - Exam General Appearance: NAD Heart: RRR, no gallops, no rubs, normal peripheral pulses Respiratory: no wheezes, no rales, no ronchi, normal chest expansion Gastrointestinal: soft, non-tender, normal bowel sounds, no guarding, no rigidity Extremities: no cyanosis, no clubbing Neurological: no new deficit Psychiatric: normal affect, A&O x 3 (intermittent confusion) Hosp A/P - Plan plan discussed w/ family, DVT proph w/SCDs 1. Toxic metabolic encephalopathy, multifactorial. 2. Obstructive jaundice due to Pancreatic CA s/p recent ERCP with stent placement 3. Acute kidney injury on chronic kidney disease stage 3. 4. Metabolic acidosis. 5. Hyponatremia. 6. Anemia. 7. Coronary artery disease. 8. Ascites/coagulopathy/thrombocytopenia due to cirrhosis. 9. Chronic systolic heart failure, ejection fraction 30% to 35%, status post AICD. 10. Small loculated left pleural effusion. 11. Pulmonary opacity at the posterior base of the right lower lobe, pneumonia versus neoplasm. 12. Gallbladder distention with large amount of hyperdense material. 13. Chronic obstructive pulmonary disease, on home oxygen. 14. Diabetes mellitus type 2. 15. Hypertension. 16. Peripheral vascular disease, status post left below-knee amputation. 17. Tobacco dependence. 18. History of CVA. 19. Anxiety. 20. Gastroesophageal reflux disease. PLAN: Clear liqd diet Await GI/Oncology input Cont IVF with bicarb Cont Empiric Atbx Cont other meds Will verify home meds
--- NOTE | 2019-07-24 02:11 | CON ---
DATE OF CONSULTATION: 07/23/2019 CHIEF COMPLAINT: Abdominal pain. HISTORY OF PRESENT ILLNESS: Mr. Hein is a 59-year-old man who was just diagnosed with metastatic pancreatic cancer last week at [facility]. He had a biliary stent placed and was discharged to follow up with Oncology. He was given a limited prognosis at that time. He presented now to the emergency room apparently for 2nd opinion. Currently reports some cramping left upper quadrant abdominal pain. There is some radiation to the back associated with this pain. No nausea or vomiting. No diarrhea, constipation, or blood in the stool. His last bowel movement was yesterday. His family is currently not with him. PAST MEDICAL HISTORY: Coronary artery disease, peripheral vascular disease, hypertension, pancreatic cancer, non-ST elevation SD, chronic kidney disease, COPD on home oxygen, history of stroke. PAST SURGICAL HISTORY: Carotid endarterectomy, coronary artery bypass graft, coronary stents, foot partial amputation on the right, left [id number]-bzk-olfm amputation, back surgery, AICD placement, shoulder surgery, recent biliary stent last week. FAMILY HISTORY: Negative for GI malignancy. SOCIAL HISTORY: No alcohol, tobacco, or drugs. ALLERGIES: NO KNOWN DRUG ALLERGIES. MEDICATIONS: CURRENT MEDICATIONS: 1. Meropenem. 2. Famotidine. At home, he has been on, 1. Insulin. 2. Lasix. 3. Gabapentin. 4. Carvedilol. 5. Hydrocodone. 6. Ranolazine. 7. Protonix. 8. Isosorbide mononitrate. 9. Iron. 10. Sertraline. REVIEW OF SYSTEMS: Negative x10 systems reviewed, except as stated in history of present illness. PHYSICAL EXAMINATION: VITAL SIGNS: Temperature 98.1, blood pressure 109/71, pulse 67. GENERAL: He is in no acute distress. He is oriented to his name and place, but not the year. He is also slow to give answers on his medical history and these are incomplete. HEENT: He is jaundiced. Eyes have scleral icterus. Oropharynx is clear without lesions. No cervical or supraclavicular lymphadenopathy. LUNGS: Clear to auscultation bilaterally. HEART: Regular rate and rhythm without murmur. ABDOMEN: Soft. Mild tenderness in left upper quadrant without guarding. Bowel sounds are present. EXTREMITIES: No lower extremity edema. NEUROLOGIC: Cranial nerves are grossly intact. LABORATORY DATA: Creatinine 3.57, bilirubin 14.0, AST 103, ALT 49, alkaline phosphatase 991, albumin 1.9, INR 1.8, platelets 49, hemoglobin 8.5, white blood cell count 4.8. IMAGING DATA: Thickening of the colon was noted by CT scan. Multiple pulmonary nodules were seen. Anasarca and ascites were noted. 3 cm mass was also noted in the lung. Nodularity of the liver consistent with cirrhosis was seen. Pancreatic mass was noted. However, this was a noncontrast CT. IMPRESSION: 1. Metastatic pancreatic cancer with limited prognosis. 2. Abnormal liver function tests. He has biliary obstruction and has a metal Wallstent in place by imaging. The elevated liver tests might actually be secondary to decompensated cirrhosis rather than biliary obstruction alone. Other possibility would be metastatic disease causing obstructive process within the liver itself. There is no indication for repeat ERCP for intervention regarding the elevated liver tests. 3. Decompensated cirrhosis. His INR is elevated. His platelets are low indicating portal hypertension. He has anasarca and ascites and mild encephalopathy. 4. Acute renal failure with a creatinine greater than 3. 5. Chronic obstructive pulmonary disease, on home oxygen. 6. Severe protein-calorie malnutrition. RECOMMENDATIONS: 1. I will give a trial of lactulose, which can be titrated to 3 soft stools per day to see if this helps with his encephalopathy. 2. We will await Oncology opinion. However, he would have very limited options considering his cirrhosis and renal failure. He has a significantly elevated bilirubin. 3. Add lactulose. 4. Hospice care would be appropriate. I believe he and his family are considering another opinion at [facility]. We will also await final recommendations from our oncology team. Job ID: [id number]
[2019-07-24 05:07] LABS: #Eosinphils 0.1 thou/uL (0.0-0.7); #Lymphocytes 0.4 thou/uL (1.20-3.40); #Monocytes 0.5 thou/uL (0.11-0.59); #Neutrophils 3.6 thou/uL (1.40-6.50); %Basophils 0.4 % (0.0-1.0); %Eosinophils 1.5 % (0.0-10.0); %Lymphocytes 8.7 % (21.0-51.0); %Monocytes 10.4 % (0.0-10.0); %Neutrophils 79.1 % (42.0-75.0); Mean Corpuscular HGB CONC 33.8 g/dL (32.0-36.0); Mean Corpuscular Hemoglobin 32.6 pg (27.0-31.0); Mean Corpuscular Volume 96.4 fL (78.0-98.0); Mean Platelet Volume 11.7 fL (7.4-10.4); Platelet Count 42 thou/uL (130-400); RBC Distribution Width 14.7 % (11.5-14.5); Red Blood Cell (RBC) Count 2.45 mill/uL (4.70-6.10); White Blood Cell (WBC) Count 4.6 thou/uL (4.8-10.8)
[2019-07-24 05:28] LABS: ALT (SGPT) 50 U/L (8-55); AST (SGOT) 107 U/L (5-34); Albumin 1.8 g/dL (3.5-5.0); Alkaline Phosphatase 1110 U/L (40-110); Anion Gap 9 mmol/L (10-20); BUN (Urea Nitrogen) 43 mg/dL (8.4-25.7); BUN/Creatinine Ratio 11.91; Bilirubin, Total 14.9 mg/dL (0.2-1.2); Calc. Creatinine Clearance 25 mL/min (70-130); Calcium 8.1 mg/dL (7.8-10.44); Carbon Dioxide 22 mmol/L (22-29); Chloride 109 mmol/L (98-107); Estimated GFR-MDRD 17; Glucose 137 mg/dL (70-105); Magnesium 2.1 mg/dL (1.6-2.6); Phosphorus 3.7 mg/dL (2.3-4.7); Potassium 3.6 mmol/L (3.5-5.1); Protein, Total 5.9 g/dL (6.0-8.3); Sodium 136 mmol/L (136-145)
[2019-07-24] MEDS: Sodium Bicarbonate 50 MEQ in Dextrose 5 %-0.45 % NaCl 1,000 ML IV SCH (05:42)
[2019-07-24 05:54] LABS: Bilirubin, Direct 10.8 mg/dL (0.1-0.3)
[2019-07-24] MEDS: Meropenem 500 MG in Sodium Chloride 0.9% 100 ML IVPB SCH (09:37)
[2019-07-24] MEDS: Famotidine/PF 20 mg/2ml Vial SLOW IVP SCH (09:37)
[2019-07-24] MEDS: Morphine 2 MG/ML SYRINGE SLOW IVP PRN ×2 (09:38→16:41)
--- NOTE | 2019-07-24 12:04 | PRG ---
DATE OF SERVICE: 07/24/2019 SUBJECTIVE: A 59-year-old gentleman, being seen for acute kidney injury. The patient denies any nausea, vomiting, or chest pain. OBJECTIVE: See above. Awake, alert, in no acute distress. VITAL SIGNS: Pulse 75, breathing 16, blood pressure 108/64. GENERAL APPEARANCE AND MENTAL STATUS: Fair. HEAD/NECK: Normocephalic. Atraumatic. EYES: EOMI. No deformity. EARS: Clear. No ulcers. NOSE: Intact. No lesions. MOUTH: Clear. No discharge. THROAT: Clear. No exudate. LUNGS: Clear. No crackles. CARDIAC: S1, S2. No rub. ABDOMEN: Benign. Bowel sounds positive. GENITALIA/RECTUM: Novak absent. BACK/EXTREMITIES: Edema 0+. NEUROLOGICAL: Alert and motor intact. SKIN: LYMPHATICS: LABORATORY DATA: Showed hemoglobin 8, creatinine 3.68. ASSESSMENT AND PLAN: 1. Acute kidney injury due to acute tubular necrosis, multifactorial, hepatorenal as well as multiorgan failure and decreased effective arterial blood volume. No indication for dialysis. Overall prognosis os poor. Risks versus benefits of dialysis were discussed with the patient. The patient declined renal replacement therapy. 2. Hypertension, stable. 3. Anemia. Stable. I will sign off on this patient. Please reconsult as needed. Job ID: [id number]
--- NOTE | 2019-07-24 14:23 | PDOC.FMACP ---
Advance Care Planning - Problem (1) Pancreatic cancer Status: Acute Qualifiers: Pancreatic malignancy location: head of pancreas Qualified Code(s): C25.0 - Malignant neoplasm of head of pancreas - Note Participants: patient, other (daughter in law) Summary: Advanced Care Planning was discussed. The diagnosis, prognosis and goals of care were discussed. Appropriate forms and documentation to accomplish the goals of care were discussed. All questions were answered. DNR confirmed with patient. Will consult hospice. The Palliative Care Team will be engaged to assist with completion of any outstanding forms that are needed. Time Spent (mins): 20
--- NOTE | 2019-07-24 14:54 | PDOC.HOSPP ---
- Subjective Encounter Date: 07/24/19 Encounter Time: 14:30 Subjective: Patient seen and examined for Encephalopathy/BARB. No new complaints. No overnight events - Objective Vital Signs & Weight: Vital Signs (12 hours) Temp Pulse Resp Pulse Ox 07/24/19 13:34 70 18 98 07/24/19 12:00 98.0 F 07/24/19 10:56 98.0 F 07/24/19 07:48 99 07/24/19 07:26 61 20 100 07/24/19 07:24 98.0 F 07/24/19 04:00 97.5 F L Weight Admit Weight 176 lb 5.917 oz Weight 176 lb 12.972 oz Most Recent Monitor Data Heart Rate from ECG 75 NIBP 114/71 NIBP BP-Mean 85 Respiration from ECG 21 SpO2 97 I&O: 07/23/19 07/24/19 07/25/19 06:59 06:59 06:59 Intake Total 280 3286 240 Output Total 400 375 Balance -120 2911 240 Result Diagrams: 07/24/19 04:22 07/24/19 04:22 Additional Labs: Accuchecks 07/24/19 07/24/19 07/24/19 13:24 09:55 03:42 POC Glucose 154 H 164 H 166 H 07/23/19 07/23/19 07/23/19 23:42 20:07 16:40 POC Glucose 123 H 147 H 208 H EKG Reviewed by me: Yes (Tele SR) Hospitalist ROS - Review of Systems Respiratory: reports: SOB with excertion. denies: cough, dry, shortness of breath, hemoptysis, pleuritic pain, sputum, wheezing, other Cardiovascular: denies: chest pain, palpitations, orthopnea, paroxysmal noc. dyspnea, edema, light headedness, other - Medication Medications: Active Medications Generic Name Dose Route Start Last Admin Trade Name Freq PRN Reason Stop Dose Admin Albuterol/Ipratropium 3 ml 07/23/19 19:00 07/24/19 13:34 Duoneb NEB 3 ml [id number] YRIS Administration Famotidine 20 mg 07/23/19 09:00 07/24/19 09:37 Pepcid SLOW IVP 20 mg DAILY YRIS Administration Meropenem 500 mg/ Sodium 100 mls @ 200 mls/hr 07/22/19 22:00 07/24/19 09:37 Chloride IVPB 100 mls 1000,2200 YRIS Administration Insulin Human Regular 0 units 07/22/19 20:49 07/23/19 17:45 Humulin R SC 3 unit .MILD SLIDING SCALE PRN Administration Mild Correctional Scale Lactulose 10 gm 07/24/19 09:00 07/24/19 09:37 Lactulose PO 10 gm DAILY YRIS Administration Morphine Sulfate 2 mg 07/23/19 19:22 07/24/19 09:38 Morphine SLOW IVP 2 mg Q4H PRN Administration Moderate to Severe Pain (6-10) - Exam General Appearance: ill appearing Eye: scleral icterus Heart: RRR, no gallops, no rubs Respiratory: rales, rhonchi Gastrointestinal: soft, non-distended, normal bowel sounds Extremities: no cyanosis Musculoskeletal: generalized weakness Hosp A/P - Plan plan discussed w/ family, DVT proph w/SCDs 1. Toxic metabolic encephalopathy, multifactorial. 2. Obstructive jaundice due to Pancreatic CA s/p recent ERCP with stent placement 3. Acute kidney injury on chronic kidney disease stage 3 due to ATN (POA) 4. Metabolic acidosis. 5. Hyponatremia. 6. Anemia. 7. Coronary artery disease. 8. Ascites/coagulopathy/thrombocytopenia due to cirrhosis. 9. Chronic systolic heart failure, ejection fraction 30% to 35%, status post AICD. 10. Small loculated left pleural effusion. 11. Pulmonary opacity at the posterior base of the right lower lobe, pneumonia versus neoplasm. 12. Gallbladder distention with large amount of hyperdense material. 13. Chronic obstructive pulmonary disease, on home oxygen. 14. Diabetes mellitus type 2. 15. Hypertension. 16. Peripheral vascular disease, status post left below-knee amputation. 17. Tobacco dependence. 18. History of CVA. 19. Anxiety. 20. Gastroesophageal reflux disease. PLAN: Advance diet Hospice eval Cont other meds
[2019-07-24 15:09] VITALS: BP 114/71
--- NOTE | 2019-07-24 15:10 | PRG ---
DATE OF SERVICE: 07/24/2019 SERVICE: Pulmonary Medicine. INTERVAL HISTORY: The patient is doing fine from respiratory standpoint. He indicates he is breathing comfortably. He has no complaints of chest discomfort, nausea, or vomiting. Otherwise, there has been no interval change to his condition. PHYSICAL EXAMINATION: VITAL SIGNS: Afebrile, pulse 70, blood pressure 114/71, respirations 21, and saturation 97% on 2 L nasal cannula. GENERAL: The patient is awake and alert, in no apparent distress. LUNGS: Crackles are present. No prolonged expiratory phase or wheezing is appreciated. HEART: Normal rate and regular. ABDOMEN: Soft, nontender, and nondistended. Bowel sounds are positive. MUSCULOSKELETAL: No cyanosis or clubbing. There is diffuse 2+ edema. NEUROLOGIC: Grossly nonfocal. LABORATORY DATA: WBC 4.6, hemoglobin 8.0, platelets 42,000. INR 1.8. Creatinine 3.61, BUN 43, anion gap 9. Bicarb is improved to 22. Total bilirubin 14.9, AST 107. Alkaline phosphatase is up trending. Albumin 1.8. Blood cultures x2 are unremarkable. ASSESSMENT: 1. Metabolic encephalopathy, resolved. 2. Severe sepsis secondary to pancolitis. 3. Acute kidney injury. 4. Pancreatic cancer, widely metastatic. DISCUSSION AND PLAN: IV fluids will be interrupted. We will try to avoid any additional injury to the kidneys. Empiric antibiotics will be continued. At this point, he is stable for transition out of the ICU and can go to the Oncology floor. The alkaline phosphatase and bilirubin continue to trend upward. It is not clear whether or not the stent is effective. Job ID: [id number]
[2019-07-24 19:56] VITALS: TEMP 97.5
[2019-07-24] MEDS ORDERED: Famotidine 20 MG TAB PO SCH (21:00)
--- NOTE | 2019-07-25 12:29 | DIS ---
DATE OF ADMISSION: 07/22/2019 DATE OF DISCHARGE: 07/24/2019 DISCHARGE DISPOSITION: Inpatient hospice. DISCHARGE MEDICATIONS: Per Hospice. BRIEF HOSPITAL COURSE: The patient is a 59-year-old male with coronary artery disease, hypertension with recent diagnosis of pancreatic cancer with metastasis, presented to the hospital on July 22, 2019, with generalized weakness with altered mentation. He was admitted to the hospital with a diagnosis of toxic metabolic encephalopathy. His bilirubin on admission was around 14 with acute kidney injury with creatinine 3.6. Please note that he was discharged from [facility] recently after an ERCP with biliary stent placement. He underwent a CT scan of the chest, abdomen, and pelvis that was consistent with multiple pulmonary nodules with ascites and anasarca with cirrhosis. The patient was monitored in the intermediate care unit. He was seen by multiple consultants including Pulmonary, Gastroenterology, Nephrology as well as Palliative Care. Due to poor prognosis, the family and the patient agreed with inpatient hospice. FINAL DIAGNOSES: 1. Toxic metabolic encephalopathy, multifactorial. 2. Obstructive jaundice secondary to pancreatic cancer, status post recent ERCP with stent placement at [facility]. 3. Acute kidney injury on chronic kidney disease stage 3 secondary to acute tubular necrosis present on admission. 4. Metabolic acidosis. 5. Hyponatremia. 6. Anemia. 7. Coronary artery disease. 8. Ascites. 9. Coagulopathy. 10. Thrombocytopenia. 11. Chronic systolic heart failure, ejection fraction 30% to 35%, status post AICD. 12. Left-sided pleural effusion. 13. Gallbladder distention with large amount of hyperdense material. 14. Chronic obstructive pulmonary disease. 15. Chronic hypoxic respiratory failure, on home oxygen. 16. Diabetes mellitus type 2. 17. Peripheral vascular disease, status post left below-knee amputation. 18. Hypertension. 19. Tobacco dependence. 20. History of cerebrovascular accident. 21. Anxiety. 22. Gastroesophageal reflux disease. PLAN: Plan was discussed with the patient and the family in detail. They stated understanding. Job ID: [id number]
--- NOTE | 2019-07-31 05:15 | PQF ---
[employer] Management Consultant Crystal Reports Winform ViewerYBJACOB GRESHAM JAKOB QUAN MD [id number] [facility]- B03 [id number] CLINICAL DOCUMENTATION CLARIFICATION FORM: POST DISCHARGE Addendum to original discharge summary date: ____ Late entry note date: __ DATE: 07/31/2019 ATTN:JAKOB QUAN MD Please exercise your independent, professional judgment in responding to the clarification form. Clinical indicators are provided on the bottom of this form for your review Please check appropriate box(s) to clarify if the following diagnosis has been ruled in or ruled out: SEVERE SEPSIS (CDI/Coding list diagnosis here) [x ] Ruled in diagnosis [ ] Continue to treat [ x ] Resolved [ ] Ruled out diagnosis [ ] Cannot rule out diagnosis [ ] Other diagnosis [ ] Unable to determine In addition, please specify: Present on Admission (POA): [ ] Yes [ ] No [ ] Unable to determine For continuity of documentation, please document condition throughout progress notes and discharge summary. Thank You. CLINICAL INDICATORS - SIGNS / SYMPTOMS / LABS Severe sepsis 2/2 pancolitis - Documented in Consult note on 07/27 by Elina campos MD WBC 4.6 on 07/24 - Documented in Laboratory report Respiration rate 31 on 07/22 - Documented in ED report pg#2 Metabolic acidosis - Documented in H&P on 07/22 by JAKOB QUAN MD Altered mentation - Documented in H&P on 07/22 by JAKOB QUAN MD RISK FACTORS BARB and CKD 3- Documented in H&P on 07/22 by JAKOB QUAN MD Metabolic encephalopathy - Documented in H&P on 07/22 by JAKOB QUAN MD Ascites - Documented in H&P on 07/22 by JAKOB QUAN MD Chronic CHF - Documented in H&P on 07/22 by JAKOB QUAN MD TREATMENTS We will continue empiric antibiotics - Documented in Consult note on 07/27 by Elina campos MD Hospice care (This form is maintained as a part of the permanent medical record) 2014 [employer] All Rights Reserved [email or web address] [not [email or web address]] MTDD
== END 2019-07-24 20:37 | disposition hospice, inpatient (51) | DRG 871 ==
LOC: ERS 15:40 → IMCU/EMU 22:23
PROVIDERS: ADMIT Internal Medicine; ATTEND Internal Medicine
DX: A41.9 Sepsis, unspecified organism (principal); G92 Toxic encephalopathy; K83.1 Obstruction of bile duct; E43 Unspecified severe protein-calorie malnutrition; N17.0 Acute kidney failure with tubular necrosis; K51.00 Ulcerative (chronic) pancolitis without complications; E87.2 Acidosis; J90 Pleural effusion, not elsewhere classified; I13.0 Hypertensive heart and chronic kidney disease with heart failure and stage 1 through stage 4 chronic kidney disease, or unspecified chronic kidney disease; I50.22 Chronic systolic (congestive) heart failure; C25.9 Malignant neoplasm of pancreas, unspecified; E87.1 Hypo-osmolality and hyponatremia; I25.10 Atherosclerotic heart disease of native coronary artery without angina pectoris; Z86.73 Personal history of transient ischemic attack (TIA), and cerebral infarction without residual deficits; J44.9 Chronic obstructive pulmonary disease, unspecified; N18.3 Chronic kidney disease, stage 3 (moderate); Z95.1 Presence of aortocoronary bypass graft; Z95.5 Presence of coronary angioplasty implant and graft; Z95.810 Presence of automatic (implantable) cardiac defibrillator; Z89.512 Acquired absence of left leg below knee; Z87.891 Personal history of nicotine dependence; K72.90 Hepatic failure, unspecified without coma; D69.6 Thrombocytopenia, unspecified; F41.9 Anxiety disorder, unspecified; K70.31 Alcoholic cirrhosis of liver with ascites; K21.9 Gastro-esophageal reflux disease without esophagitis; Z51.5 Encounter for palliative care; Z68.25 Body mass index [BMI] 25.0-25.9, adult; Z99.81 Dependence on supplemental oxygen; E11.22 Type 2 diabetes mellitus with diabetic chronic kidney disease
CPT/HCPCS: 36415; 36416; 70450; 71045; 71250; 74177; 76705; 80053; 80069; 80076; 81003; 81015; 82010; 82140; 82533; 82570; 82805; 83605; 83690; 83735; 84156; 84300; 84484; 84540; 85025; 85610; 85730; 87040; 93005; 94640; J1815; J2185; J2270; J3490; J7042; J7620; S0028